=== PATIENT | female | born 1960 | race Caucasian/White ===

== ENCOUNTER 2017-01-21 18:27 | Emergency (ER) | payer OTHER ==
[2017-01-21 18:33] VITALS: BP 154/84; BMI 28.3
--- NOTE | 2017-01-21 19:44 | DR.GENAD ---
HPI - PCP Primary Care Physician: PAWEL - Complaint/Symptoms Chief Complaint Doctors Comments: Patient has had fibromyalgia and her other diagnosis for years but has not been able to get prescription medication because of no insurance. She went to her physician on last week but was told she needed to have lab work done before any medication for pain can be given. She now has insurance and wants pain medication. Chief Complaint:: PT C/O GENERALIZED PAIN ALL OVER FROM FIBROMIALGIA. PT STATES SHE HAS BEEN HAVING PAIN 3 DAYS AGO. 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, Ortho Surgery - Family History History of Family Medical Conditions: Yes Family Medical History: Diabetes Mellitus, Cancer, [place], Hypertension - Social History Does any household member use tobacco: No Alcohol Use: None Do you use any recreational Drugs:: No Lives With: Family Lives Where: Home - infectious screening In the last 2 months have you had wt loss of >10#?: NO Have you had fever, night sweats or hemotysis?: No Have you traveled outside the country in the last 6 months?: No Isolation: Standard ROS - Review of Systems Eyes: No Symptoms Reported ENTM: No Symptoms Reported Respiratoy: No Symptoms Reported Cardiovascular: No Symptoms Reported Gastrointestinal/Abdominal: No Symptoms Reported Genitourinary: No Symptoms Reported Neurological: No Symptoms Reported (generalized pain) Musculoskeletal: Back Pain, Joint Swelling, Hand Integumentary: No Symptoms Reported Hematologic/Lymphatic: No Symptoms Reported Endocrine: No Symptoms Reported Psychiatric: No Symptoms Reported All Other Systems: Reviewed and Negative PE - Vital Signs Vitals: Temperature 98.6 F Pulse Rate 100 Respiratory Rate 20 Blood Pressure [Right Arm] 122/73 Blood Pressure [Left Arm] 109/73 Blood Pressure 154/84 O2 Sat by Pulse Oximetry 97 - General Limitations: No Limitations General Appearance: Alert, In No Apparent Distress - Head Head Exam: Normal Inspection, Atraumatic - Eyes Eye exam: Normal Appearance, PERRL, EOMI - ENT ENT Exam: Normal Exam External Ear Exam: Normal External Inspection TM/Canal Exam: Bilateral Normal Nose Exam: Normal Nose Exam. negative: Sinus Tenderness, Abrasion Mouth Exam: Normal Inspection Throat Exam: Normal Inspection - Neck Neck Exam: Normal Inspection, Full ROM. negative: Tenderness - Chest Chest Inspection: Normal Inspection, Symmetric Chest Wall Rise - Respiratory Respiratory Exam: Normal Lung Sounds Bilat Respiratory Exam: Bilateral Clear to Auscultation - Cardiovascular Cardiovascular Exam: Regular Rate, Normal Rhythm - Abdominal Exam Abdominal Exam: Normal Inspection Abdominal Tenderness: negative: RUQ, RLQ, LUQ, LLQ, Epigastrium, Suprapubic, Diffuse, Mild, Moderate, Severe, Other - Extremities Extremities Exam: Normal Inspection, Full ROM - Back Back Exam: Normal Inspection - Neurologic Neurological Exam: Alert, Oriented X3, CN II-XII Intact - Psychiatric Psychiatric Exam: Normal Affect - Skin Skin Exam: Warm, Dry, Intact - Diagnosis Discharge Problem: Fibromyalgia affecting multiple sites - Discharge Plan Condition: Stable - Follow ups/Referrals Follow ups/Referrals: LEONARDO ARMAS [Primary Care Provider] - 3 days - Instructions
[2017-01-21] MEDS ORDERED: DEMEROL INJ IM ONE (19:50)
[2017-01-21] MEDS ORDERED: DEMEROL INJ ONE (19:52)
== END 2017-01-21 20:12 | disposition home or self-care (01) ==
LOC: ER 18:44
DX: M79.7 Fibromyalgia (principal)
CPT/HCPCS: 96372; 99282; J2175

== ENCOUNTER 2017-01-27 15:37 | Emergency (ER) | payer OTHER ==
[2017-01-27 15:43] VITALS: BP 132/70; BMI 30.2
== END 2017-01-27 17:07 | disposition home or self-care (01) ==
LOC: ER 15:46
DX: M54.5 Low back pain (principal)
CPT/HCPCS: 99281

== ENCOUNTER 2017-03-12 03:14 | Emergency (ER) | payer OTHER ==
[2017-03-12 03:31] VITALS: BP 142/80; BMI 30.2
== END 2017-03-12 03:35 | disposition left against medical advice (07) ==
LOC: ER 03:14
DX: R07.89 Other chest pain (principal)
CPT/HCPCS: 99281

== ENCOUNTER 2017-03-13 16:35 | Observation (INO) | payer OTHER ==
--- NOTE | 2017-03-13 18:06 | DR.H&P ---
H&P - History & Physical for Day of: H&P Date: 03/13/17 - Chief Complaint Chief Complaint: right middle finger infected, elevated blood sugar, fever - Allergies Allergies/Adverse Reactions: Allergies Allergy/AdvReac Type Severity Reaction Status Date / Time Dicyclomine [From Bentyl] Allergy Unknown Verified 01/27/17 15:43 Ketorolac Tromethamine Allergy Unknown Verified 01/27/17 15:43 [From Toradol] Metoclopramide [From Reglan] Allergy Unknown Verified 01/27/17 15:43 Nalbuphine [From Nubain] Allergy Unknown Verified 01/27/17 15:43 Prochlorperazine Allergy Unknown Verified 01/27/17 15:43 [From Compazine] - History of Present Illness History of Present Illness: patient is a 56-year-old white female, patient of Dr. White's, chronically E we'll. Patient was a direct admit from Dr. White's office after presenting with complaints of elevated blood sugar, fatigue, pain all over and infected right middle finger. She states her blood sugar at home was greater than 500 last p.m. today in the office it was 400. Patient is a diabetic as well as has a history of high blood pressure and CHF. Patient has what looks to be a paronychia to the right index finger without any discharge just localized redness and edema and severe tenderness. Plan to admit for further evaluation of hyperglycemia, administer IV antibiotics and wound culture and wound care, chest x-ray and admission labs. 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, Ortho Surgery - Family History Family Medical History: Diabetes Mellitus, Cancer, [place], Hypertension - Social History Does patient currently use any type of tobacco product: No Have you used tobacco products in the last 12 months: No Type of Tobacco Use: None Does any household member use tobacco: No Alcohol Use: None Drug Use: None - Review of Systems Constitutional: Fever, Malaise Eyes: No Symptoms Reported ENT: No Symptoms Reported Respiratory: No Symptoms Reported Cardiovascular: Edema Gastrointestinal: Nausea Genitourinary: No Symptoms Reported Musculoskeletal: Shoulder Pain, Back Pain, Hand Pain, Leg Pain, Neck Pain Skin: Wound Neurological: No Symptoms Reported - Physical Exam Vital Signs: Blood Pressure [Right Arm] 122/73 Blood Pressure [Left Arm] 109/73 Blood Pressure 142/80 Oriented: Normal Eyes: Normal Ear: Normal Nose: Normal Throat: Normal Respiratory: Clear Throughout Cardiovascular: Murmur, Edema (trace edema to bilateral lower extremities) : Normal Auscultation: Bowel Sounds: Normal Palpation: Normal Tenderness: Normal Skin: Red, Tender, Hot (right middle finger, localized redness, edema and tenderness to distal phalange) Musculoskeletal: Hand, Back:Thoracic, Back:Lumbar Mood Description: Calm Speech Pattern: Clear, Appropriate - Assessment/Plan (1) Cellulitis of finger of right hand Status: Acute Plan: ADMIT, WOUND CONSULT AND WOUND CULTURE, BLOOD CULTURES, cbc cmp ON ADMISSION. 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
[2017-03-13] MEDS ORDERED: NS 1000 ML 1,000 ML IV SCH (19:15)
[2017-03-13] MEDS ORDERED: SNACK - Diabetic Appropriate PO SCH (20:00)
[2017-03-13 20:11] LABS: BASOPHILS # (AUTO) 0.1 X10^3/uL (0.0-0.1); BASOPHILS % (AUTO) 0.9 % (0.2-1.0); EOSINOPHILS # (AUTO) 0.3 x10^3/uL (0.0-0.2); EOSINOPHILS % (AUTO) 4.1 % (0.9-2.9); HEMATOCRIT 33.1 % (36.0-47.0); HEMOGLOBIN 11.2 g/dL (12.0-16.0); LYMPHOCYTES # (AUTO) 1.6 X10^3/uL (1.3-2.9); LYMPHOCYTES % (AUTO) 20.6 % (21.0-51.0); MEAN CORPUSCULAR HEMOGLOBIN 27.9 pg (27.0-34.0); MEAN CORPUSCULAR HGB CONC 33.8 g/dL (33.0-35.0); MEAN CORPUSCULAR VOLUME 82.7 fL (80.0-100.0); MONOCYTES # (AUTO) 0.4 x10^3/uL (0.3-0.8); MONOCYTES % (AUTO) 4.9 % (0.0-13.0); NEUTROPHILS # (AUTO) 5.4 x10^3/uL (2.2-4.8); NEUTROPHILS % (AUTO) 69.5 % (42.0-75.0); PLATELET COUNT 226 X10^3/uL (150.0-450.0); RED BLOOD COUNT 4.01 X10^6/uL (3.5-5.4); RED CELL DISTRIBUTION WIDTH 15.4 % (11.6-16.5); WHITE BLOOD COUNT 7.8 X10^3/uL (3.6-10.0)
[2017-03-13 20:21] LABS: ALANINE AMINOTRANSFERASE 36 Units/L (12-78); ALBUMIN 3.2 g/dL (3.4-5.0); ALKALINE PHOSPHATASE 103 Units/L (46-116); ASPARTATE AMINO TRANSFERASE 31 Units/L (15-37); BLOOD UREA NITROGEN 26 mg/dL (7-18); CALCIUM 9.4 mg/dL (8.5-10.1); CARBON DIOXIDE 26.9 mmol/L (21-32); CHLORIDE 100 mmol/L (98-107); COR NA(FOR HYPERGLY) 142 mmol/L (136-145); CREATININE 1.16 mg/dL (0.55-1.02); GLUCOSE 360 mg/dL (65-99); SODIUM 136 mmol/L (136-145); TOTAL PROTEIN 7.8 g/dL (6.4-8.2); eGFR BLACK RACES > 60 (>60); eGFR NON BLACK RACES 51 (>60)
[2017-03-13] MEDS ORDERED: COLACE CAP 100 MG PO SCH (21:00)
[2017-03-13] MEDS: NORCO 7.5/325 MG TAB PO PRN (21:04)
[2017-03-13] MEDS: ZOFRAN INJ 4 MG VIAL IVP PRN (21:05)
[2017-03-13] MEDS: CLEOCIN 600 MG IV PREMIX 600 MG/50 ML BAG IV SCH (21:05)
[2017-03-13] MEDS: LEVAQUIN PREMIX IV 500 MG 500 MG/100 ML BAG IV SCH (21:12)
[2017-03-13] MEDS: HumuLIN R SUBCUT PRN (22:35)
[2017-03-13 22:53] LABS: BILIRUBIN,URINE NEGATIVE (NEGATIVE); BLOOD/HEMOGLOBIN,URINE 1+ (NEGATIVE); GLUCOSE, URINE 4+ (NEGATIVE); KETONES,URINE NEGATIVE (NEGATIVE); LEUKOCYTE ESTERASE ,URINE 2+ (NEGATIVE); NITRITES,URINE POSITIVE (NEGATIVE); PH,URINE 6.5 (5.0 - 8.0); PROTEIN,URINE NEGATIVE (NEGATIVE); UROBILINOGEN,URINE NORMAL (NORMAL)
--- NOTE | 2017-03-13 22:53 | RAD ---
Chest, one view Indication: Cellulitis Comparison: 11/06/2016 Findings: The cardiac silhouette is unremarkable. The lungs are clear, without focal infiltrates or significant pleural effusion. The bony thorax is unremarkable. Impression: No acute chest process. Reported By:
--- NOTE | 2017-03-13 22:53 | RAD ---
Right hand, three views Indication: Right middle finger cellulitis Comparison: None Findings: No cortical disruption or bony erosions identified. The joint spaces are grossly maintaine d. No soft tissue gas is seen. Impression: No radiographic evidence for osteomyelitis. Reported By:
[2017-03-13 23:08] VITALS: BMI 32.1
[2017-03-13 23:09] LABS: APPEARANCE,URINE HAZY (CLEAR); COLOR,URINE YELLOW (YELLOW)
[2017-03-13 23:10] LABS: BACTERIA,URINE 3+ /HPF (NEGATIVE); SQUAMOUS EPITHELIAL CELL,UR FEW /HPF (NEGATIVE)
[2017-03-14] MEDS: ATIVAN TAB 0.5 MG PO PRN ×2 (00:15→12:00)
[2017-03-14] MEDS: NORCO 7.5/325 MG TAB PO PRN ×2 (02:51→10:15)
[2017-03-14] MEDS: ZOFRAN INJ 4 MG VIAL IVP PRN ×2 (02:52→10:15)
[2017-03-14 04:59] LABS: ALANINE AMINOTRANSFERASE 32 Units/L (12-78); ALBUMIN 2.8 g/dL (3.4-5.0); ALKALINE PHOSPHATASE 83 Units/L (46-116); ASPARTATE AMINO TRANSFERASE 29 Units/L (15-37); BLOOD UREA NITROGEN 20 mg/dL (7-18); CALCIUM 9.2 mg/dL (8.5-10.1); CARBON DIOXIDE 29.1 mmol/L (21-32); CHLORIDE 103 mmol/L (98-107); COR CA(FOR HYPOALB) 10.2 mg/dL (8.5-10.1); COR NA(FOR HYPERGLY) 142 mmol/L (136-145); CREATININE 0.99 mg/dL (0.55-1.02); GLUCOSE 205 mg/dL (65-99); SODIUM 139 mmol/L (136-145); TOTAL PROTEIN 7.1 g/dL (6.4-8.2); eGFR BLACK RACES > 60 (>60); eGFR NON BLACK RACES > 60 (>60)
[2017-03-14 05:13] LABS: BASOPHILS # (AUTO) 0.1 X10^3/uL (0.0-0.1); BASOPHILS % (AUTO) 0.8 % (0.2-1.0); EOSINOPHILS # (AUTO) 0.3 x10^3/uL (0.0-0.2); EOSINOPHILS % (AUTO) 4.7 % (0.9-2.9); HEMATOCRIT 30.2 % (36.0-47.0); HEMOGLOBIN 10.3 g/dL (12.0-16.0); LYMPHOCYTES % (AUTO) 30.2 % (21.0-51.0); MEAN CORPUSCULAR HEMOGLOBIN 27.7 pg (27.0-34.0); MEAN CORPUSCULAR VOLUME 81.4 fL (80.0-100.0); MEAN PLATELET VOLUME 9.2 fL (7.4-11.0); MONOCYTES # (AUTO) 0.5 x10^3/uL (0.3-0.8); MONOCYTES % (AUTO) 6.7 % (0.0-13.0); NEUTROPHILS # (AUTO) 3.9 x10^3/uL (2.2-4.8); NEUTROPHILS % (AUTO) 57.6 % (42.0-75.0); PLATELET COUNT 205 X10^3/uL (150.0-450.0); RED BLOOD COUNT 3.71 X10^6/uL (3.5-5.4); RED CELL DISTRIBUTION WIDTH 15.1 % (11.6-16.5); WHITE BLOOD COUNT 6.7 X10^3/uL (3.6-10.0)
[2017-03-14] MEDS: CLEOCIN 600 MG IV PREMIX 600 MG/50 ML BAG IV SCH (05:48)
[2017-03-14] MEDS: HumuLIN R SUBCUT PRN ×2 (05:48→12:12)
[2017-03-14] MEDS: LEVAQUIN PREMIX IV 500 MG 500 MG/100 ML BAG IV SCH (08:49)
[2017-03-14 13:04] VITALS: BP 169/78
--- NOTE | 2017-03-14 13:55 | PCM.DCPLAN ---
Discharge Summary - Admission Date Date of Admission: 03/13/17 - Discharge Date Discharge Date: 03/14/17 - Admission Diagnoses (1) Cellulitis of finger of right hand Status: Acute (2) Uncontrolled diabetes mellitus Status: Inactive (3) CHF (congestive heart failure) Status: Acute (4) Diabetes mellitus type 2 Status: Inactive (5) Essential hypertension Status: Inactive - Discharge Diagnoses Discharge Diagnosis: same as admission - Discharge Medications Discharge Medications: Aspirin [ASPIRIN 325 MG *] 325 mg PO DAILY 03/13/17 [History] Lorazepam [Ativan Tab 0.5 mg] 0.5 mg PO Q8H PRN #30 tab 03/14/17 [Rx] Sulfamethoxazole-Trimethoprim [BACTRIM DS TAB 800/160 MG *] 1 tab PO BID #20 tab 03/14/17 [Rx] - Hospital Course Vital Signs: Temperature 98.7 F Pulse Rate [Right Brachial] 84 Respiratory Rate 20 Blood Pressure [Right Arm] 169/78 Blood Pressure [Left Arm] 109/73 Blood Pressure 142/80 O2 Sat by Pulse Oximetry 97 Latest Lab Results: Laboratory Last Values WBC 6.7 X10^3/uL (3.6-10.0) 03/14/17 03:45 RBC 3.71 X10^6/uL (3.5-5.4) 03/14/17 03:45 Hgb 10.3 g/dL (12.0-16.0) L 03/14/17 03:45 Hct 30.2 % (36.0-47.0) L 03/14/17 03:45 MCV 81.4 fL (80.0-100.0) 03/14/17 03:45 MCH 27.7 pg (27.0-34.0) 03/14/17 03:45 MCHC 34.0 g/dL (33.0-35.0) 03/14/17 03:45 RDW 15.1 % (11.6-16.5) 03/14/17 03:45 Plt Count 205 X10^3/uL (150.0-450.0) 03/14/17 03:45 MPV 9.2 fL (7.4-11.0) 03/14/17 03:45 Neut % 57.6 % (42.0-75.0) 03/14/17 03:45 Lymph % 30.2 % (21.0-51.0) 03/14/17 03:45 Stevens % 6.7 % (0.0-13.0) 03/14/17 03:45 Eos % 4.7 % (0.9-2.9) H 03/14/17 03:45 Baso % 0.8 % (0.2-1.0) 03/14/17 03:45 Neut # 3.9 x10^3/uL (2.2-4.8) 03/14/17 03:45 Lymph # 2.0 X10^3/uL (1.3-2.9) 03/14/17 03:45 Stevens # 0.5 x10^3/uL (0.3-0.8) 03/14/17 03:45 Eos # 0.3 x10^3/uL (0.0-0.2) H 03/14/17 03:45 Baso # 0.1 X10^3/uL (0.0-0.1) 03/14/17 03:45 Absolute Nucleated RBC 0.1 /100WBC 03/14/17 03:45 Sodium 139 mmol/L (136-145) 03/14/17 03:45 Corrected Sodium 142 mmol/L (136-145) 03/14/17 03:45 Potassium 4.2 mmol/L (3.5-5.1) 03/14/17 03:45 Chloride 103 mmol/L (98-107) 03/14/17 03:45 Carbon Dioxide 29.1 mmol/L (21-32) 03/14/17 03:45 BUN 20 mg/dL (7-18) H 03/14/17 03:45 Creatinine 0.99 mg/dL (0.55-1.02) 03/14/17 03:45 Est GFR (MDRD) Af Amer > 60 (>60) 03/14/17 03:45 Est GFR (MDRD) Non-Af > 60 (>60) 03/14/17 03:45 Glucose 205 mg/dL (65-99) H 03/14/17 03:45 Calcium 9.2 mg/dL (8.5-10.1) 03/14/17 03:45 Corrected Calcium 10.2 mg/dL (8.5-10.1) H 03/14/17 03:45 Total Bilirubin 0.30 mg/dL (0.2-1.0) 03/14/17 03:45 AST 29 Units/L (15-37) 03/14/17 03:45 ALT 32 Units/L (12-78) 03/14/17 03:45 Alkaline Phosphatase 83 Units/L (46-116) 03/14/17 03:45 Total Protein 7.1 g/dL (6.4-8.2) 03/14/17 03:45 Albumin 2.8 g/dL (3.4-5.0) L 03/14/17 03:45 Globulin 4.3 g/dL (2.5-4.5) 03/14/17 03:45 Albumin/Globulin Ratio 0.7 Ratio (1.1-2.1) L 03/14/17 03:45 Specimen Type Clean catch urine 03/13/17 22:44 Urine Color Yellow (YELLOW) 03/13/17 22:44 Urine Appearance Hazy (CLEAR) 03/13/17 22:44 Urine pH 6.5 (5.0 - 8.0) 03/13/17 22:44 Ur Specific [place] 1.010 (1.000-1.030) 03/13/17 22:44 Urine Protein Negative (NEGATIVE) 03/13/17 22:44 Urine Glucose (UA) 4+ (NEGATIVE) 03/13/17 22:44 Urine Ketones Negative (NEGATIVE) 03/13/17 22:44 Urine Occult Blood 1+ (NEGATIVE) 03/13/17 22:44 Urine Nitrite Positive (NEGATIVE) 03/13/17 22:44 Urine Bilirubin Negative (NEGATIVE) 03/13/17 22:44 Urine Urobilinogen Normal (NORMAL) 03/13/17 22:44 Ur Leukocyte Esterase 2+ (NEGATIVE) 03/13/17 22:44 Urine RBC 3-4 /HPF (NEGATIVE) 03/13/17 22:44 Urine WBC 10-12 /HPF (NEGATIVE) 03/13/17 22:44 Ur Squamous Epith Cells Few /HPF (NEGATIVE) 03/13/17 22:44 Urine Bacteria 3+ /HPF (NEGATIVE) 03/13/17 22:44 Ur Culture Indicated? Yes/culture set up 03/13/17 22:44 Hospital Course: patient is a 56-year-old white female who was admitted from Dr. White's office one day ago with complaints of elevated elevated blood sugar patient has a history of diabetes currently on sliding-scale insulin. Patient also had a paronychia to her right middle finger with mild localized redness. Patient was admitted for further evaluation of low-grade fever and elevated blood sugar. Patient also has a history of CHF and kidney disease patient was concerned she may be dehydrated. On admission patient's chemistry and CBC were stable with hyperglycemia noted. Patient was covered with sliding scale insulin. Patient received IV clindamycin and Levaquin she also had urine culture and wound culture which are pending. Patient on exam this morning had marked improvement redness to affected right middle finger. Patient states she feels much improved patient sugar was 200 on chemistry this a.m. patient's chest x-ray was without findings of CHF Patient with observation status. With improved blood sugars and stable labs planned to discharge patient home on Bactrim by mouth twice a day. Patient instructed to take sliding-scale insulin as instructed follow a low-carb diet and be compliant with medication. Patient instructed to follow-up on Sunday with Dr. White. Patient to continue home medications as well as the Bactrim. Patient will need a follow-up on Sunday to review culture results and follow-up on skin infection. Patient verbalized understanding. Patient also complained of some anxiety due to anniversary of her 's . Patient has a history of depression and anxiety patient was given a prescription for Ativan 0.5 mg by mouth daily when necessary for anxiety. Patient's condition was improved on discharge she left private vehicle with family member improved and stable. - Discharge Plan Disposition: HOME, SELF-CARE Condition: Stable Prescriptions: Lorazepam [Ativan Tab 0.5 mg] 0.5 mg PO Q8H PRN #30 tab PRN Reason: Anxiety Sulfamethoxazole-Trimethoprim [BACTRIM DS TAB 800/160 MG *] 1 tab PO BID #20 tab - Follow ups/Referrals Follow ups/Referrals: PIERRE WHITE [Primary Care Provider] - 03/19/17 1:45 pm - Instructions Instructions: Shortness of Breath, [id number], Nonspecific Chest Pain, Cellulitis, [id number], Hypertension, [id number]-[id number], Lorazepam tablets, Heart Failure, [id number], Type 2 Diabetes Mellitus, Adult, [id number], Sulfamethoxazole; Trimethoprim, SMX-TMP tablets
== END 2017-03-14 13:00 | disposition home or self-care (01) ==
LOC: MED/SURG 16:35
PROVIDERS: ADMIT Internal Medicine; ATTEND Internal Medicine
DX: L03.011 Cellulitis of right finger (principal); B95.62 Methicillin resistant Staphylococcus aureus infection as the cause of diseases classified elsewhere; N39.0 Urinary tract infection, site not specified; B96.29 Other Escherichia coli [E. coli] as the cause of diseases classified elsewhere; R50.9 Fever, unspecified; E11.65 Type 2 diabetes mellitus with hyperglycemia; I10 Essential (primary) hypertension; I50.9 Heart failure, unspecified; Z79.4 Long term (current) use of insulin; D64.89 Other specified anemias
CPT/HCPCS: 36415; 71010; 73130; 80053; 81001; 85025; 87070; 87075; 87077; 87086; 87088; 87186; 87205; A4222; G0378; J0077; J1815; J1956; J2405

== ENCOUNTER 2017-08-27 18:36 | Emergency (ER) | payer SELFPAY ==
[~2017-08-27 18:36] MED LIST: NITROSTAT SL ONE
[2017-08-27] MEDS ORDERED: ASPIRIN ONE (18:46)
[2017-08-27] MEDS ORDERED: NITROSTAT SL ONE (18:47)
[2017-08-27 18:52] VITALS: BMI 28.9
[2017-08-27] MEDS ORDERED: ASPIRIN PO STA (18:52)
[2017-08-27 19:03] LABS: BASOPHILS # (AUTO) 0.1 X10^3/uL (0.0-0.1); EOSINOPHILS # (AUTO) 0.4 x10^3/uL (0.0-0.2); EOSINOPHILS % (AUTO) 4.7 % (0.9-2.9); HEMATOCRIT 34.5 % (36.0-47.0); HEMOGLOBIN 11.7 g/dL (12.0-16.0); LYMPHOCYTES % (AUTO) 33.1 % (21.0-51.0); MEAN CORPUSCULAR HEMOGLOBIN 28.1 pg (27.0-34.0); MEAN CORPUSCULAR HGB CONC 33.9 g/dL (33.0-35.0); MEAN CORPUSCULAR VOLUME 82.9 fL (80.0-100.0); MEAN PLATELET VOLUME 9.2 fL (7.4-11.0); MONOCYTES # (AUTO) 0.6 x10^3/uL (0.3-0.8); MONOCYTES % (AUTO) 6.9 % (0.0-13.0); NEUTROPHILS % (AUTO) 54.3 % (42.0-75.0); PLATELET COUNT 252 X10^3/uL (150.0-450.0); RED BLOOD COUNT 4.16 X10^6/uL (3.5-5.4); RED CELL DISTRIBUTION WIDTH 15.6 % (11.6-16.5); WHITE BLOOD COUNT 9.1 X10^3/uL (3.6-10.0)
--- NOTE | 2017-08-27 19:13 | RAD ---
Single-view chest series: Indication: Chest pain, dizziness. Comparison: Chest series dated March 13, 2017. Technique: Single AP view of the chest obtained portably. Findings/impression: Lung volumes are normal without acute cardiopulmonary abnormality. There is no c ardiomegaly. No acute skeletal abnormality is appreciated. Reported By:
[2017-08-27 19:23] LABS: ALANINE AMINOTRANSFERASE 37 Units/L (12-78); ALBUMIN 3.4 g/dL (3.4-5.0); ALKALINE PHOSPHATASE 112 Units/L (46-116); BLOOD UREA NITROGEN 24 mg/dL (7-18); CALCIUM 9.2 mg/dL (8.5-10.1); CHLORIDE 87 mmol/L (98-107); CKMB % 1.5 % (<4); CREATINE KINASE 65 Units/L (26-192); CREATINE KINASE MB < 1.0 ng/mL (0-4.0); CREATININE 1.53 mg/dL (0.55-1.02); TOTAL PROTEIN 8.3 g/dL (6.4-8.2); TROPONIN I < 0.02 ng/mL (0-1.5); eGFR NON BLACK RACES 37 (>60)
[2017-08-27 19:31] LABS: ASPARTATE AMINO TRANSFERASE 20 Units/L (15-37)
[2017-08-27 19:32] LABS: eGFR BLACK RACES 45 (>60)
[2017-08-27 19:44] LABS: COR NA(FOR HYPERGLY) 137 mmol/L (136-145); SODIUM 126 mmol/L (136-145)
--- NOTE | 2017-08-27 21:38 | DR.CP ---
HPI - Time Seen Time seen: 18:30 - PCP Primary Care Physician: ellie - HPI Comment HPI Comment: MID STERNAL CHEST PAIN RADIATING TO LEFT ARM STARTED 15MINS BEFORE COMING TO ED. PAIN ASSOCIATED WITH WEAKNESS, SOB AND NAUSEA. - Complaint Chief Complaint Doctor Comments: CHEST PAIN Chief Complaint:: PT C/O MIDSTERNAL CHEST PAIN RADIATING TO HER LT ARM. ONSET ABOUT 15 MINUTES AGO. HX OF SAME. PT STATES NITRO USUALLY HELPS HER BTUT SHE WAS OUT TODAY Self Treatment fo Chief Complaint: PT HAS NITRO PATCH FROM YESTERDAY ON CHEST. REMOVED ON ARRIVAL - Reviewed Nurses Notes Review: Yes - Source History Provided: Patient - Mode of Arrival Mode of Arrival: Ambulatory - Timing Onset of Chief Complaint: 08/27/17 Came on: Suddenly Pain: Present Now - Duration Duration: Constant Duration: Minutes - Location Location of Chest Pain: Left, Chest Chest Pain Radiation Location: Left Arm - Context Onset: With heavy exertion Cardiac Risk Factors: Family History, Hyperlipidemia, HTN, Diabetes PE Risk Factors: None History of: Similar pain in the past, Angina, Angioplasty Prehospital Care: None - Quality Quality: Sharp, Pressure like - Severity Severity: Moderate - Modifying Factors Worsens: Nothing Impoves: Nothing - Associated Signs and Symptoms Associated Signs and Symptoms: Shortness of Breath PMH - PMH Past Medical History: Yes Past Medical History: Anemia, Anxiety, Arthritis, Asthma, CHF, Coronary Artery Disease, Diabetes, Dyslipidemia, Migraines, GERD, Hypertension, Kidney Stones, [place] Past Surgical History: Yes Surgical History: Appendectomy, CABG/Valve Surgery, 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 negative: Chills, Fever Eyes: No Symptoms Reported ENTM: No Symptoms Reported Respiratoy: Non-Productive Cough, Short of Breath, Wheezing. negative: Productive Cough, Hemoptysis Cardiovascular: Chest Pain. negative: Edema, Palpitations Gastrointestinal/Abdominal: Nausea Genitourinary: No Symptoms Reported Neurological: Emotional Problems, Weakness, Dizziness Musculoskeletal: Back Pain, Muscle Pain Integumentary: No Symptoms Reported Hematologic/Lymphatic: No Symptoms Reported Endocrine: negative: Flushing, Increased Thirst, Increased Urine All Other Systems: Reviewed and Negative PE - Vitals Vitals: Temperature 98.7 F Pulse Rate [Left Radial] 82 Pulse Rate 74 Respiratory Rate 18 Blood Pressure [Right Arm] 169/78 Blood Pressure [Left Arm] 110/72 Blood Pressure 179/82 O2 Sat by Pulse Oximetry 98 - General Limitations: No Limitations General Appearance: Alert - Head Head Exam: Normal Inspection - Eyes Eye exam: Normal Appearance - ENT ENT Exam: Normal External Ear Exam - Chest Chest Inspection: Symmetric Chest Wall Rise - Respiratory Respiratory Exam: Normal Lung Sounds Bilat Respiratory Exam: Bilateral Clear to Auscultation - Cardiovascular Cardiovascular Exam: Regular Rate, Normal Rhythm, Normal Heart Sounds Pulse: Normal, Radial, Femoral Edema: Normal - Abdominal Exam Abdominal Exam: Normal Bowel Sounds, Soft - Extremities Extremities Exam: Normal Inspection, Full ROM, Tenderness - Back Back Exam: Paraspinal Tenderness - Neurologic Neurological Exam: Alert, Oriented X3, CN II-XII Intact, Normal Gait, Reflexes Normal. negative: Motor Sensory Deficit - Psychiatric Psychiatric Exam: Normal Affect, Normal Mood - Skin Skin Exam: Normal Color MDM - Additional Information Additional Information Obtained From: Family - Differential Diagnosis Differential Diagnosis: Angina, Chest Wall Pain, Esophageal Reflux/Spasm, Gastritis, Myocardial Infarction, Pericarditis, Pleuritis, Pancreatitis, Pneumonia, Pneumothorax Course - Treatment Treatment: SEE ORDERS. NTG AND ASPIRIN IN ED. - Education/Counseling Education/Counseling: Patient, Education Educated On: Treatment, Diagnosis, Needs for Follow Up ROR - Labs Reviewed Laboratory Results Reviewed?: Yes Result Diagrams: 08/27/17 18:40 08/27/17 18:40 Laboratory: WBC 9.1 X10^3/uL (3.6-10.0) 08/27/17 18:40 RBC 4.16 X10^6/uL (3.5-5.4) 08/27/17 18:40 Hgb 11.7 g/dL (12.0-16.0) L 08/27/17 18:40 Hct 34.5 % (36.0-47.0) L 08/27/17 18:40 MCV 82.9 fL (80.0-100.0) 08/27/17 18:40 MCH 28.1 pg (27.0-34.0) 08/27/17 18:40 MCHC 33.9 g/dL (33.0-35.0) 08/27/17 18:40 RDW 15.6 % (11.6-16.5) 08/27/17 18:40 Plt Count 252 X10^3/uL (150.0-450.0) 08/27/17 18:40 MPV 9.2 fL (7.4-11.0) 08/27/17 18:40 Neut % 54.3 % (42.0-75.0) 08/27/17 18:40 Lymph % 33.1 % (21.0-51.0) 08/27/17 18:40 [place] % 6.9 % (0.0-13.0) 08/27/17 18:40 Eos % 4.7 % (0.9-2.9) H 08/27/17 18:40 Baso % 1.0 % (0.2-1.0) 08/27/17 18:40 Neut # 5.0 x10^3/uL (2.2-4.8) H 08/27/17 18:40 Lymph # 3.0 X10^3/uL (1.3-2.9) H 08/27/17 18:40 [place] # 0.6 x10^3/uL (0.3-0.8) 08/27/17 18:40 Eos # 0.4 x10^3/uL (0.0-0.2) H 08/27/17 18:40 Baso # 0.1 X10^3/uL (0.0-0.1) 08/27/17 18:40 Absolute Nucleated RBC 0.0 /100WBC 08/27/17 18:40 INR Target Range - 08/27/17 18:40 INR 0.94 (0.8-1.3) 08/27/17 18:40 PTT 26.2 SECONDS (22.9-36.5) 08/27/17 18:40 PTT Comment - 08/27/17 18:40 Sodium 126 mmol/L (136-145) L 08/27/17 18:40 Corrected Sodium 137 mmol/L (136-145) 08/27/17 18:40 Potassium 3.9 mmol/L (3.5-5.1) 08/27/17 18:40 Chloride 87 mmol/L (98-107) L 08/27/17 18:40 Carbon Dioxide 24.0 mmol/L (21-32) 08/27/17 18:40 BUN 24 mg/dL (7-18) H 08/27/17 18:40 Creatinine 1.53 mg/dL (0.55-1.02) H 08/27/17 18:40 Est GFR (MDRD) Af Amer 45 (>60) L 08/27/17 18:40 Est GFR (MDRD) Non-Af 37 (>60) L 08/27/17 18:40 Glucose 541 mg/dL (65-99) H* 08/27/17 18:40 Calcium 9.2 mg/dL (8.5-10.1) 08/27/17 18:40 Corrected Calcium TNP 08/27/17 18:40 Total Bilirubin 0.50 mg/dL (0.2-1.0) 08/27/17 18:40 AST 20 Units/L (15-37) 08/27/17 18:40 ALT 37 Units/L (12-78) 08/27/17 18:40 Alkaline Phosphatase 112 Units/L (46-116) 08/27/17 18:40 Creatine Kinase 65 Units/L (26-192) 08/27/17 18:40 CK-MB (CK-2) < 1.0 ng/mL (0-4.0) 08/27/17 18:40 CK/CKMB % Calc 1.5 % (<4) 08/27/17 18:40 Troponin I < 0.02 ng/mL (0-1.5) 08/27/17 18:40 Total Protein 8.3 g/dL (6.4-8.2) H 08/27/17 18:40 Albumin 3.4 g/dL (3.4-5.0) 08/27/17 18:40 Globulin 4.9 g/dL (2.5-4.5) H 08/27/17 18:40 Albumin/Globulin Ratio 0.7 Ratio (1.1-2.1) L 08/27/17 18:40 Acetone, Semi-Quant Negative (NEGATIVE) 08/27/17 18:40 - XRAY XRAY Interpreted by: Radiologist XRAY Findings: REPORT DISCUSS WITH PATIENT. - Diagnosis Discharge Problem: Hyperglycemia Chest pain Qualifiers: Chest pain type: precordial pain Qualified Code(s): R07.2 - Precordial pain - Discharge Plan Disposition: 01 HOME, SELF-CARE Condition: Stable Prescriptions: Hydroxyzine Pamoate [Vistaril] 25 mg PO TID PRN #15 cap PRN Reason: - Follow ups/Referrals Follow ups/Referrals: PIERRE NEVAREZ [Primary Care Provider] - 3 days - Instructions Instructions: Hyperglycemia, [id number], Chest Pain Observation Additional Instructions: RETURN TO ED IF WORSE.
[2017-08-27] MEDS ORDERED: VISTARIL PO ONE ×2 (21:45→21:55)
[2017-08-27 22:01] VITALS: BP 110/72
== END 2017-08-27 22:00 | disposition home or self-care (01) ==
LOC: ER 18:36
DX: R07.2 Precordial pain (principal); R73.9 Hyperglycemia, unspecified
CPT/HCPCS: 36415; 71010; 80053; 82009; 82550; 82553; 84484; 85025; 85610; 85730; 93005; 93010; 96365; 99283; 99285; A4222; Q0177

== ENCOUNTER 2017-10-21 15:24 | Emergency (ER) | payer SELFPAY ==
[2017-10-21 15:33] VITALS: BP 138/67; BMI 31.1
--- NOTE | 2017-10-21 17:04 | RAD ---
Examination: Right ribs, five views History: Pain Finding : No definite fracture, contour deformity or bone destruction. No evidence for pleural effusi on or pneumothorax. Impression: No acute or significant findings. Reported By:
--- NOTE | 2017-10-21 17:11 | DR.EXTPAIN ---
HPI - Time seen Time seen: 17:00 - PCP Primary Care Physician: ellie - Complaint/Symptoms Chief Complaint Doctor Comments: Patient admits to being seen by her primary care physician for the arthritis and back pain. The dose of medication is not helping She presents with complaint jose r right sided rib pain secondary to an injury years ago. Chief Complaint:: PT C/O RT RIB PAIN. 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 PT STATES SHE HAS BEEN HAVING TO SLEEP UPRIGHT DUE TO THE PAIN - Source History Provided: Patient - Mode of arrival Mode of Arrival: Ambulatory - Timing Onset of Chief Complaint: 10/19/17 PMH - PMH Past Medical History: Yes Past Medical History: Anemia, Anxiety, Arthritis, Asthma, CHF, Coronary Artery Disease, Diabetes, Dyslipidemia, Migraines, GERD, Hypertension, Kidney Stones, [place] Past Surgical History: Yes Surgical History: Appendectomy, CABG/Valve Surgery, Cholecystectomy, [employer] Surgery , Hysterectomy, Ortho Surgery - Family History History of Family Medical Conditions: Yes Family Medical History: Diabetes Mellitus, Cancer, [place], Hypertension - Social History Does any household member use tobacco: No Alcohol Use: None Do you use any recreational Drugs:: No Lives With: Family Lives Where: Home - infectious screening In the last 2 months have you had wt loss of >10#?: NO Have you had fever, night sweats or hemotysis?: No Have you traveled outside the country in the last 6 months?: No Isolation: Standard ROS - Review of Systems Constitutional: No Symptoms Reported Eyes: No Symptoms Reported ENTM: No Symptoms Reported Respiratoy: No Symptoms Reported Cardiovascular: No Symptoms Reported Gastrointestinal/Abdominal: No Symptoms Reported Genitourinary: No Symptoms Reported Neurological: No Symptoms Reported Musculoskeletal: Muscle Pain, Right (mid rib paiin) Hematologic/Lymphatic: No Symptoms Reported Endocrine: No Symptoms Reported Psychiatric: No Symptoms Reported All Other Systems: Reviewed and Negative PE - Vital Signs Vitals: Temperature 98.3 F Pulse Rate 80 Respiratory Rate 18 Blood Pressure [Right Arm] 169/78 Blood Pressure [Left Arm] 110/72 Blood Pressure 138/67 O2 Sat by Pulse Oximetry 97 - General Limitations: Physical Limitation (Decreased ROM due to right rib pain according to patient) General Appearance: Alert, In No Apparent Distress - Head Head Exam: Normal Inspection, Atraumatic - Eyes Eye exam: Normal Appearance, PERRL, EOMI - ENT ENT Exam: Normal Exam, Normal Oropharynx - Neck Neck Exam: Normal Inspection, Full ROM - Chest Chest Inspection: Normal Inspection - Respiratory Respiratory Exam: Normal Lung Sounds Bilat Respiratory Exam: Bilateral Clear to Auscultation - Cardiovascular Cardiovascular Exam: Regular Rate, Normal Rhythm - Abdominal Exam Abdominal Exam: Normal Inspection, Normal Bowel Sounds Abdominal Tenderness: negative: RUQ, RLQ, LUQ, LLQ, Epigastrium, Suprapubic, Diffuse, Mild, Moderate, Severe, Other - Extremities Extremities Exam: Normal Inspection, Full ROM - Upper Extremities Shoulder Exam: Normal Inspection, Full ROM Arm Exam: Normal Inspection Elbow Exam: Normal Inspection Forearm Exam: Normal Inspection Hand Exam: Normal Inspection Neuromotor Exam: Normal Exam Neurosensory Exam: Normal Exam Hand Tendon Exam: Flexor Digitorium Profundus (Location) Upper Ext. Vascular Exam: Capillary Refill - Lower Extremities Hip/Pelvis Exam: Normal Inspection Upper Leg Exam: Normal Inspection Knee Exam: Normal Inspection Lower Leg Exam: Normal Inspection Ankle Exam: Normal Inspection Foot/Toe Exam: Normal Inspection Neurovascular/Tendon Exam: Normal Capillary Refill Gait Exam: Observed and Normal - Back Back Exam: Normal Inspection, Tenderness (tenderness to right mid lateral rib cage.) ROR - XRAY XRAY Interpreted by: Radiologist (Chest: No acute abnormality noted) - Diagnosis Discharge Problem: Rib pain on right side - Discharge Plan Condition: Stable - Follow ups/Referrals Follow ups/Referrals: IPERRE NEVAREZ [Primary Care Provider] - 3 days - Instructions
[2017-10-21] MEDS ORDERED: VALIUM INJ IM ONE (17:18)
[2017-10-21] MEDS ORDERED: VALIUM INJ ONE (17:25)
== END 2017-10-21 17:49 | disposition home or self-care (01) ==
LOC: ER 15:24
DX: R07.81 Pleurodynia (principal)
CPT/HCPCS: 71111; 96372; 99282; J3360

== ENCOUNTER → 2017-12-20 | Outpatient (CLI) | payer SELFPAY ==
--- NOTE | 2017-12-21 16:02 | CT ---
History: Low back pain Study: CT lumbar spine without IV contrast Findings: Thin-section axial images were obtained through the lumbar spine. Multiplanar reformations were performed. Images from T10 through the mid sacrum were performed. At T10- T11, T11-T12, and T12-L1, no central or foraminal stenosis is seen. At L1-L2, mild facet hypertrophy is seen without central or foraminal stenosis. Mild anterior spurrin g is noted. At L2-L3, mild facet hypertrophy is seen with mild broad-based disc bulge. No central or foraminal st enosis is evident. At L3-L4, mild facet hypertrophy is seen with moderate broad-based disc bulge. Mild central canal ole nosis is seen without obvious foraminal narrowing At L4-L5, moderate facet hypertrophy is seen with broad-based disc bulge and mild central canal steno sis. There is at least mild left foraminal stenosis seen due to asymmetric disc bulge At L5-S1, moderate broad-based disc bulge is seen. No central or foraminal stenosis is evident. Moder ate facet arthrosis is evident. Incidental note is made of a 2 mm nonobstructive calculus in the left inferior renal pole. Scattered aortic plaque is seen. Impression: 1. Varying degrees evident facet hypertrophy and disc bulge with mild central canal stenosis noted at L3-L4 and L4-L5. 2. There is at least mild left foraminal stenosis L4-L5 due to asymmetric disc protrusion. Reported By:
== END | disposition home or self-care (01) ==
LOC: RAD 15:08
PROVIDERS: ATTEND Internal Medicine
DX: M51.26 Other intervertebral disc displacement, lumbar region (principal); M48.061 Spinal stenosis, lumbar region without neurogenic claudication
CPT/HCPCS: 72131

== ENCOUNTER 2017-12-25 06:26 | Emergency (ER) | payer SELFPAY ==
[2017-12-25 06:31] VITALS: BP 116/66; BMI 27.4
[2017-12-25] MEDS ORDERED: DEMEROL INJ IM ONE (06:56)
[2017-12-25] MEDS ORDERED: PHENERGAN INJ 25 MG IM ONE (06:56)
--- NOTE | 2017-12-25 06:58 | DR.GENAD ---
HPI - PCP Primary Care Physician: GERI - HPI Comment HPI Comment: LEFT HAND AND WRIST SWOLLEN FROM ARTHRITIS. HOME MEDICATION DID NOT HELP. - Complaint/Symptoms Chief Complaint Doctors Comments: PAIN LEFT WRIST AND HAND TIMES SEVERAL HOURS. Chief Complaint:: LEFT WRIST PAIN RADIATES DOWN TO FINGER TIPS. STABBING PAINS. Self Treatment fo Chief Complaint: LORCET, GOODY POWDERS, IBUPROFEN, - Nurses notes reviewed Nurses Notes Review: Yes - Source History Provided: Patient - Mode of Arrival Mode of Arrival: Ambulatory - Timing Onset of Chief Complaint: 12/25/17 Came on: Suddenly - Duration Duration: Constant Duration: Days - Severity Severity: Moderate PMH - PMH Past Medical History: Yes Past Medical History: Anemia, Anxiety, Arthritis, Asthma, CHF, Coronary Artery Disease, Diabetes, Dyslipidemia, Migraines, GERD, Hypertension, Kidney Stones, [place] Past Surgical History: Yes Surgical History: Appendectomy, CABG/Valve Surgery, Cholecystectomy, [employer] Surgery , Hysterectomy, Ortho Surgery - Family History History of Family Medical Conditions: Yes Family Medical History: Diabetes Mellitus, Cancer, [place], Hypertension - Social History Does patient currently use any type of tobacco product: No Have you used tobacco products in the last 12 months: No Type of Tobacco Use: None Alcohol Use: None Do you use any recreational Drugs:: No Lives Where: Home - infectious screening Have you traveled outside the country in the last 6 months?: No Isolation: Standard ROS - Review of Systems Constitutional: No Symptoms Reported Eyes: No Symptoms Reported ENTM: No Symptoms Reported Respiratoy: No Symptoms Reported Cardiovascular: No Symptoms Reported Gastrointestinal/Abdominal: No Symptoms Reported Genitourinary: No Symptoms Reported Neurological: Numbness Musculoskeletal: Joint Pain, Muscle Pain, Left, Wrist, Hand Integumentary: Change in Color Hematologic/Lymphatic: Easy Bleeding, Easy Bruising Endocrine: No Symptoms Reported All Other Systems: Reviewed and Negative PE - Vital Signs Vitals: Temperature 98.0 F Pulse Rate 77 Respiratory Rate 16 Blood Pressure [Right Arm] 169/78 Blood Pressure [Left Arm] 110/72 Blood Pressure 116/66 O2 Sat by Pulse Oximetry 98 - General Limitations: No Limitations General Appearance: Alert - Head Head Exam: Normal Inspection - Eyes Eye exam: Normal Appearance - ENT ENT Exam: Normal External Ear Exam External Ear Exam: Normal External Inspection TM/Canal Exam: Bilateral Normal Nose Exam: Normal Nose Exam Mouth Exam: Normal Inspection Throat Exam: Normal Inspection - Neck Neck Exam: Trachea Midline - Chest Chest Inspection: Symmetric Chest Wall Rise - Respiratory Respiratory Exam: Normal Lung Sounds Bilat Respiratory Exam: Bilateral Clear to Auscultation - Cardiovascular Cardiovascular Exam: Regular Rate, Normal Rhythm, Normal Heart Sounds - Abdominal Exam Abdominal Exam: Normal Inspection - Extremities Extremities Exam: Tenderness (LEFT HAND AND WRIST SWOLLEN AND TENDER. PABLO.) - Back Back Exam: Paraspinal Tenderness - Neurologic Neurological Exam: Alert, Oriented X3 - Psychiatric Psychiatric Exam: Normal Affect, Normal Mood - Skin Skin Exam: Normal Color MDM - Additional Information Additional Information Obtained From: Family - Differential Diagnosis Differential Diagnosis: ARTHRITIS, MUSCULOSKELETAL PAIN. Course - Treatment Treatment: SEE ORDERS. - Education/Counseling Education/Counseling: Patient, Family, Education Educated On: Diagnosis, Needs for Follow Up - Diagnosis Discharge Problem: Arthritis, Musculoskeletal pain - Discharge Plan Condition: Stable - Follow ups/Referrals Follow ups/Referrals: PIERRE NEVAREZ [Primary Care Provider] - 3 days - Instructions Instructions: Arthritis, Musculoskeletal Pain Additional Instructions: RETURN TO ED IF WORSE.
[2017-12-25] MEDS ORDERED: PHENERGAN INJ 25 MG ONE (07:07)
[2017-12-25] MEDS ORDERED: DEMEROL INJ ONE (07:08)
== END 2017-12-25 07:50 | disposition home or self-care (01) ==
LOC: ER 06:26
DX: M19.90 Unspecified osteoarthritis, unspecified site (principal); M79.1 Myalgia
CPT/HCPCS: 96372; 99282; J2175; J2550

== ENCOUNTER 2018-07-11 15:48 | Observation (INO) ==
--- NOTE | 2018-07-11 17:44 | DR.H&P ---
H&P - History & Physical for Day of: H&P Date: 07/11/18 - Chief Complaint Chief Complaint: fever, low bp, weakness, nausea and diarrhea, recent uti, elevated blood sugar - History of Present Illness History of Present Illness: 57 [address] SLOANO OFFICE AFTER PRESENTING FOR ER FOLLOW UP. PT WAS IN [place] ER 2 WEEKS AGO WITH "SEVERE KIDNEY INFECTION" WITH ACUTE RENAL FAILURE, PT STATES SHE HAS TAKEN ATBX AND NOW HAD CONTINUED WEAKNESS, NAUSEA AND DIARRHEA, DYSURIA, ELEVATED BLOOD SUGAR WITH KNOWN IDD. PT CO FEVER AND LOW BLOOD PRESSURE. PT REPORT BP 80/50 AT HOME. PT HAD TEMP OFFICE 100.4. PT HAS PMH OF DM, HTN, CAD, OA, TREY. 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, Hysterectomy, Ortho Surgery - Family History Family Medical History: Diabetes Mellitus, Cancer, [place], Hypertension - Social History Does patient currently use any type of tobacco product: No Have you used tobacco products in the last 12 months: No Type of Tobacco Use: None Does any household member use tobacco: No Alcohol Use: None Drug Use: None - Medications Home Medications: dicyclomine [From Bentyl] Allergy (Verified 03/29/18 20:23) ketorolac [From Toradol] Allergy (Verified 03/29/18 20:23) metoclopramide [From Reglan] Allergy (Verified 03/29/18 20:23) nalbuphine [From Nubain] Allergy (Verified 03/29/18 20:23) prochlorperazine [From Compazine] Allergy (Verified 03/29/18 20:23) - Review of Systems Constitutional: Fever, Chills, Weakness, Malaise ENT: No Symptoms Reported Respiratory: No Symptoms Reported Cardiovascular: No Symptoms Reported Gastrointestinal: Nausea, Diarrhea Genitourinary: Dysuria Musculoskeletal: Back Pain, Leg Pain Skin: No Symptoms Reported Neurological: Weakness - Physical Exam Vital Signs: Blood Pressure [Right Arm] 169/78 Blood Pressure [Left Arm] 127/75 Blood Pressure 127/75 Oriented: Normal Eyes: Normal Ear: Normal Nose: Normal Throat: Dry Respiratory: Clear Throughout Cardiovascular: Normal, Edema (BILATERAL LE TRACE EDEMA) : Normal Auscultation: Bowel Sounds: Normal Palpation: Normal Tenderness: Normal Skin: Decreased Turgur Musculoskeletal: Back:Lumbar Psychiatric: Anxiety Mood Description: Anxious Affect: Anxious Speech Pattern: Clear, Appropriate, Excessive - Assessment/Plan (1) Hyperglycemia Status: Acute Plan: ADMIT, CBC CMP ACETONE ON ADMISSION. BC AND UA/UC, CXR ON ADMISSION. CT ABD PELVIS R/O PYELONEPHTITIS. IV CIPRO, STOOL STUDIES. SSI, CLEAR LIQUIDS, N AUSEA CONTROL. REPEAT AM LABS, GENTLE HYDRATION (2) Diarrhea Status: Acute (3) UTI (urinary tract infection) Status: Acute (4) Fever Status: Acute (5) CHF (congestive heart failure) Status: Acute (6) GERD (gastroesophageal reflux disease) Status: Chronic (7) Diabetes mellitus type 1, uncontrolled Status: Chronic - Allergies Allergies/Adverse Reactions: Allergies Allergy/AdvReac Type Severity Reaction Status Date / Time dicyclomine [From Bentyl] Allergy Verified 03/29/18 20:23 ketorolac [From Toradol] Allergy Verified 03/29/18 20:23 metoclopramide [From Reglan] Allergy Verified 03/29/18 20:23 nalbuphine [From Nubain] Allergy Verified 03/29/18 20:23 prochlorperazine Allergy Verified 03/29/18 20:23 [From Compazine]
[2018-07-11] MEDS: CIPRO IV 400 MG PREMIX* 400 MG/200 ML IV.SOLN. IV SCH ×2 (18:02→21:02)
[2018-07-11] MEDS: NS 1000 ML 1,000 ML IV SCH (18:02)
[2018-07-11 18:16] LABS: BASOPHILS # (AUTO) 0.1 X10^3/uL (0.0-0.1); BASOPHILS % (AUTO) 0.7 % (0.2-1.0); EOSINOPHILS # (AUTO) 0.3 x10^3/uL (0.0-0.2); EOSINOPHILS % (AUTO) 3.4 % (0.9-2.9); HEMATOCRIT 32.6 % (36.0-47.0); HEMOGLOBIN 11.1 g/dL (12.0-16.0); LYMPHOCYTES # (AUTO) 2.4 X10^3/uL (1.3-2.9); LYMPHOCYTES % (AUTO) 29.1 % (21.0-51.0); MEAN CORPUSCULAR HEMOGLOBIN 28.8 pg (27.0-34.0); MEAN CORPUSCULAR VOLUME 84.7 fL (80.0-100.0); MEAN PLATELET VOLUME 8.5 fL (7.4-11.0); MONOCYTES # (AUTO) 0.6 x10^3/uL (0.3-0.8); MONOCYTES % (AUTO) 6.7 % (0.0-13.0); NEUTROPHILS % (AUTO) 60.1 % (42.0-75.0); PLATELET COUNT 265 X10^3/uL (150.0-450.0); RED BLOOD COUNT 3.85 X10^6/uL (3.5-5.4); RED CELL DISTRIBUTION WIDTH 16.4 % (11.6-16.5); WHITE BLOOD COUNT 8.3 X10^3/uL (3.6-10.0)
[2018-07-11 18:24] LABS: ALANINE AMINOTRANSFERASE 39 Units/L (12-78); ALBUMIN 3.3 g/dL (3.4-5.0); ALKALINE PHOSPHATASE 115 Units/L (46-116); ASPARTATE AMINO TRANSFERASE 28 Units/L (15-37); BLOOD UREA NITROGEN 25 mg/dL (7-18); CALCIUM 8.9 mg/dL (8.5-10.1); CHLORIDE 99 mmol/L (98-107); COR CA(FOR HYPOALB) 9.5 mg/dL (8.5-10.1); COR NA(FOR HYPERGLY) 141 mmol/L (136-145); CREATININE 1.14 mg/dL (0.55-1.02); SODIUM 136 mmol/L (136-145); TOTAL PROTEIN 7.8 g/dL (6.4-8.2); eGFR NON BLACK RACES 52 (>60)
--- NOTE | 2018-07-11 18:28 | RAD ---
HISTORY: Fever Study: AP portable chest Comparison: 03/08/2018 Findings: The lungs are clear. The heart size is normal. No acute bony abnormalities are identified. IMPRESSION: 1. No radiographic evidence of acute cardiopulmonary disease or significant change is noted when co mpared to the prior examination. Reported By:
[2018-07-11] MEDS: ZOFRAN INJ 4 MG VIAL IVP PRN (18:36)
[2018-07-11 18:50] VITALS: BMI 30.3
--- NOTE | 2018-07-11 19:02 | CT ---
CT abdomen and pelvis without contrast Indication: Abdominal pain. Comparison: No prior abdominal imaging currently available. The images of the lumbar spine from 12/20 reviewed Technique: Helical images through the abdomen and pelvis without contrast. Coronal and sagittal refor mats provided. Findings: Limited images through the lower chest shows few coronary artery calcifications without oth er acute abnormality. Review of bone windows shows spine degenerative change without destructive osse ous lesion Abdomen: The spleen, adrenal glands, pancreas, stomach and small bowel are normal. The colon is trent l. The appendix is absent. Vascular plaque is noted. Right kidney is normal. There is left kidney punctate 1-2 mm left lower pole renal stone on axial kaitlin ge 43. Pelvis: The urinary bladder contains gas. The rectum is normal. Uterus is absent. No adnexal region l esions seen. Impression: 1. Nonobstructing left lower pole renal stone 2. No acute abnormality otherwise. Scattered vascular calcifications, minimal spine degenerative lainez ge and other findings as above Reported By:
[2018-07-11] MEDS: NORCO 7.5/325 MG TAB PO PRN (19:54)
[2018-07-11] MEDS: SNACK - Diabetic Appropriate PO SCH (20:08)
[2018-07-11] MEDS: HumuLIN R SUBCUT PRN (20:48)
[2018-07-11 22:38] LABS: BILIRUBIN,URINE NEGATIVE (NEGATIVE); BLOOD/HEMOGLOBIN,URINE NEGATIVE (NEGATIVE); GLUCOSE, URINE 4+ (NEGATIVE); KETONES,URINE NEGATIVE (NEGATIVE); LEUKOCYTE ESTERASE ,URINE 1+ (NEGATIVE); NITRITES,URINE POSITIVE (NEGATIVE); PROTEIN,URINE NEGATIVE (NEGATIVE); UROBILINOGEN,URINE NORMAL (NORMAL)
[2018-07-11 22:45] LABS: APPEARANCE,URINE SLIGHTLY HAZY (CLEAR); BACTERIA,URINE 3+ /HPF (NEGATIVE); COLOR,URINE YELLOW (YELLOW); RBC,URINE NONE SEEN /HPF (NONE SEEN); SQUAMOUS EPITHELIAL CELL,UR RARE /HPF (NEGATIVE)
[2018-07-12] MEDS: ZOFRAN INJ 4 MG VIAL IVP PRN ×3 (00:38→18:05)
[2018-07-12] MEDS: NORCO 7.5/325 MG TAB PO PRN ×4 (00:38→23:25)
[2018-07-12] MEDS: DUONEB 0.5 MG/3 MG NEB PRN ×2 (01:08→12:15)
[2018-07-12] MEDS: HumuLIN R SUBCUT PRN ×4 (05:51→20:35)
[2018-07-12 06:03] LABS: BASOPHILS % (AUTO) 0.8 % (0.2-1.0); EOSINOPHILS # (AUTO) 0.3 x10^3/uL (0.0-0.2); EOSINOPHILS % (AUTO) 4.3 % (0.9-2.9); HEMATOCRIT 29.3 % (36.0-47.0); LYMPHOCYTES # (AUTO) 2.5 X10^3/uL (1.3-2.9); LYMPHOCYTES % (AUTO) 41.1 % (21.0-51.0); MEAN CORPUSCULAR HGB CONC 34.1 g/dL (33.0-35.0); MEAN CORPUSCULAR VOLUME 85.2 fL (80.0-100.0); MEAN PLATELET VOLUME 8.5 fL (7.4-11.0); MONOCYTES # (AUTO) 0.5 x10^3/uL (0.3-0.8); MONOCYTES % (AUTO) 7.6 % (0.0-13.0); NEUTROPHILS # (AUTO) 2.8 x10^3/uL (2.2-4.8); NEUTROPHILS % (AUTO) 46.2 % (42.0-75.0); PLATELET COUNT 205 X10^3/uL (150.0-450.0); RED BLOOD COUNT 3.44 X10^6/uL (3.5-5.4); RED CELL DISTRIBUTION WIDTH 16.3 % (11.6-16.5); WHITE BLOOD COUNT 6.1 X10^3/uL (3.6-10.0)
[2018-07-12 06:07] LABS: ALANINE AMINOTRANSFERASE 32 Units/L (12-78); ALBUMIN 2.8 g/dL (3.4-5.0); ALKALINE PHOSPHATASE 98 Units/L (46-116); ASPARTATE AMINO TRANSFERASE 27 Units/L (15-37); BLOOD UREA NITROGEN 20 mg/dL (7-18); CALCIUM 8.3 mg/dL (8.5-10.1); CARBON DIOXIDE 29.7 mmol/L (21-32); CHLORIDE 101 mmol/L (98-107); COR CA(FOR HYPOALB) 9.3 mg/dL (8.5-10.1); COR NA(FOR HYPERGLY) 142 mmol/L (136-145); CREATININE 1.03 mg/dL (0.55-1.02); SODIUM 138 mmol/L (136-145); TOTAL PROTEIN 6.8 g/dL (6.4-8.2); eGFR NON BLACK RACES 59 (>60)
[2018-07-12] MEDS: NS 1000 ML 1,000 ML IV SCH (06:39)
[2018-07-12] MEDS ORDERED: PATIENT'S HOME MEDICATION (Diltiazem Hcl [Diltiazem Hcl] 180 MG) PO SCH (09:00)
[2018-07-12] MEDS: CIPRO IV 400 MG PREMIX* 400 MG/200 ML IV.SOLN. IV SCH ×2 (09:27→20:25)
[2018-07-12] MEDS: LIPITOR TAB 40 MG PO SCH (10:05)
[2018-07-12] MEDS: ASPIRIN PO SCH (10:46)
[2018-07-12] MEDS: NEURONTIN TAB 600 MG PO SCH ×2 (10:46→20:26)
[2018-07-12] MEDS: LASIX PO SCH (10:46)
[2018-07-12] MEDS: K-DUR TAB 20 MEQ PO SCH ×2 (10:50→20:26)
[2018-07-12] MEDS: ZANTAC PO SCH ×2 (10:52→20:26)
[2018-07-12] MEDS: FLONASE NASAL SPRAY ENOSTRIL SCH (10:53)
[2018-07-12] MEDS: LANOXIN PO SCH (10:54)
[2018-07-12] MEDS: PLAVIX PO SCH (10:54)
[2018-07-12] MEDS: CARDIZEM CD 180 MG PO SCH (11:03)
[2018-07-12] MEDS: LOVENOX INJ 40 MG SYR SC SCH (11:23)
--- NOTE | 2018-07-12 12:37 | PCM.PROG ---
Progress Note - Progress Note for Day of Date of Exam: 07/12/18 - Subjective Subjective: 57 wf admitted on 07/11 with weakness, UTI, hyperglycemia and diarrhea.Pt was started on iv cipro. pt ua +nitrites, uc pending. pt cbc cmp stable, reviewed results with pt. pt reports continued elevated glucose, resovled nausea. pt asking to advance diet. plan to continue iv hydration, repeat am labs, blood sugar control - Past Medical Family Social History Past Med/Fam/Surg Hx: No changes since H&P Allergies: Allergies dicyclomine [From Bentyl] Allergy (Verified 03/29/18 20:23) ketorolac [From Toradol] Allergy (Verified 03/29/18 20:23) metoclopramide [From Reglan] Allergy (Verified 03/29/18 20:23) nalbuphine [From Nubain] Allergy (Verified 03/29/18 20:23) prochlorperazine [From Compazine] Allergy (Verified 03/29/18 20:23) - Review of Systems ROS: No change since H&P - Vital Signs and I&O's Vital Signs: Temperature 98.3 F Pulse Rate [Left Radial] 71 Pulse Rate 74 Respiratory Rate 17 Blood Pressure [Right Arm] 125/59 Blood Pressure [Left Arm] 127/75 Blood Pressure 135/58 O2 Sat by Pulse Oximetry 98 Intake and Output: Intake & Output 07/10/18 07/11/18 07/12/18 07/13/18 11:59 11:59 11:59 11:59 Intake Total 2089 / 2089 Output Total 800 / 800 Balance 1289 / 1289 - Physical Exam Oriented: Normal Eyes: Normal Ear: Normal Nose: Normal Throat: Dry Respiratory: Diminished Cardiovascular: Normal, Edema (BILATERAL LE TRACE EDEMA) : Normal Auscultation: Bowel Sounds: Normal Tenderness: Normal Skin: Decreased Turgur Musculoskeletal: Back:Lumbar Psychiatric: Anxiety Mood Description: Anxious Affect: Anxious Speech Pattern: Clear, Appropriate - Laboratory and Diagnostics Result Diagrams: 07/12/18 05:37 07/12/18 05:37 Labs: Laboratory WBC 6.1 X10^3/uL (3.6-10.0) 07/12/18 05:37 RBC 3.44 X10^6/uL (3.5-5.4) L 07/12/18 05:37 Hgb 10.0 g/dL (12.0-16.0) L 07/12/18 05:37 Hct 29.3 % (36.0-47.0) L 07/12/18 05:37 MCV 85.2 fL (80.0-100.0) 07/12/18 05:37 MCH 29.0 pg (27.0-34.0) 07/12/18 05:37 MCHC 34.1 g/dL (33.0-35.0) 07/12/18 05:37 RDW 16.3 % (11.6-16.5) 07/12/18 05:37 Plt Count 205 X10^3/uL (150.0-450.0) 07/12/18 05:37 MPV 8.5 fL (7.4-11.0) 07/12/18 05:37 Neut % (Auto) 46.2 % (42.0-75.0) 07/12/18 05:37 Lymph % (Auto) 41.1 % (21.0-51.0) 07/12/18 05:37 [place] % (Auto) 7.6 % (0.0-13.0) 07/12/18 05:37 Eos % (Auto) 4.3 % (0.9-2.9) H 07/12/18 05:37 Baso % (Auto) 0.8 % (0.2-1.0) 07/12/18 05:37 Neut # (Auto) 2.8 x10^3/uL (2.2-4.8) 07/12/18 05:37 Lymph # (Auto) 2.5 X10^3/uL (1.3-2.9) 07/12/18 05:37 [place] # (Auto) 0.5 x10^3/uL (0.3-0.8) 07/12/18 05:37 Eos # (Auto) 0.3 x10^3/uL (0.0-0.2) H 07/12/18 05:37 Baso # (Auto) 0.0 X10^3/uL (0.0-0.1) 07/12/18 05:37 Absolute Nucleated RBC 0.0 /100WBC 07/12/18 05:37 Sodium 138 mmol/L (136-145) 07/12/18 05:37 Corrected Sodium 142 mmol/L (136-145) 07/12/18 05:37 Potassium 4.4 mmol/L (3.5-5.1) 07/12/18 05:37 Chloride 101 mmol/L (98-107) 07/12/18 05:37 Carbon Dioxide 29.7 mmol/L (21-32) 07/12/18 05:37 BUN 20 mg/dL (7-18) H 07/12/18 05:37 Creatinine 1.03 mg/dL (0.55-1.02) H 07/12/18 05:37 Est GFR (MDRD) Af Amer > 60 (>60) 07/12/18 05:37 Est GFR (MDRD) Non-Af 59 (>60) 07/12/18 05:37 Glucose 275 mg/dL (65-99) H 07/12/18 05:37 POC Glucose (mg/dL) 338 mg/dL (65-99) H 07/11/18 20:43 Calcium 8.3 mg/dL (8.5-10.1) L 07/12/18 05:37 Corrected Calcium 9.3 mg/dL (8.5-10.1) 07/12/18 05:37 Total Bilirubin 0.30 mg/dL (0.2-1.0) 07/12/18 05:37 AST 27 Units/L (15-37) 07/12/18 05:37 ALT 32 Units/L (12-78) 07/12/18 05:37 Alkaline Phosphatase 98 Units/L (46-116) 07/12/18 05:37 Total Protein 6.8 g/dL (6.4-8.2) 07/12/18 05:37 Albumin 2.8 g/dL (3.4-5.0) L 07/12/18 05:37 Globulin 4.0 g/dL (2.5-4.5) 07/12/18 05:37 Albumin/Globulin Ratio 0.7 Ratio (1.1-2.1) L 07/12/18 05:37 Specimen Type Clean catch urine 07/11/18 22:23 Urine Color Yellow (YELLOW) 07/11/18 22:23 Urine Appearance Slightly hazy (CLEAR) 07/11/18: Urine pH 6.0 (5.0 - 8.0) 07/11/18: Ur Specific [place] 1.015 (1.000-1.030) 07/11/18: Urine Protein Negative (NEGATIVE) 07/11/18: Urine Glucose (UA) 4+ (NEGATIVE) 07/11/18: Urine Ketones Negative (NEGATIVE) 07/11/18: Urine Occult Blood Negative (NEGATIVE) 07/11/18: Urine Nitrite Positive (NEGATIVE) 07/11/18: Urine Bilirubin Negative (NEGATIVE) 07/11/18: Urine Acetone Negative (NEGATIVE) 07/11/18: Urine Urobilinogen Normal (NORMAL) 07/11/18 Ur Leukocyte Esterase 1+ (NEGATIVE) 07/11/18: Urine RBC None seen /HPF (NONE SEEN) 07/11/18: Urine WBC 5-10 /HPF (NONE SEEN) 07/11/18 Ur Squamous Epith Cells Rare /HPF (NEGATIVE) 07/11/18: Urine Bacteria 3+ /HPF (NEGATIVE) 07/11/18: Ur Culture Indicated? Yes/culture set up 07/11/18: - Plan (1) Hyperglycemia Status: Acute Plan: AM, CBC CMP. BC AND UA/UC, CXR ON ADMISSION. CT ABD PELVIS WITHOUT ACUTE FINDINGS, RESULTS REVIEWED WITH PT. CONNOR LUND, STOOL STUDIES. SSI,NAUSEA CONTROL, ADVANCE DIET. GENTLE HYDRATION (2) Diarrhea Status: Acute (3) UTI (urinary tract infection) Status: Acute (4) Fever Status: Acute (5) CHF (congestive heart failure) Status: Acute (6) GERD (gastroesophageal reflux disease) Status: Chronic (7) Diabetes mellitus type 1, uncontrolled Status: Chronic
[2018-07-12] MEDS: XOPENEX 1.25 MG/3 ML NEBULE NEB PRN ×2 (16:40→22:45)
[2018-07-12] MEDS: SNACK - Diabetic Appropriate PO SCH (20:25)
[2018-07-13] MEDS: NS 1000 ML 1,000 ML IV SCH ×3 (03:12→07:37)
[2018-07-13] MEDS: ZOFRAN INJ 4 MG VIAL IVP PRN (03:12)
[2018-07-13] MEDS: NORCO 7.5/325 MG TAB PO PRN (03:12)
[2018-07-13 05:40] LABS: BASOPHILS % (AUTO) 0.7 % (0.2-1.0); EOSINOPHILS # (AUTO) 0.2 x10^3/uL (0.0-0.2); EOSINOPHILS % (AUTO) 2.7 % (0.9-2.9); HEMATOCRIT 29.6 % (36.0-47.0); HEMOGLOBIN 10.1 g/dL (12.0-16.0); LYMPHOCYTES # (AUTO) 1.8 X10^3/uL (1.3-2.9); LYMPHOCYTES % (AUTO) 30.5 % (21.0-51.0); MEAN CORPUSCULAR HEMOGLOBIN 28.9 pg (27.0-34.0); MEAN CORPUSCULAR HGB CONC 34.1 g/dL (33.0-35.0); MEAN CORPUSCULAR VOLUME 84.7 fL (80.0-100.0); MEAN PLATELET VOLUME 8.5 fL (7.4-11.0); MONOCYTES # (AUTO) 0.5 x10^3/uL (0.3-0.8); MONOCYTES % (AUTO) 8.8 % (0.0-13.0); NEUTROPHILS # (AUTO) 3.5 x10^3/uL (2.2-4.8); NEUTROPHILS % (AUTO) 57.3 % (42.0-75.0); PLATELET COUNT 209 X10^3/uL (150.0-450.0); RED CELL DISTRIBUTION WIDTH 16.6 % (11.6-16.5)
[2018-07-13] MEDS: HumuLIN R SUBCUT PRN (05:41)
[2018-07-13 05:55] LABS: ALANINE AMINOTRANSFERASE 29 Units/L (12-78); ALBUMIN 2.9 g/dL (3.4-5.0); ALKALINE PHOSPHATASE 99 Units/L (46-116); ASPARTATE AMINO TRANSFERASE 16 Units/L (15-37); BLOOD UREA NITROGEN 20 mg/dL (7-18); CALCIUM 8.5 mg/dL (8.5-10.1); CARBON DIOXIDE 31.7 mmol/L (21-32); CHLORIDE 100 mmol/L (98-107); COR CA(FOR HYPOALB) 9.4 mg/dL (8.5-10.1); COR NA(FOR HYPERGLY) 143 mmol/L (136-145); CREATININE 1.17 mg/dL (0.55-1.02); SODIUM 137 mmol/L (136-145); TOTAL PROTEIN 7.1 g/dL (6.4-8.2); eGFR NON BLACK RACES 51 (>60)
[2018-07-13] MEDS: XOPENEX 1.25 MG/3 ML NEBULE NEB PRN (06:04)
[2018-07-13 08:12] VITALS: BP 162/84
[2018-07-13] MEDS: ASPIRIN PO SCH (09:06)
[2018-07-13] MEDS: LASIX PO SCH (09:07)
[2018-07-13] MEDS: CIPRO IV 400 MG PREMIX* 400 MG/200 ML IV.SOLN. IV SCH (09:07)
[2018-07-13] MEDS: LOVENOX INJ 40 MG SYR SC SCH (09:07)
[2018-07-13] MEDS: NEURONTIN TAB 600 MG PO SCH (09:07)
[2018-07-13] MEDS: FLONASE NASAL SPRAY ENOSTRIL SCH (09:07)
[2018-07-13] MEDS: PLAVIX PO SCH (09:07)
[2018-07-13] MEDS: CARDIZEM CD 180 MG PO SCH (09:07)
[2018-07-13] MEDS: LIPITOR TAB 40 MG PO SCH (09:07)
[2018-07-13] MEDS: ZANTAC PO SCH (09:07)
[2018-07-13] MEDS: LANOXIN PO SCH (09:08)
[2018-07-13] MEDS: K-DUR TAB 20 MEQ PO SCH (09:08)
== END 2018-07-13 09:00 | disposition home or self-care (01) ==
LOC: ICU
PROVIDERS: ADMIT Internal Medicine; ATTEND Internal Medicine
DX: R10.9 Unspecified abdominal pain; K21.9 Gastro-esophageal reflux disease without esophagitis; I10 Essential (primary) hypertension; R50.9 Fever, unspecified; E86.0 Dehydration; Z91.81 History of falling; R19.7 Diarrhea, unspecified; I95.9 Hypotension, unspecified; I50.9 Heart failure, unspecified; R26.81 Unsteadiness on feet; N39.0 Urinary tract infection, site not specified; E11.65 Type 2 diabetes mellitus with hyperglycemia
CPT/HCPCS: 36415; 71010; 71045; 74176; 80053; 80162; 81001; 82009; 85025; 87040; 87086; 94640; 96372; 96374; A4222; G0378; J0744; J1650; J1815; J2405; J7030; J7620

== ENCOUNTER 2018-12-10 10:10 | Inpatient (IN) ==
[2018-12-10] MEDS ORDERED: CONSULT PHARMACY - GENTAMICIN XX SCH (12:00)
--- NOTE | 2018-12-10 12:07 | DR.H&P ---
H&P - History & Physical for Day of: H&P Date: 12/10/18 - Chief Complaint Chief Complaint: uti, lower "bladder pressure" - History of Present Illness History of Present Illness: 58 WF DIRECT ADMIT AFTER BEING SEEN IN ER ON 12/08/ WITH C/O 3 DAY HISTORY OF "SORENESS IN BLADDER". DESCRIBES PAIN IN LOWER ABDOMEN CONSTANT NAGGING ACHE RATED 7.PT C/O BURNING WHEN URINATING. PT HAS ALSO HAD LOW GRADE FEVER. PT HAD UA IN ER, STARTED ON PO ANTIBIOTICS, CULTURE +ECOLI WITH HX OF PTS DRUG ALLERGIES AND MULTI-DRUG RESISTANCE INFECTION, PT ADMITTED FOR TREATMENT OF UTI, R/O URO SEPSIS. - Past Medical History Past Medical History: [place], Coronary Artery Disease, Hypertension, Dementia, Anxiety, Asthma, Arthritis Additional Medical History: Fibromyalgia, Congestive heart failure - Past Surgical History Surgical History: Angioplasty/Stents, Cholecystectomy, Hysterectomy, Ortho Surgery - Family History Family Medical History: Diabetes Mellitus, Cancer, [place], Coronary Artery Disease, Hypertension - Social History Does patient currently use any type of tobacco product: No Have you used tobacco products in the last 12 months: No Type of Tobacco Use: None Does any household member use tobacco: No Alcohol Use: None Drug Use: None - Medications Home Medications: ceftriaxone [From Rocephin] Allergy (Verified 12/08/18 17:12) dicyclomine [From Bentyl] Allergy (Verified 03/29/18 20:23) ketorolac [From Toradol] Allergy (Verified 03/29/18 20:23) metoclopramide [From Reglan] Allergy (Verified 03/29/18 20:23) nalbuphine [From Nubain] Allergy (Verified 03/29/18 20:23) prochlorperazine [From Compazine] Allergy (Verified 03/29/18 20:23) - Review of Systems Constitutional: Fever, Chills, Malaise Eyes: No Symptoms Reported ENT: No Symptoms Reported Respiratory: Shortness of Breath Cardiovascular: No Symptoms Reported Gastrointestinal: Abdominal Pain Genitourinary: Frequency Musculoskeletal: Back Pain Skin: No Symptoms Reported Neurological: No Symptoms Reported - Physical Exam Vital Signs: Blood Pressure [Right Arm] 146/68 Blood Pressure [Left Arm] 127/75 Blood Pressure 146/68 Oriented: Normal Eyes: Normal Ear: Normal Nose: Normal Throat: Normal Respiratory: RLL Diminished, LLL Diminished Cardiovascular: Normal : Normal Auscultation: Bowel Sounds: Normal Palpation: Normal Tenderness: Normal, Suprapubic, Mild Skin: Normal Musculoskeletal: Back:Lumbar Mood Description: Calm Affect: Anxious Speech Pattern: Clear, Appropriate - Assessment/Plan (1) UTI (urinary tract infection) Status: Acute Plan: +ECOLI CULTURE, ADMIT BLOOD AND URINE CULTURE ON ADMISSION. WITH PHARMACY CONSULT FOR GENTAMICIN DOSING. CBC CMP ON ADMISSION, UA. SLIDING SCALE INSULIN, BS CONTROL. VERIFY HOME MEDICATION, STRICT I & OS (2) Fever Status: Acute (3) Diabetes Status: Acute (4) GERD (gastroesophageal reflux disease) Status: Chronic (5) History of coronary artery disease Status: Chronic (6) Diabetic neuropathy Status: Chronic (7) Anxiety disorder Qualifiers: Anxiety disorder type: unspecified anxiety disorder Qualified Code(s): F41.9 - Anxiety disorder, unspecified Status: Chronic - Allergies Allergies/Adverse Reactions: Allergies Allergy/AdvReac Type Severity Reaction Status Date / Time ceftriaxone [From Rocephin] Allergy Verified 12/08/18 17:12 dicyclomine [From Bentyl] Allergy Verified 03/29/18 20:23 ketorolac [From Toradol] Allergy Verified 03/29/18 20:23 metoclopramide [From Reglan] Allergy Verified 03/29/18 20:23 nalbuphine [From Nubain] Allergy Verified 03/29/18 20:23 prochlorperazine Allergy Verified 03/29/18 20:23 [From Compazine]
[2018-12-10 13:44] LABS: BASOPHILS # (AUTO) 0.1 X10^3/uL (0.0-0.1); EOSINOPHILS # (AUTO) 0.5 x10^3/uL (0.0-0.2); EOSINOPHILS % (AUTO) 6.6 % (0.9-2.9); HEMATOCRIT 34.6 % (36.0-47.0); HEMOGLOBIN 11.6 g/dL (12.0-16.0); LYMPHOCYTES # (AUTO) 1.5 X10^3/uL (1.3-2.9); LYMPHOCYTES % (AUTO) 21.3 % (21.0-51.0); MEAN CORPUSCULAR HEMOGLOBIN 25.9 pg (27.0-34.0); MEAN CORPUSCULAR HGB CONC 33.4 g/dL (33.0-35.0); MEAN CORPUSCULAR VOLUME 77.5 fL (80.0-100.0); MEAN PLATELET VOLUME 8.4 fL (7.4-11.0); MONOCYTES # (AUTO) 0.5 x10^3/uL (0.3-0.8); MONOCYTES % (AUTO) 6.9 % (0.0-13.0); NEUTROPHILS # (AUTO) 4.5 x10^3/uL (2.2-4.8); NEUTROPHILS % (AUTO) 64.2 % (42.0-75.0); PLATELET COUNT 264 X10^3/uL (150.0-450.0); RED BLOOD COUNT 4.47 X10^6/uL (3.5-5.4); RED CELL DISTRIBUTION WIDTH 17.5 % (11.6-16.5)
[2018-12-10 14:03] LABS: ALANINE AMINOTRANSFERASE 34 Units/L (12-78); ALBUMIN 3.6 g/dL (3.4-5.0); ALKALINE PHOSPHATASE 121 Units/L (46-116); ASPARTATE AMINO TRANSFERASE 23 Units/L (15-37); BLOOD UREA NITROGEN 16 mg/dL (7-18); CALCIUM 9.2 mg/dL (8.5-10.1); CHLORIDE 103 mmol/L (98-107); COR NA(FOR HYPERGLY) 143 mmol/L (136-145); CREATININE 1.08 mg/dL (0.55-1.02); SODIUM 139 mmol/L (136-145); TOTAL PROTEIN 8.2 g/dL (6.4-8.2); eGFR NON BLACK RACES 55 (>60)
[2018-12-10] MEDS: ZOFRAN TAB 4 MG SL PRN ×2 (14:06→20:58)
[2018-12-10] MEDS: NS 1000 ML 1,000 ML IV SCH (14:06)
[2018-12-10] MEDS ORDERED: NS 1000 ML 1,000 ML ONE (14:13)
[2018-12-10] MEDS ORDERED: ZOFRAN INJ 4 MG VIAL ONE (14:14)
[2018-12-10 14:15] LABS: PLATELET MORPHOLOGY COMMENT NORMAL (NORMAL)
[2018-12-10 14:16] LABS: ANISOCYTOSIS SLIGHT; HYPOCHROMASIA SLIGHT; MICROCYTOSIS SLIGHT
[2018-12-10 14:35] VITALS: BMI 27.2
[2018-12-10] MEDS ORDERED: PROVENTIL NEB TX 0.083% 2.5MG/ 3ML NEB PRN (14:44)
[2018-12-10] MEDS: GENTAMICIN INJ 100 MG in NS 100 ML IV 100 ML IV SCH ×2 (15:30→21:00)
[2018-12-10] MEDS: HumuLIN R SUBCUT PRN ×2 (17:07→20:57)
[2018-12-10] MEDS: NORCO 5/325 MG TAB PO PRN ×2 (17:08→22:39)
[2018-12-10 18:26] LABS: APPEARANCE,URINE CLOUDY (CLEAR); COLOR,URINE ORANGE (YELLOW); PROTEIN,URINE 2+ (NEGATIVE)
[2018-12-10 18:27] LABS: BILIRUBIN,URINE NEGATIVE (NEGATIVE); BLOOD/HEMOGLOBIN,URINE 1+ (NEGATIVE); GLUCOSE, URINE 4+ (NEGATIVE); KETONES,URINE NEGATIVE (NEGATIVE); LEUKOCYTE ESTERASE ,URINE 2+ (NEGATIVE); NITRITES,URINE POSITIVE (NEGATIVE); UROBILINOGEN,URINE 1+ (NORMAL)
[2018-12-10 18:34] LABS: BACTERIA,URINE 4+ /HPF (NEGATIVE); SQUAMOUS EPITHELIAL CELL,UR FEW /HPF (NEGATIVE)
[2018-12-10] MEDS ORDERED: SNACK - Diabetic Appropriate PO SCH (20:00)
[2018-12-11] MEDS: NS 1000 ML 1,000 ML IV SCH ×2 (02:32→15:51)
[2018-12-11] MEDS: NORCO 5/325 MG TAB PO PRN ×4 (03:56→22:28)
[2018-12-11] MEDS: ZOFRAN TAB 4 MG SL PRN ×3 (03:56→22:29)
[2018-12-11] MEDS: GENTAMICIN INJ 100 MG in NS 100 ML IV 100 ML IV SCH ×4 (05:20→21:45)
[2018-12-11 05:34] LABS: BASOPHILS # (AUTO) 0.1 X10^3/uL (0.0-0.1); BASOPHILS % (AUTO) 0.7 % (0.2-1.0); EOSINOPHILS # (AUTO) 0.5 x10^3/uL (0.0-0.2); HEMATOCRIT 32.6 % (36.0-47.0); HEMOGLOBIN 10.7 g/dL (12.0-16.0); LYMPHOCYTES % (AUTO) 41.1 % (21.0-51.0); MEAN CORPUSCULAR HEMOGLOBIN 25.8 pg (27.0-34.0); MEAN CORPUSCULAR HGB CONC 32.9 g/dL (33.0-35.0); MEAN CORPUSCULAR VOLUME 78.4 fL (80.0-100.0); MEAN PLATELET VOLUME 8.8 fL (7.4-11.0); MONOCYTES # (AUTO) 0.5 x10^3/uL (0.3-0.8); MONOCYTES % (AUTO) 6.2 % (0.0-13.0); NEUTROPHILS # (AUTO) 3.3 x10^3/uL (2.2-4.8); PLATELET COUNT 246 X10^3/uL (150.0-450.0); RED BLOOD COUNT 4.15 X10^6/uL (3.5-5.4); RED CELL DISTRIBUTION WIDTH 17.2 % (11.6-16.5); WHITE BLOOD COUNT 7.3 X10^3/uL (3.6-10.0)
[2018-12-11 05:48] LABS: ALANINE AMINOTRANSFERASE 30 Units/L (12-78); ALBUMIN 3.1 g/dL (3.4-5.0); ALKALINE PHOSPHATASE 110 Units/L (46-116); ASPARTATE AMINO TRANSFERASE 22 Units/L (15-37); BLOOD UREA NITROGEN 15 mg/dL (7-18); CALCIUM 8.9 mg/dL (8.5-10.1); CARBON DIOXIDE 27.4 mmol/L (21-32); CHLORIDE 105 mmol/L (98-107); COR CA(FOR HYPOALB) 9.6 mg/dL (8.5-10.1); COR NA(FOR HYPERGLY) 142 mmol/L (136-145); CREATININE 1.05 mg/dL (0.55-1.02); SODIUM 140 mmol/L (136-145); TOTAL PROTEIN 7.5 g/dL (6.4-8.2); eGFR NON BLACK RACES 57 (>60)
[2018-12-11 05:59] LABS: ANISOCYTOSIS SLIGHT; HYPOCHROMASIA SLIGHT; PLATELET MORPHOLOGY COMMENT NORMAL (NORMAL)
[2018-12-11] MEDS: NEURONTIN CAP 300 MG PO SCH ×2 (09:54→20:43)
--- NOTE | 2018-12-11 11:49 | RAD ---
History: Abdominal pain Study: Acute abdominal series Comparison: CT abdomen and pelvis dated July 11, 2018 Findings: The lungs are clear and the heart size is normal. The descending aorta is tortuous. There is mild levoscoliosis of the lower thoracic spine. The gallbladder surgically absent. There is large amount of fecal material in the colon. There is no abnormal gaseous distention of bowel. There is minimal dextroscoliosis of the lumbar spine. No abnormal calcification is demonstrated. Impression: Graph 1. Probable constipation 2. Mild thoracolumbar scoliosis Reported By:
[2018-12-11] MEDS: HumuLIN R SUBCUT PRN ×3 (12:02→21:43)
[2018-12-11] MEDS ORDERED: PHARMACY COMMENT IV NR (13:30)
[2018-12-11] MEDS ORDERED: LASIX PO PRN (14:01)
[2018-12-11 14:06] LABS: CREATININE 1.16 mg/dL (0.55-1.02); GENTAMICIN,TROUGH 1.4 ug/mL (0-1.9)
[2018-12-11] MEDS ORDERED: ACTOS PO SCH (14:15)
[2018-12-11] MEDS ORDERED: ACTOS PO ONE (15:38)
[2018-12-11] MEDS ORDERED: NITRODUR PATCH 0.4 MG/HR TD ONE (15:39)
[2018-12-11] MEDS ORDERED: K-DUR TAB 20 MEQ PO PRN (15:43)
[2018-12-11] MEDS: LIPITOR TAB 40 MG PO SCH (15:52)
[2018-12-11] MEDS: ASPIRIN PO SCH (15:53)
[2018-12-11] MEDS: CARDIZEM CD 180 MG PO SCH (15:53)
[2018-12-11] MEDS: TOPAMAX PO SCH (15:53)
[2018-12-11] MEDS: COZAAR PO SCH (15:53)
[2018-12-11] MEDS: NITRODUR PATCH 0.4 MG/HR TD SCH (15:54)
[2018-12-11] MEDS: PLAVIX PO SCH (15:56)
[2018-12-11] MEDS: LANOXIN PO SCH ×2 (15:57→15:58)
[2018-12-11] MEDS: FLONASE NASAL SPRAY ENOSTRIL SCH (17:13)
[2018-12-11] MEDS: SNACK - Diabetic Appropriate PO SCH (20:39)
[2018-12-11] MEDS: GLUCOTROL PO SCH (20:42)
[2018-12-11] MEDS: ZOLOFT PO SCH (20:43)
[2018-12-11] MEDS: ZANTAC PO SCH (20:43)
[2018-12-11] MEDS: TOUJEO SOLOSTAR PEN SC SCH (21:02)
[2018-12-12] MEDS: ZOFRAN TAB 4 MG SL PRN ×3 (04:56→20:18)
[2018-12-12 05:29] LABS: BASOPHILS # (AUTO) 0.1 X10^3/uL (0.0-0.1); EOSINOPHILS # (AUTO) 0.5 x10^3/uL (0.0-0.2); EOSINOPHILS % (AUTO) 6.2 % (0.9-2.9); HEMATOCRIT 31.9 % (36.0-47.0); HEMOGLOBIN 10.4 g/dL (12.0-16.0); LYMPHOCYTES # (AUTO) 2.9 X10^3/uL (1.3-2.9); LYMPHOCYTES % (AUTO) 37.2 % (21.0-51.0); MEAN CORPUSCULAR HEMOGLOBIN 25.9 pg (27.0-34.0); MEAN CORPUSCULAR HGB CONC 32.7 g/dL (33.0-35.0); MEAN CORPUSCULAR VOLUME 79.4 fL (80.0-100.0); MEAN PLATELET VOLUME 8.8 fL (7.4-11.0); MONOCYTES # (AUTO) 0.6 x10^3/uL (0.3-0.8); MONOCYTES % (AUTO) 8.1 % (0.0-13.0); NEUTROPHILS # (AUTO) 3.7 x10^3/uL (2.2-4.8); NEUTROPHILS % (AUTO) 47.5 % (42.0-75.0); PLATELET COUNT 258 X10^3/uL (150.0-450.0); RED BLOOD COUNT 4.02 X10^6/uL (3.5-5.4); RED CELL DISTRIBUTION WIDTH 17.5 % (11.6-16.5); WHITE BLOOD COUNT 7.8 X10^3/uL (3.6-10.0)
[2018-12-12] MEDS: GENTAMICIN INJ 100 MG in NS 100 ML IV 100 ML IV SCH (05:35)
[2018-12-12 05:42] LABS: ALBUMIN 2.9 g/dL (3.4-5.0); CALCIUM 8.5 mg/dL (8.5-10.1); COR CA(FOR HYPOALB) 9.4 mg/dL (8.5-10.1); CREATININE 1.21 mg/dL (0.55-1.02); TOTAL PROTEIN 7.1 g/dL (6.4-8.2)
[2018-12-12] MEDS: NORCO 5/325 MG TAB PO PRN ×3 (05:44→20:20)
[2018-12-12] MEDS: NS 1000 ML 1,000 ML IV SCH ×3 (05:46→22:51)
[2018-12-12 06:13] LABS: ANISOCYTOSIS SLIGHT; HYPOCHROMASIA SLIGHT; PLATELET MORPHOLOGY COMMENT NORMAL (NORMAL)
[2018-12-12] MEDS: ZANTAC PO SCH ×2 (09:04→20:19)
[2018-12-12] MEDS: ASPIRIN PO SCH (09:04)
[2018-12-12] MEDS: CARDIZEM CD 180 MG PO SCH (09:12)
[2018-12-12] MEDS: LANOXIN PO SCH (09:13)
[2018-12-12] MEDS: FLONASE NASAL SPRAY ENOSTRIL SCH (09:13)
[2018-12-12] MEDS: COZAAR PO SCH (09:13)
[2018-12-12] MEDS: GLUCOTROL PO SCH ×2 (09:13→20:19)
[2018-12-12] MEDS: NITRODUR PATCH 0.4 MG/HR TD SCH (09:16)
[2018-12-12] MEDS: NEURONTIN CAP 300 MG PO SCH ×2 (09:16→20:20)
[2018-12-12] MEDS: LIPITOR TAB 40 MG PO SCH (09:16)
[2018-12-12] MEDS: PLAVIX PO SCH (09:17)
[2018-12-12] MEDS: TOPAMAX PO SCH (09:17)
[2018-12-12] MEDS: HumuLIN R SUBCUT PRN ×3 (11:51→21:02)
[2018-12-12 13:56] LABS: CREATINE KINASE 33 Units/L (26-192); CREATINE KINASE MB < 1.0 ng/mL (0-4.0); TROPONIN I < 0.02 ng/mL (0-1.5)
--- NOTE | 2018-12-12 13:56 | PCM.PROG ---
Progress Note - Progress Note for Day of Date of Exam: 12/11/18 - Subjective Subjective: 58 WF ADMITTED ON 12/10 WITH UTI URINE CULTURE + FOR ECOLI. PT CURRENTLY ON IV GENTAMICIN. PT WBC - Past Medical Family Social History Past Med/Fam/Surg Hx: No changes since H&P Allergies: Allergies ceftriaxone [From Rocephin] Allergy (Verified 12/08/18 17:12) dicyclomine [From Bentyl] Allergy (Verified 03/29/18 20:23) ketorolac [From Toradol] Allergy (Verified 03/29/18 20:23) metoclopramide [From Reglan] Allergy (Verified 03/29/18 20:23) nalbuphine [From Nubain] Allergy (Verified 03/29/18 20:23) prochlorperazine [From Compazine] Allergy (Verified 03/29/18 20:23) - Review of Systems ROS: No change since H&P - Vital Signs and I&O's Vital Signs: Temperature 98.3 F Pulse Rate [Right Brachial] 68 Pulse Rate 74 Respiratory Rate 20 Blood Pressure [Right Arm] 160/75 Blood Pressure [Left Arm] 127/75 Blood Pressure 146/68 O2 Sat by Pulse Oximetry 97 Intake and Output: Intake & Output 12/10/18 12/11/18 12/12/18 12/13/18 11:59 11:59 11:59 11:59 Intake Total 2088 / 2088 2337 / 2337 Output Total 1200 / 1200 4000 / 4000 Balance 888 / 888 -1663 / -1663 - Physical Exam Oriented: Normal Eyes: Normal Ear: Normal Nose: Normal Throat: Normal Respiratory: Diminished Cardiovascular: Normal : Normal Auscultation: Bowel Sounds: Normal Tenderness: Normal, Suprapubic, Mild Skin: Normal Musculoskeletal: Back:Lumbar Mood Description: Calm Affect: Anxious Speech Pattern: Clear, Appropriate - Laboratory and Diagnostics Result Diagrams: 12/12/18 04:30 12/12/18 04:30 Labs: 12/10/18 13:28 Blood Blood Culture - Preliminary 12/10/18 13:34 Blood Blood Culture - Preliminary 12/10/18 18:02 Urine,Clean Catch Urine Culture - Final Escherichia Coli Laboratory WBC 7.8 X10^3/uL (3.6-10.0) 12/12/18 04:30 RBC 4.02 X10^6/uL (3.5-5.4) 12/12/18 04:30 Hgb 10.4 g/dL (12.0-16.0) L 12/12/18 04:30 Hct 31.9 % (36.0-47.0) L 12/12/18 04:30 MCV 79.4 fL (80.0-100.0) L 12/12/18 04:30 MCH 25.9 pg (27.0-34.0) L 12/12/18 04:30 MCHC 32.7 g/dL (33.0-35.0) L 12/12/18 04:30 RDW 17.5 % (11.6-16.5) H 12/12/18 04:30 Plt Count 258 X10^3/uL (150.0-450.0) 12/12/18 04:30 Plt Count Comment Adequate (ADEQUATE) 12/12/18 04:30 MPV 8.8 fL (7.4-11.0) 12/12/18 04:30 Neut % (Auto) 47.5 % (42.0-75.0) 12/12/18 04:30 Lymph % (Auto) 37.2 % (21.0-51.0) 12/12/18 04:30 [place] % (Auto) 8.1 % (0.0-13.0) 12/12/18 04:30 Eos % (Auto) 6.2 % (0.9-2.9) H 12/12/18 04:30 Baso % (Auto) 1.0 % (0.2-1.0) 12/12/18 04:30 Neut # (Auto) 3.7 x10^3/uL (2.2-4.8) 12/12/18 04:30 Lymph # (Auto) 2.9 X10^3/uL (1.3-2.9) 12/12/18 04:30 [place] # (Auto) 0.6 x10^3/uL (0.3-0.8) 12/12/18 04:30 Eos # (Auto) 0.5 x10^3/uL (0.0-0.2) H 12/12/18 04:30 Baso # (Auto) 0.1 X10^3/uL (0.0-0.1) 12/12/18 04:30 Absolute Nucleated RBC 0.1 /100WBC 12/12/18 04:30 Total Counted 100 12/12/18 04:30 Neutrophils % (Manual) 50 % (39-76) 12/12/18 04:30 Lymphocytes % (Manual) 33 % (13-43) 12/12/18 04:30 Monocytes % (Manual) 5 % (4-9) 12/12/18 04:30 Eosinophils % (Manual) 12 % (0-6) H 12/12/18 04:30 Plt Morphology Comment Normal (NORMAL) 12/12/18 04:30 RBC Morphology Abnormal (NORMAL) A 12/12/18 04:30 Hypochromasia Slight A 12/12/18 04:30 Anisocytosis Slight A 12/12/18 04:30 Microcytosis Slight A 12/10/18 13:28 Sodium 140 mmol/L (136-145) 12/12/18 04:30 Corrected Sodium 144 mmol/L (136-145) 12/12/18 04:30 Potassium 4.0 mmol/L (3.5-5.1) 12/12/18 04:30 Chloride 106 mmol/L (98-107) 12/12/18 04:30 Carbon Dioxide 27.0 mmol/L (21-32) 12/12/18 04:30 BUN 14 mg/dL (7-18) 12/12/18 04:30 Creatinine 1.21 mg/dL (0.55-1.02) H 12/12/18 04:30 Est GFR (MDRD) Af Amer 59 (>60) 12/12/18 04:30 Est GFR (MDRD) Non-Af 49 (>60) L 12/12/18 04:30 Glucose 287 mg/dL (65-99) H 12/12/18 04:30 Calcium 8.5 mg/dL (8.5-10.1) 12/12/18 04:30 Corrected Calcium 9.4 mg/dL (8.5-10.1) 12/12/18 04:30 Total Bilirubin 0.20 mg/dL (0.2-1.0) 12/12/18 04:30 AST 16 Units/L (15-37) 12/12/18 04:30 ALT 26 Units/L (12-78) 12/12/18 04:30 Alkaline Phosphatase 100 Units/L (46-116) 12/12/18 04:30 Total Protein 7.1 g/dL (6.4-8.2) 12/12/18 04:30 Albumin 2.9 g/dL (3.4-5.0) L 12/12/18 04:30 Globulin 4.2 g/dL (2.5-4.5) 12/12/18 04:30 Albumin/Globulin Ratio 0.7 Ratio (1.1-2.1) L 12/12/18 04:30 Specimen Type Clean catch urine 12/10/18 18:02 Urine Color [place] (YELLOW) 12/10/18 18:02 Urine Appearance Cloudy (CLEAR) 12/10/18 18:02 Urine pH 5.0 (5.0 - 8.0) 12/10/18 18:02 Ur Specific [place] 1.015 (1.000-1.030) 12/10/18 18:02 Urine Protein 2+ (NEGATIVE) 12/10/18 18:02 Urine Glucose (UA) 4+ (NEGATIVE) 12/10/18 18:02 Urine Ketones Negative (NEGATIVE) 12/10/18 18:02 Urine Occult Blood 1+ (NEGATIVE) 12/10/18 18:02 Urine Nitrite Positive (NEGATIVE) 12/10/18 18:02 Urine Bilirubin Negative (NEGATIVE) 12/10/18 18:02 Urine Urobilinogen 1+ (NORMAL) 12/10/18 18:02 Ur Leukocyte Esterase 2+ (NEGATIVE) 12/10/18 18:02 Urine RBC 3-5 /HPF (NONE SEEN) 12/10/18 18:02 Urine WBC 10-20 /HPF (NONE SEEN) 12/10/18 18:02 Ur Squamous Epith Cells Few /HPF (NEGATIVE) 12/10/18 18:02 Urine Bacteria 4+ /HPF (NEGATIVE) 12/10/18 18:02 Ur Culture Indicated? Yes/culture set up 12/10/18 18:02 Gentamicin Trough 1.4 ug/mL (0-1.9) 12/11/18 13:45 Digoxin 0.92 ng/mL (0.9-2) 12/12/18 04:30 - Plan (1) UTI (urinary tract infection) Status: Acute Plan: +ECOLI CULTURE, CURRENLTY ON GENTAMICIN. BLOOD AND URINE CULTURE ON ADMISSION WITH LAB REPORTING GROWTH IN ONE BC COLLECTED ON ADMISSION,REPEAT BC ORDERED. SLIDING SCALE INSULIN, BS CONTROL. VERIFY HOME MEDICATION, STRICT I & OS (2) Fever Status: Acute (3) Diabetes Status: Acute (4) GERD (gastroesophageal reflux disease) Status: Chronic (5) History of coronary artery disease Status: Chronic (6) Diabetic neuropathy Status: Chronic (7) Anxiety disorder Status: Chronic Qualifiers: Anxiety disorder type: unspecified anxiety disorder Qualified Code(s): F41.9 - Anxiety disorder, unspecified
--- NOTE | 2018-12-12 14:03 | PCM.PROG ---
Progress Note - Progress Note for Day of Date of Exam: 12/12/18 - Subjective Subjective: 58 WF ADMITTED ON 12/10 WITH UTI URINE CULTURE + FOR ECOLI. PT CURRENTLY ON IV GENTAMICIN. PT WBC 7.8, BUN 14 CREAT 1.21 THIS AM, PT IS AFEBRILE. REPEAT BLOOD CULTURES PENDING. PT CO LOWER ABDOMINAL PAIN AGAIN THIS AM, ABD SERIES ON 12/11 WITH CONSTIPATION. PT REPORTS ONE BM. PT ORDERED MIRALAX A ND ENCOURAGED ORAL HYDRATION AND AMBULATE. - Past Medical Family Social History Past Med/Fam/Surg Hx: No changes since H&P Allergies: Allergies ceftriaxone [From Rocephin] Allergy (Verified 12/08/18 17:12) dicyclomine [From Bentyl] Allergy (Verified 03/29/18 20:23) ketorolac [From Toradol] Allergy (Verified 03/29/18 20:23) metoclopramide [From Reglan] Allergy (Verified 03/29/18 20:23) nalbuphine [From Nubain] Allergy (Verified 03/29/18 20:23) prochlorperazine [From Compazine] Allergy (Verified 03/29/18 20:23) - Review of Systems ROS: No change since H&P - Vital Signs and I&O's Vital Signs: Temperature 98.3 F Pulse Rate [Right Brachial] 68 Pulse Rate 74 Respiratory Rate 20 Blood Pressure [Right Arm] 160/75 Blood Pressure [Left Arm] 127/75 Blood Pressure 146/68 O2 Sat by Pulse Oximetry 97 Intake and Output: Intake & Output 12/10/18 12/11/18 12/12/18 12/13/18 11:59 11:59 11:59 11:59 Intake Total 2088 / 2088 2337 / 2337 Output Total 1200 / 1200 4000 / 4000 Balance 888 / 888 -1663 / -1663 - Physical Exam Oriented: Normal Eyes: Normal Ear: Normal Nose: Normal Throat: Normal Respiratory: Diminished Cardiovascular: Normal : Normal Auscultation: Bowel Sounds: Normal Tenderness: Normal, Suprapubic, Mild Skin: Normal Musculoskeletal: Back:Lumbar Mood Description: Calm Affect: Anxious Speech Pattern: Clear, Appropriate - Laboratory and Diagnostics Result Diagrams: 12/12/18 04:30 12/12/18 04:30 Labs: 12/10/18 13:28 Blood Blood Culture - Preliminary 12/10/18 13:34 Blood Blood Culture - Preliminary 12/10/18 18:02 Urine,Clean Catch Urine Culture - Final Escherichia Coli Laboratory WBC 7.8 X10^3/uL (3.6-10.0) 12/12/18 04:30 RBC 4.02 X10^6/uL (3.5-5.4) 12/12/18 04:30 Hgb 10.4 g/dL (12.0-16.0) L 12/12/18 04:30 Hct 31.9 % (36.0-47.0) L 12/12/18 04:30 MCV 79.4 fL (80.0-100.0) L 12/12/18 04:30 MCH 25.9 pg (27.0-34.0) L 12/12/18 04:30 MCHC 32.7 g/dL (33.0-35.0) L 12/12/18 04:30 RDW 17.5 % (11.6-16.5) H 12/12/18 04:30 Plt Count 258 X10^3/uL (150.0-450.0) 12/12/18 04:30 Plt Count Comment Adequate (ADEQUATE) 12/12/18 04:30 MPV 8.8 fL (7.4-11.0) 12/12/18 04:30 Neut % (Auto) 47.5 % (42.0-75.0) 12/12/18 04:30 Lymph % (Auto) 37.2 % (21.0-51.0) 12/12/18 04:30 [place] % (Auto) 8.1 % (0.0-13.0) 12/12/18 04:30 Eos % (Auto) 6.2 % (0.9-2.9) H 12/12/18 04:30 Baso % (Auto) 1.0 % (0.2-1.0) 12/12/18 04:30 Neut # (Auto) 3.7 x10^3/uL (2.2-4.8) 12/12/18 04:30 Lymph # (Auto) 2.9 X10^3/uL (1.3-2.9) 12/12/18 04:30 [place] # (Auto) 0.6 x10^3/uL (0.3-0.8) 12/12/18 04:30 Eos # (Auto) 0.5 x10^3/uL (0.0-0.2) H 12/12/18 04:30 Baso # (Auto) 0.1 X10^3/uL (0.0-0.1) 12/12/18 04:30 Absolute Nucleated RBC 0.1 /100WBC 12/12/18 04:30 Total Counted 100 12/12/18 04:30 Neutrophils % (Manual) 50 % (39-76) 12/12/18 04:30 Lymphocytes % (Manual) 33 % (13-43) 12/12/18 04:30 Monocytes % (Manual) 5 % (4-9) 12/12/18 04:30 Eosinophils % (Manual) 12 % (0-6) H 12/12/18 04:30 Plt Morphology Comment Normal (NORMAL) 12/12/18 04:30 RBC Morphology Abnormal (NORMAL) A 12/12/18 04:30 Hypochromasia Slight A 12/12/18 04:30 Anisocytosis Slight A 12/12/18 04:30 Microcytosis Slight A 12/10/18 13:28 Sodium 140 mmol/L (136-145) 12/12/18 04:30 Corrected Sodium 144 mmol/L (136-145) 12/12/18 04:30 Potassium 4.0 mmol/L (3.5-5.1) 12/12/18 04:30 Chloride 106 mmol/L (98-107) 12/12/18 04:30 Carbon Dioxide 27.0 mmol/L (21-32) 12/12/18 04:30 BUN 14 mg/dL (7-18) 12/12/18 04:30 Creatinine 1.21 mg/dL (0.55-1.02) H 12/12/18 04:30 Est GFR (MDRD) Af Amer 59 (>60) 12/12/18 04:30 Est GFR (MDRD) Non-Af 49 (>60) L 12/12/18 04:30 Glucose 287 mg/dL (65-99) H 12/12/18 04:30 Calcium 8.5 mg/dL (8.5-10.1) 12/12/18 04:30 Corrected Calcium 9.4 mg/dL (8.5-10.1) 12/12/18 04:30 Total Bilirubin 0.20 mg/dL (0.2-1.0) 12/12/18 04:30 AST 16 Units/L (15-37) 12/12/18 04:30 ALT 26 Units/L (12-78) 12/12/18 04:30 Alkaline Phosphatase 100 Units/L (46-116) 12/12/18 04:30 Total Protein 7.1 g/dL (6.4-8.2) 12/12/18 04:30 Albumin 2.9 g/dL (3.4-5.0) L 12/12/18 04:30 Globulin 4.2 g/dL (2.5-4.5) 12/12/18 04:30 Albumin/Globulin Ratio 0.7 Ratio (1.1-2.1) L 12/12/18 04:30 Specimen Type Clean catch urine 12/10/18 18:02 Urine Color [place] (YELLOW) 12/10/18 18:02 Urine Appearance Cloudy (CLEAR) 12/10/18 18:02 Urine pH 5.0 (5.0 - 8.0) 12/10/18 18:02 Ur Specific [place] 1.015 (1.000-1.030) 12/10/18 18:02 Urine Protein 2+ (NEGATIVE) 12/10/18 18:02 Urine Glucose (UA) 4+ (NEGATIVE) 12/10/18 18:02 Urine Ketones Negative (NEGATIVE) 12/10/18 18:02 Urine Occult Blood 1+ (NEGATIVE) 12/10/18 18:02 Urine Nitrite Positive (NEGATIVE) 12/10/18 18:02 Urine Bilirubin Negative (NEGATIVE) 12/10/18 18:02 Urine Urobilinogen 1+ (NORMAL) 12/10/18 18:02 Ur Leukocyte Esterase 2+ (NEGATIVE) 12/10/18 18:02 Urine RBC 3-5 /HPF (NONE SEEN) 12/10/18 18:02 Urine WBC 10-20 /HPF (NONE SEEN) 12/10/18 18:02 Ur Squamous Epith Cells Few /HPF (NEGATIVE) 12/10/18 18:02 Urine Bacteria 4+ /HPF (NEGATIVE) 12/10/18 18:02 Ur Culture Indicated? Yes/culture set up 12/10/18 18:02 Gentamicin Trough 1.4 ug/mL (0-1.9) 12/11/18 13:45 Digoxin 0.92 ng/mL (0.9-2) 12/12/18 04:30 - Plan (1) UTI (urinary tract infection) Status: Acute Plan: +ECOLI CULTURE, CURRENLTY ON GENTAMICIN. BLOOD AND URINE CULTURE ON ADMISSION WITH LAB REPORTING GROWTH IN ONE BC COLLECTED ON ADMISSION,REPEAT BC ORDERED. SLIDING SCALE INSULIN, BS CONTROL. STRICT I & OS, ENCOURAGE ORAL HYDRATION (2) Fever Status: Acute (3) Diabetes Status: Acute (4) GERD (gastroesophageal reflux disease) Status: Chronic (5) History of coronary artery disease Status: Chronic (6) Diabetic neuropathy Status: Chronic (7) Anxiety disorder Status: Chronic Qualifiers: Anxiety disorder type: unspecified anxiety disorder Qualified Code(s): F41.9 - Anxiety disorder, unspecified
[2018-12-12 14:16] LABS: CREATININE 1.2 mg/dL (0.55-1.02); GENTAMICIN,TROUGH 1.8 ug/mL (0-1.9)
[2018-12-12] MEDS: GENTAMICIN INJ 80 MG in NS 100 ML IV 100 ML IV SCH ×2 (14:42→22:50)
[2018-12-12] MEDS: ZOLOFT PO SCH (20:19)
[2018-12-12] MEDS: TOUJEO SOLOSTAR PEN SC SCH (20:24)
[2018-12-12] MEDS: MIRALAX POWDER (1 DOSE 17 G) PO SCH (20:25)
[2018-12-12] MEDS: SNACK - Diabetic Appropriate PO SCH (20:25)
[2018-12-12] MEDS: FLEXERIL TAB 10 MG PO PRN (20:34)
[2018-12-13 05:05] LABS: BASOPHILS # (AUTO) 0.1 X10^3/uL (0.0-0.1); BASOPHILS % (AUTO) 0.7 % (0.2-1.0); EOSINOPHILS # (AUTO) 0.5 x10^3/uL (0.0-0.2); EOSINOPHILS % (AUTO) 6.3 % (0.9-2.9); HEMATOCRIT 31.9 % (36.0-47.0); HEMOGLOBIN 10.7 g/dL (12.0-16.0); LYMPHOCYTES # (AUTO) 3.1 X10^3/uL (1.3-2.9); LYMPHOCYTES % (AUTO) 36.7 % (21.0-51.0); MEAN CORPUSCULAR HEMOGLOBIN 26.2 pg (27.0-34.0); MEAN CORPUSCULAR HGB CONC 33.4 g/dL (33.0-35.0); MEAN CORPUSCULAR VOLUME 78.5 fL (80.0-100.0); MEAN PLATELET VOLUME 8.4 fL (7.4-11.0); MONOCYTES # (AUTO) 0.7 x10^3/uL (0.3-0.8); MONOCYTES % (AUTO) 7.8 % (0.0-13.0); NEUTROPHILS # (AUTO) 4.2 x10^3/uL (2.2-4.8); NEUTROPHILS % (AUTO) 48.5 % (42.0-75.0); PLATELET COUNT 252 X10^3/uL (150.0-450.0); RED BLOOD COUNT 4.07 X10^6/uL (3.5-5.4); RED CELL DISTRIBUTION WIDTH 17.6 % (11.6-16.5); WHITE BLOOD COUNT 8.6 X10^3/uL (3.6-10.0)
[2018-12-13] MEDS: GENTAMICIN INJ 80 MG in NS 100 ML IV 100 ML IV SCH (05:20)
[2018-12-13 05:30] LABS: ALANINE AMINOTRANSFERASE 24 Units/L (12-78); ALBUMIN 3.1 g/dL (3.4-5.0); ALKALINE PHOSPHATASE 95 Units/L (46-116); ASPARTATE AMINO TRANSFERASE 13 Units/L (15-37); BLOOD UREA NITROGEN 15 mg/dL (7-18); CARBON DIOXIDE 29.7 mmol/L (21-32); CHLORIDE 108 mmol/L (98-107); CKMB % 3.9 % (<4); COR CA(FOR HYPOALB) 9.7 mg/dL (8.5-10.1); COR NA(FOR HYPERGLY) 142 mmol/L (136-145); CREATINE KINASE 26 Units/L (26-192); CREATINE KINASE MB < 1.0 ng/mL (0-4.0); CREATININE 1.04 mg/dL (0.55-1.02); SODIUM 142 mmol/L (136-145); TOTAL PROTEIN 7.3 g/dL (6.4-8.2); TROPONIN I < 0.02 ng/mL (0-1.5); eGFR NON BLACK RACES 58 (>60)
[2018-12-13] MEDS: NORCO 5/325 MG TAB PO PRN ×3 (06:01→21:49)
[2018-12-13] MEDS: NS 1000 ML 1,000 ML IV SCH ×2 (08:39→17:06)
[2018-12-13] MEDS: ASPIRIN PO SCH (09:31)
[2018-12-13] MEDS: TOPAMAX PO SCH (09:32)
[2018-12-13] MEDS: LIPITOR TAB 40 MG PO SCH (09:32)
[2018-12-13] MEDS: CARDIZEM CD 180 MG PO SCH (09:32)
[2018-12-13] MEDS: COZAAR PO SCH (09:32)
[2018-12-13] MEDS: PLAVIX PO SCH (09:32)
[2018-12-13] MEDS: LANOXIN PO SCH (09:32)
[2018-12-13] MEDS: GLUCOTROL PO SCH ×2 (09:33→20:26)
[2018-12-13] MEDS: NEURONTIN CAP 300 MG PO SCH ×2 (09:33→20:26)
[2018-12-13] MEDS: ZANTAC PO SCH ×2 (09:33→20:27)
[2018-12-13] MEDS: ZOFRAN TAB 4 MG SL PRN ×2 (09:33→19:26)
[2018-12-13] MEDS: NITRODUR PATCH 0.4 MG/HR TD SCH (09:34)
[2018-12-13] MEDS: FLONASE NASAL SPRAY ENOSTRIL SCH (09:34)
[2018-12-13] MEDS ORDERED: PHARMACY CONSULT - DOSE _____ XX SCH (10:00)
--- NOTE | 2018-12-13 10:28 | RAD ---
HISTORY: Congestive heart failure. Shortness of breath. Chest pain. Study: PA and lateral chest Comparison: 07/11/2018 Findings: The lungs are clear. The heart size is normal. Mild tortuosity of the aorta is noted. Mild thoracic spondylosis is noted. Minimal anterior wedging of a couple of thoracic vertebra noted, appearing chronic. IMPRESSION: 1. No radiographic evidence of acute cardiopulmonary disease or significant change is noted when compared to the prior examination. Reported By:
[2018-12-13] MEDS ORDERED: XYLOCAINE 1 % (PLAIN) ONE (11:49)
[2018-12-13] MEDS: HumuLIN R SUBCUT PRN ×2 (12:07→17:24)
--- NOTE | 2018-12-13 13:08 | RAD ---
Exam: Portable chest History: 58-year-old female with shortness of breath and chest pain this chest radiograph from 01/13/2018. Findings: Heart size and pulmonary vasculature are normal. Lungs are clear with no infiltrate or significant effusion on either side. Bony thorax is unremarkable as well. Incidental note is made of a left-sided PICC line extending to the superior vena cava. Impression: 1. No acute cardiopulmonary abnormality is seen. 2. Left-sided PICC line is identified with the tip extending to the superior vena cava Reported By:
[2018-12-13] MEDS: FLEXERIL TAB 10 MG PO PRN (19:27)
[2018-12-13] MEDS: MIRALAX POWDER (1 DOSE 17 G) PO SCH (20:51)
[2018-12-13] MEDS: SNACK - Diabetic Appropriate PO SCH (20:51)
[2018-12-13] MEDS: TOUJEO SOLOSTAR PEN SC SCH (20:52)
[2018-12-13] MEDS: ZOLOFT PO SCH (20:53)
[2018-12-14] MEDS: NS 1000 ML 1,000 ML IV SCH (04:27)
[2018-12-14 05:15] LABS: BASOPHILS # (AUTO) 0.1 X10^3/uL (0.0-0.1); BASOPHILS % (AUTO) 0.8 % (0.2-1.0); EOSINOPHILS # (AUTO) 0.6 x10^3/uL (0.0-0.2); EOSINOPHILS % (AUTO) 6.4 % (0.9-2.9); HEMATOCRIT 31.5 % (36.0-47.0); HEMOGLOBIN 10.5 g/dL (12.0-16.0); LYMPHOCYTES # (AUTO) 3.4 X10^3/uL (1.3-2.9); LYMPHOCYTES % (AUTO) 36.1 % (21.0-51.0); MEAN CORPUSCULAR HEMOGLOBIN 26.2 pg (27.0-34.0); MEAN CORPUSCULAR HGB CONC 33.3 g/dL (33.0-35.0); MEAN CORPUSCULAR VOLUME 78.6 fL (80.0-100.0); MEAN PLATELET VOLUME 8.4 fL (7.4-11.0); MONOCYTES # (AUTO) 0.7 x10^3/uL (0.3-0.8); MONOCYTES % (AUTO) 7.7 % (0.0-13.0); NEUTROPHILS # (AUTO) 4.6 x10^3/uL (2.2-4.8); PLATELET COUNT 267 X10^3/uL (150.0-450.0); RED BLOOD COUNT 4.01 X10^6/uL (3.5-5.4); RED CELL DISTRIBUTION WIDTH 17.2 % (11.6-16.5); WHITE BLOOD COUNT 9.4 X10^3/uL (3.6-10.0)
[2018-12-14 05:25] LABS: ALANINE AMINOTRANSFERASE 42 Units/L (12-78); ALKALINE PHOSPHATASE 103 Units/L (46-116); ASPARTATE AMINO TRANSFERASE 50 Units/L (15-37); BLOOD UREA NITROGEN 19 mg/dL (7-18); CALCIUM 8.9 mg/dL (8.5-10.1); CARBON DIOXIDE 29.4 mmol/L (21-32); CHLORIDE 104 mmol/L (98-107); COR CA(FOR HYPOALB) 9.7 mg/dL (8.5-10.1); COR NA(FOR HYPERGLY) 143 mmol/L (136-145); CREATININE 0.99 mg/dL (0.55-1.02); SODIUM 142 mmol/L (136-145); TOTAL PROTEIN 7.1 g/dL (6.4-8.2); eGFR NON BLACK RACES > 60 (>60)
[2018-12-14] MEDS: NORCO 5/325 MG TAB PO PRN (06:29)
[2018-12-14] MEDS: ASPIRIN PO SCH (08:19)
[2018-12-14] MEDS: CARDIZEM CD 180 MG PO SCH (08:19)
[2018-12-14] MEDS: COZAAR PO SCH (08:20)
[2018-12-14] MEDS: GLUCOTROL PO SCH (08:20)
[2018-12-14] MEDS: LIPITOR TAB 40 MG PO SCH (08:20)
[2018-12-14] MEDS: LANOXIN PO SCH (08:20)
[2018-12-14] MEDS: FLONASE NASAL SPRAY ENOSTRIL SCH (08:20)
[2018-12-14] MEDS: TOPAMAX PO SCH (08:21)
[2018-12-14] MEDS: NITRODUR PATCH 0.4 MG/HR TD SCH (08:21)
[2018-12-14] MEDS: NEURONTIN CAP 300 MG PO SCH (08:21)
[2018-12-14] MEDS: PLAVIX PO SCH (08:21)
[2018-12-14] MEDS: ZANTAC PO SCH (08:22)
[2018-12-14] MEDS: ZOFRAN TAB 4 MG SL PRN (08:27)
[2018-12-14] MEDS ORDERED: INVANZ INJ 1 GM VIAL 1 GM in NS 100 ML IV + SPIKE MINIBAG* 100 ML IV SCH (09:00)
[2018-12-14] MEDS: HumuLIN R SUBCUT PRN (11:47)
[2018-12-14 11:50] VITALS: BP 126/86
== END 2018-12-14 13:27 | disposition home or self-care (01) | DRG 690 ==
LOC: MED/SURG
PROVIDERS: ADMIT Internal Medicine; ATTEND Internal Medicine
DX: I87.2 Venous insufficiency (chronic) (peripheral); I10 Essential (primary) hypertension; K59.09 Other constipation; K21.9 Gastro-esophageal reflux disease without esophagitis; M19.90 Unspecified osteoarthritis, unspecified site; R06.02 Shortness of breath; F41.8 Other specified anxiety disorders; M79.7 Fibromyalgia; B96.29 Other Escherichia coli [E. coli] as the cause of diseases classified elsewhere; N39.0 Urinary tract infection, site not specified; I25.10 Atherosclerotic heart disease of native coronary artery without angina pectoris; R50.9 Fever, unspecified; E11.65 Type 2 diabetes mellitus with hyperglycemia
CPT/HCPCS: 36415; 36569; 71010; 71020; 71045; 71046; 74022; 80053; 80162; 80170; 81001; 82550; 82553; 82565; 82947; 84484; 85025; 87040; 87086; 87088; 87186; 93005; 94760; A4222; G0378; J1335; J1580; J1815; J7030; J7050; S0119; S0181

== ENCOUNTER 2019-07-22 15:55 | Observation (INO) ==
[2019-07-22 17:31] LABS: BILIRUBIN,URINE NEGATIVE (NEGATIVE); BLOOD/HEMOGLOBIN,URINE NEGATIVE (NEGATIVE); GLUCOSE, URINE 4+ (NEGATIVE); KETONES,URINE NEGATIVE (NEGATIVE); LEUKOCYTE ESTERASE ,URINE NEGATIVE (NEGATIVE); NITRITES,URINE POSITIVE (NEGATIVE); PROTEIN,URINE NEGATIVE (NEGATIVE); UROBILINOGEN,URINE NORMAL (NORMAL)
[2019-07-22 17:43] LABS: APPEARANCE,URINE HAZY (CLEAR); BACTERIA,URINE 1+ /HPF (NEGATIVE); COLOR,URINE YELLOW (YELLOW); RBC,URINE 0-2 /HPF (0-3); SQUAMOUS EPITHELIAL CELL,UR RARE /HPF (NEGATIVE)
[2019-07-22] MEDS ORDERED: NS 1000 ML 1,000 ML IV SCH (18:00)
[2019-07-22 18:06] VITALS: BMI 27.2
--- NOTE | 2019-07-22 18:14 | DR.H&P ---
H&P - History & Physical for Day of: H&P Date: 07/22/19 - Chief Complaint Chief Complaint: elevated blood sugar, weakness, dizziness, UTI - History of Present Illness History of Present Illness: 58 WF DIRECT ADMIT FROM DR NEVAREZ OFFICE WITH CO ELEVATED BLOOD SUGAR, PT BS IN OFFICE >600. PT WAS SEEN ~3 WEEKS AGO WITH SIMILAR COMPLAINTS. SHE WAS TREATED FOR UTI ON BACTRIM AND MACAROBID PO. PT WAS STARTED ON TOUJEO. PT STATES SHE TOOK BOTH ANTIBIOTICS. PT HAS HX OF NON COMPLIANCE. PT REPORTS SHE HAD A PAKC OF POWDER DOUGHNUTS THIS AM AND DID NOT TAKE HER INSULIN. PT HAS PMH OF CAD, CHF, TREY, COPD, HTN, DM. PT ADMITTED FOR TREATMENT OF ACUTE ILLNESS. - Past Medical History Past Medical History: CT, Coronary Artery Disease, Hypertension, Dementia, Anxiety, Asthma, Arthritis Additional Medical History: Fibromyalgia, Congestive heart failure - Past Surgical History Surgical History: Angioplasty/Stents - Family History Family Medical History: Hypertension - Social History Does patient currently use any type of tobacco product: No Have you used tobacco products in the last 12 months: No Type of Tobacco Use: None Does any household member use tobacco: No Alcohol Use: None Drug Use: None Risks, benefits, and alternatives of opioids discussed: No - Medications Home Medications: ceftriaxone [From Rocephin] Allergy (Verified 12/08/18 17:12) dicyclomine [From Bentyl] Allergy (Verified 03/29/18 20:23) ketorolac [From Toradol] Allergy (Verified 03/29/18 20:23) metoclopramide [From Reglan] Allergy (Verified 03/29/18 20:23) nalbuphine [From Nubain] Allergy (Verified 03/29/18 20:23) prochlorperazine [From Compazine] Allergy (Verified 03/29/18 20:23) - Review of Systems Constitutional: Weakness Eyes: No Symptoms Reported ENT: No Symptoms Reported Respiratory: Shortness of Breath Cardiovascular: No Symptoms Reported, Edema Gastrointestinal: No Symptoms Reported Genitourinary: Frequency Musculoskeletal: No Symptoms Reported Skin: No Symptoms Reported Neurological: Weakness - Physical Exam Vital Signs: Blood Pressure [Right Arm] 126/86 Blood Pressure [Left Arm] 127/75 Blood Pressure 126/86 Oriented: Normal Eyes: Normal Ear: Normal Nose: Normal Throat: Normal Respiratory: RLL Diminished, LLL Diminished Cardiovascular: Normal : Normal Auscultation: Bowel Sounds: Normal Palpation: Normal Tenderness: Normal Skin: Decreased Turgur Musculoskeletal: Right, Left, Back:Thoracic, Back:Lumbar, Tender Psychiatric: Anxiety Affect: Anxious, Depressed Speech Pattern: Clear, Appropriate - Assessment/Plan (1) Hyperglycemia Status: Acute Plan: ADMIT, IV HYDRATION. BLOOD AND URINE CULTURES ON ADMISSION. SSI, RESUME TOUJEO. IV ATBX FOR UTI, PAIN CONTROL. BP MONITORING, EKG ON ADMISSION (2) UTI (urinary tract infection) Qualifiers: Urinary tract infection type: acute cystitis Hematuria presence: with hematuria Qualified Code(s): N30.01 - Acute cystitis with hematuria Status: Acute (3) CHF (congestive heart failure) Status: Acute (4) History of COPD Status: Chronic (5) History of coronary artery disease Status: Chronic (6) Radiculopathy of lumbar region Status: Chronic - Allergies Allergies/Adverse Reactions: Allergies Allergy/AdvReac Type Severity Reaction Status Date / Time ceftriaxone [From Rocephin] Allergy Verified 12/08/18 17:12 dicyclomine [From Bentyl] Allergy Verified 03/29/18 20:23 ketorolac [From Toradol] Allergy Verified 03/29/18 20:23 metoclopramide [From Reglan] Allergy Verified 03/29/18 20:23 nalbuphine [From Nubain] Allergy Verified 03/29/18 20:23 prochlorperazine Allergy Verified 03/29/18 20:23 [From Compazine]
[2019-07-22] MEDS ORDERED: NS 1000 ML 1,000 ML ONE (18:18)
[2019-07-22 18:59] LABS: BASOPHILS # (AUTO) 0.1 X10^3/uL (0.0-0.1); BASOPHILS % (AUTO) 0.9 % (0.2-1.0); EOSINOPHILS # (AUTO) 0.3 x10^3/uL (0.0-0.2); EOSINOPHILS % (AUTO) 4.7 % (0.9-2.9); HEMATOCRIT 35.9 % (36.0-47.0); HEMOGLOBIN 12.4 g/dL (12.0-16.0); LYMPHOCYTES # (AUTO) 2.2 X10^3/uL (1.3-2.9); LYMPHOCYTES % (AUTO) 29.6 % (21.0-51.0); MEAN CORPUSCULAR HEMOGLOBIN 28.3 pg (27.0-34.0); MEAN CORPUSCULAR HGB CONC 34.5 g/dL (33.0-35.0); MEAN CORPUSCULAR VOLUME 81.8 fL (80.0-100.0); MEAN PLATELET VOLUME 8.6 fL (7.4-11.0); MONOCYTES # (AUTO) 0.5 x10^3/uL (0.3-0.8); MONOCYTES % (AUTO) 6.9 % (0.0-13.0); NEUTROPHILS # (AUTO) 4.3 x10^3/uL (2.2-4.8); NEUTROPHILS % (AUTO) 57.9 % (42.0-75.0); PLATELET COUNT 228 X10^3/uL (150.0-450.0); RED BLOOD COUNT 4.39 X10^6/uL (3.5-5.4); RED CELL DISTRIBUTION WIDTH 15.6 % (11.6-16.5); WHITE BLOOD COUNT 7.4 X10^3/uL (3.6-10.0)
[2019-07-22] MEDS: NORCO 7.5/325 MG TAB PO PRN (18:59)
[2019-07-22 19:22] LABS: ALBUMIN 3.5 g/dL (3.4-5.0); ALKALINE PHOSPHATASE 122 Units/L (46-116); BLOOD UREA NITROGEN 23 mg/dL (7-18); CARBON DIOXIDE 28.3 mmol/L (21-32); CHLORIDE 95 mmol/L (98-107); CREATININE 1.13 mg/dL (0.55-1.02); DIGOXIN 0.52 ng/mL (0.9-2); MAGNESIUM 2.4 mg/dL (1.7-2.9); SODIUM 131 mmol/L (136-145); TOTAL PROTEIN 8.2 g/dL (6.4-8.2); eGFR NON BLACK RACES 53 (>60)
[2019-07-22 19:29] LABS: COR NA(FOR HYPERGLY) 142 mmol/L (136-145)
[2019-07-22] MEDS ORDERED: ZOFRAN INJ 4 MG VIAL IVP PRN (19:43)
[2019-07-22 19:49] LABS: ASPARTATE AMINO TRANSFERASE 20 Units/L (15-37)
[2019-07-22 19:50] LABS: ALANINE AMINOTRANSFERASE 22 Units/L (12-78)
[2019-07-22] MEDS: HumuLIN R SUBCUT PRN ×2 (19:56→23:28)
[2019-07-22] MEDS ORDERED: SNACK - Diabetic Appropriate PO SCH (20:00)
[2019-07-22] MEDS: SNACK - Diabetic Appropriate PO SCH (20:00)
[2019-07-22] MEDS: ZOFRAN INJ 4 MG VIAL IVP PRN (20:56)
[2019-07-22] MEDS: LEVAQUIN PREMIX IV 500 MG 500 MG/100 ML BAG IV SCH (21:00)
[2019-07-22] MEDS: COLACE CAP 100 MG PO SCH (21:01)
[2019-07-22] MEDS: LIPITOR TAB 40 MG PO SCH (21:01)
[2019-07-22] MEDS: CARDIZEM CD 180 MG 24-HR PO SCH (21:02)
[2019-07-22] MEDS: TOUJEO SOLOSTAR PEN SC SCH ×2 (21:03→23:28)
[2019-07-22] MEDS: LANOXIN PO SCH (21:07)
[2019-07-22] MEDS: PLAVIX PO SCH (21:08)
[2019-07-23] MEDS: NORCO 7.5/325 MG TAB PO PRN ×3 (01:46→16:01)
[2019-07-23 05:15] LABS: BASOPHILS # (AUTO) 0.1 X10^3/uL (0.0-0.1); BASOPHILS % (AUTO) 0.8 % (0.2-1.0); EOSINOPHILS # (AUTO) 0.4 x10^3/uL (0.0-0.2); EOSINOPHILS % (AUTO) 6.1 % (0.9-2.9); HEMATOCRIT 34.9 % (36.0-47.0); HEMOGLOBIN 11.5 g/dL (12.0-16.0); LYMPHOCYTES # (AUTO) 2.6 X10^3/uL (1.3-2.9); LYMPHOCYTES % (AUTO) 36.7 % (21.0-51.0); MEAN CORPUSCULAR HEMOGLOBIN 27.1 pg (27.0-34.0); MEAN CORPUSCULAR HGB CONC 32.9 g/dL (33.0-35.0); MEAN CORPUSCULAR VOLUME 82.4 fL (80.0-100.0); MONOCYTES # (AUTO) 0.5 x10^3/uL (0.3-0.8); MONOCYTES % (AUTO) 7.6 % (0.0-13.0); NEUTROPHILS # (AUTO) 3.5 x10^3/uL (2.2-4.8); NEUTROPHILS % (AUTO) 48.8 % (42.0-75.0); PLATELET COUNT 191 X10^3/uL (150.0-450.0); RED BLOOD COUNT 4.23 X10^6/uL (3.5-5.4); RED CELL DISTRIBUTION WIDTH 15.4 % (11.6-16.5); WHITE BLOOD COUNT 7.1 X10^3/uL (3.6-10.0)
[2019-07-23 05:34] LABS: ALANINE AMINOTRANSFERASE 23 Units/L (12-78); ALKALINE PHOSPHATASE 102 Units/L (46-116); ASPARTATE AMINO TRANSFERASE 19 Units/L (15-37); BLOOD UREA NITROGEN 18 mg/dL (7-18); CALCIUM 8.5 mg/dL (8.5-10.1); CARBON DIOXIDE 27.6 mmol/L (21-32); CHLORIDE 100 mmol/L (98-107); COR CA(FOR HYPOALB) 9.3 mg/dL (8.5-10.1); COR NA(FOR HYPERGLY) 142 mmol/L (136-145); CREATININE 0.99 mg/dL (0.55-1.02); SODIUM 137 mmol/L (136-145); TOTAL PROTEIN 7.3 g/dL (6.4-8.2); eGFR NON BLACK RACES > 60 (>60)
[2019-07-23] MEDS: HumuLIN R SUBCUT PRN ×4 (05:59→20:19)
--- NOTE | 2019-07-23 09:02 | RAD ---
History: Coronary artery disease and history of CHF Study: AP chest Comparison: December 13, 2018 Findings: The lungs are clear and the heart size is normal. The descending aorta is tortuous. There is no edema or effusion. No bony abnormality is demonstrated. Impression: No evidence for active cardiopulmonary disease Reported By:
[2019-07-23] MEDS: NS 1000 ML 1,000 ML IV SCH ×2 (09:10→22:48)
[2019-07-23] MEDS: ZOFRAN INJ 4 MG VIAL IVP PRN ×2 (09:11→19:16)
[2019-07-23] MEDS: LEVAQUIN PREMIX IV 500 MG 500 MG/100 ML BAG IV SCH (09:11)
[2019-07-23] MEDS: LIPITOR TAB 40 MG PO SCH (09:12)
[2019-07-23] MEDS: CARDIZEM CD 180 MG 24-HR PO SCH (09:12)
[2019-07-23] MEDS: PLAVIX PO SCH (09:13)
[2019-07-23] MEDS: LANOXIN PO SCH (09:13)
[2019-07-23] MEDS ORDERED: VISTARIL PO PRN (11:51)
[2019-07-23] MEDS ORDERED: VISTARIL PO ONE (12:33)
--- NOTE | 2019-07-23 12:36 | PCM.PROG ---
Progress Note - Progress Note for Day of Date of Exam: 07/23/19 - Subjective Subjective: 58 WF ADMITTED ON 07/22 WITH UNCONTROLLED BLOOD SUGAR, > 600 IN OUR OFFICE AND UTI. PT WAS STARTED ON IV HYDRATION, SSI AND BASAL INSULIN THERAPY, ACETONE NEGATIVE. PT GIVEN LEVAQUIN IV FOR UTI. THIS AM CULTURE + GRAM NEG ONEL. PT IV ATBX CHANGES TO INVANZ SHE PREVIOUSLY TOLERATED WELL. PT ENCOUARGED ORAL HYDRATION. CXR ORDERD FOR THIS AM. BLOOD SUGAR ~300, PT TOUJEO INCREASED. - Past Medical Family Social History Past Med/Fam/Surg Hx: No changes since H&P Allergies: Allergies ceftriaxone [From Rocephin] Allergy (Verified 12/08/18 17:12) dicyclomine [From Bentyl] Allergy (Verified 03/29/18 20:23) ketorolac [From Toradol] Allergy (Verified 03/29/18 20:23) metoclopramide [From Reglan] Allergy (Verified 03/29/18 20:23) nalbuphine [From Nubain] Allergy (Verified 03/29/18 20:23) prochlorperazine [From Compazine] Allergy (Verified 03/29/18 20:23) - Review of Systems ROS: No change since H&P - Vital Signs and I&O's Vital Signs: Temperature 97.7 F Pulse Rate [Right Brachial] 66 Pulse Rate 64 Respiratory Rate 20 Blood Pressure [Right Arm] 131/77 Blood Pressure [Left Arm] 127/75 Blood Pressure 126/86 O2 Sat by Pulse Oximetry 96 Intake and Output: Intake & Output 07/21/19 07/22/19 07/23/19 07/24/19 11:59 11:59 11:59 11:59 Intake Total 445 / 445 Output Total 1700 / 1700 Balance -1255 / -1255 - Physical Exam Oriented: Normal Eyes: Normal Ear: Normal Nose: Normal Throat: Normal Respiratory: Normal Cardiovascular: Normal : Normal Auscultation: Bowel Sounds: Normal Tenderness: Normal Skin: Decreased [place]urgur Musculoskeletal: Right, Left, Back:Thoracic, Back:Lumbar, Tender Psychiatric: Anxiety Affect: Anxious, Depressed Speech Pattern: Clear, Appropriate - Laboratory and Diagnostics Result Diagrams: 07/23/19 04:06 07/23/19 04:06 Labs: 07/22/19 16:35 Urine,Clean Catch Urine Culture - Preliminary Laboratory WBC 7.1 X10^3/uL (3.6-10.0) 07/23/19 04:06 RBC 4.23 X10^6/uL (3.5-5.4) 07/23/19 04:06 Hgb 11.5 g/dL (12.0-16.0) L 07/23/19 04:06 Hct 34.9 % (36.0-47.0) L 07/23/19 04:06 MCV 82.4 fL (80.0-100.0) 07/23/19 04:06 MCH 27.1 pg (27.0-34.0) 07/23/19 04:06 MCHC 32.9 g/dL (33.0-35.0) L 07/23/19 04:06 RDW 15.4 % (11.6-16.5) 07/23/19 04:06 Plt Count 191 X10^3/uL (150.0-450.0) 07/23/19 04:06 MPV 9.0 fL (7.4-11.0) 07/23/19 04:06 Neut % (Auto) 48.8 % (42.0-75.0) 07/23/19 04:06 Lymph % (Auto) 36.7 % (21.0-51.0) 07/23/19 04:06 [place] % (Auto) 7.6 % (0.0-13.0) 07/23/19 04:06 Eos % (Auto) 6.1 % (0.9-2.9) H 07/23/19 04:06 Baso % (Auto) 0.8 % (0.2-1.0) 07/23/19 04:06 Neut # (Auto) 3.5 x10^3/uL (2.2-4.8) 07/23/19 04:06 Lymph # (Auto) 2.6 X10^3/uL (1.3-2.9) 07/23/19 04:06 [place] # (Auto) 0.5 x10^3/uL (0.3-0.8) 07/23/19 04:06 Eos # (Auto) 0.4 x10^3/uL (0.0-0.2) H 07/23/19 04:06 Baso # (Auto) 0.1 X10^3/uL (0.0-0.1) 07/23/19 04:06 Absolute Nucleated RBC 0.1 /100WBC 07/23/19 04:06 Sodium 137 mmol/L (136-145) 07/23/19 04:06 Corrected Sodium 142 mmol/L (136-145) 07/23/19 04:06 Potassium 4.1 mmol/L (3.5-5.1) 07/23/19 04:06 Chloride 100 mmol/L (98-107) 07/23/19 04:06 Carbon Dioxide 27.6 mmol/L (21-32) 07/23/19 04:06 BUN 18 mg/dL (7-18) 07/23/19 04:06 Creatinine 0.99 mg/dL (0.55-1.02) 07/23/19 04:06 Est GFR (MDRD) Af Amer > 60 (>60) 07/23/19 04:06 Est GFR (MDRD) Non-Af > 60 (>60) 07/23/19 04:06 Glucose 313 mg/dL (65-99) H 07/23/19 04:06 POC Glucose (mg/dL) 337 mg/dL (65-99) H 07/23/19 11:08 Calcium 8.5 mg/dL (8.5-10.1) 07/23/19 04:06 Corrected Calcium 9.3 mg/dL (8.5-10.1) 07/23/19 04:06 Magnesium 2.4 mg/dL (1.7-2.9) 07/22/19 18:23 Total Bilirubin 0.40 mg/dL (0.2-1.0) 07/23/19 04:06 AST 19 Units/L (15-37) 07/23/19 04:06 ALT 23 Units/L (12-78) 07/23/19 04:06 Alkaline Phosphatase 102 Units/L (46-116) 07/23/19 04:06 Total Protein 7.3 g/dL (6.4-8.2) 07/23/19 04:06 Albumin 3.0 g/dL (3.4-5.0) L 07/23/19 04:06 Globulin 4.3 g/dL (2.5-4.5) 07/23/19 04:06 Albumin/Globulin Ratio 0.7 Ratio (1.1-2.1) L 07/23/19 04:06 Specimen Type Clean catch urine 07/22/19 16:35 Urine Color Yellow (YELLOW) 07/22/19 16:35 Urine Appearance Hazy (CLEAR) 07/22/19 16:35 Urine pH 6.0 (5.0 - 8.0) 07/22/19 16:35 Ur Specific [place] 1.010 (1.000-1.030) 07/22/19 16:35 Urine Protein Negative (NEGATIVE) 07/22/19 16:35 Urine Glucose (UA) 4+ (NEGATIVE) 07/22/19 16:35 Urine Ketones Negative (NEGATIVE) 07/22/19 16:35 Urine Occult Blood Negative (NEGATIVE) 07/22/19 16:35 Urine Nitrite Positive (NEGATIVE) 07/22/19 16:35 Urine Bilirubin Negative (NEGATIVE) 07/22/19 16:35 Urine Urobilinogen Normal (NORMAL) 07/22/19 16:35 Ur Leukocyte Esterase Negative (NEGATIVE) 07/22/19 16:35 Urine RBC 0-2 /HPF (0-3) 07/22/19 16:35 Urine WBC 0-2 /HPF (0-5) 07/22/19 16:35 Ur Squamous Epith Cells Rare /HPF (NEGATIVE) 07/22/19 16:35 Urine Bacteria 1+ /HPF (NEGATIVE) 07/22/19 16:35 Ur Culture Indicated? Yes/culture set up 07/22/19 16:35 Digoxin 0.52 ng/mL (0.9-2) L 07/22/19 18:23 Acetone, Semi-Quant Negative (NEGATIVE) 07/22/19 18:23 - Plan (1) Hyperglycemia Status: Acute Plan: IV HYDRATION. BLOOD AND URINE CULTURES ON ADMISSION. SSI, RESUME TOUJEO. IV ATBX FOR UTI, PAIN CONTROL. BP MONITORING, EKG ON ADMISSION (2) UTI (urinary tract infection) Status: Inactive Qualifiers: Urinary tract infection type: acute cystitis Hematuria presence: with hematuria Qualified Code(s): N30.01 - Acute cystitis with hematuria (3) CHF (congestive heart failure) Status: Chronic (4) History of COPD Status: Chronic (5) History of coronary artery disease Status: Chronic (6) Radiculopathy of lumbar region Status: Chronic
[2019-07-23] MEDS: INVANZ INJ 1 GM VIAL 1 GM in NS 100 ML IV + SPIKE MINIBAG* 100 ML IV SCH (12:48)
[2019-07-23] MEDS: SNACK - Diabetic Appropriate PO SCH (20:01)
[2019-07-23] MEDS: COLACE CAP 100 MG PO SCH (20:15)
[2019-07-23] MEDS ORDERED: TOUJEO SOLOSTAR PEN SC SCH (21:00)
[2019-07-24] MEDS: NORCO 7.5/325 MG TAB PO PRN ×2 (03:10→09:25)
[2019-07-24 04:26] LABS: BASOPHILS % (AUTO) 0.6 % (0.2-1.0); EOSINOPHILS # (AUTO) 0.4 x10^3/uL (0.0-0.2); EOSINOPHILS % (AUTO) 5.4 % (0.9-2.9); HEMATOCRIT 35.4 % (36.0-47.0); HEMOGLOBIN 11.8 g/dL (12.0-16.0); LYMPHOCYTES # (AUTO) 2.6 X10^3/uL (1.3-2.9); LYMPHOCYTES % (AUTO) 35.6 % (21.0-51.0); MEAN CORPUSCULAR HEMOGLOBIN 27.4 pg (27.0-34.0); MEAN CORPUSCULAR HGB CONC 33.3 g/dL (33.0-35.0); MEAN CORPUSCULAR VOLUME 82.3 fL (80.0-100.0); MEAN PLATELET VOLUME 8.6 fL (7.4-11.0); MONOCYTES # (AUTO) 0.5 x10^3/uL (0.3-0.8); MONOCYTES % (AUTO) 7.4 % (0.0-13.0); NEUTROPHILS # (AUTO) 3.7 x10^3/uL (2.2-4.8); PLATELET COUNT 180 X10^3/uL (150.0-450.0); RED CELL DISTRIBUTION WIDTH 15.2 % (11.6-16.5); WHITE BLOOD COUNT 7.3 X10^3/uL (3.6-10.0)
[2019-07-24 04:35] LABS: ALANINE AMINOTRANSFERASE 41 Units/L (12-78); ALBUMIN 2.9 g/dL (3.4-5.0); ALKALINE PHOSPHATASE 110 Units/L (46-116); ASPARTATE AMINO TRANSFERASE 42 Units/L (15-37); BLOOD UREA NITROGEN 15 mg/dL (7-18); CALCIUM 8.4 mg/dL (8.5-10.1); CARBON DIOXIDE 27.5 mmol/L (21-32); CHLORIDE 103 mmol/L (98-107); COR CA(FOR HYPOALB) 9.3 mg/dL (8.5-10.1); COR NA(FOR HYPERGLY) 143 mmol/L (136-145); CREATININE 0.97 mg/dL (0.55-1.02); SODIUM 139 mmol/L (136-145); eGFR NON BLACK RACES > 60 (>60)
[2019-07-24] MEDS: HumuLIN R SUBCUT PRN ×3 (06:16→17:07)
[2019-07-24] MEDS: ZOFRAN INJ 4 MG VIAL IVP PRN (07:22)
[2019-07-24] MEDS ORDERED: BENADRYL INJ 50 MG VIAL IVP ONE (09:07)
[2019-07-24] MEDS: INVANZ INJ 1 GM VIAL 1 GM in NS 100 ML IV + SPIKE MINIBAG* 100 ML IV SCH (09:21)
[2019-07-24] MEDS: CARDIZEM CD 180 MG 24-HR PO SCH (09:21)
[2019-07-24] MEDS: LANOXIN PO SCH (09:22)
[2019-07-24] MEDS: PLAVIX PO SCH (09:22)
[2019-07-24] MEDS: LIPITOR TAB 40 MG PO SCH (09:22)
[2019-07-24] MEDS: NS 1000 ML 1,000 ML IV SCH (09:38)
--- NOTE | 2019-07-24 09:53 | RAD ---
History: Hyperglycemia and urinary tract infection graft study: KUB Comparison: December 11, 2018 Findings: The colon is full of fecal material with formed stool in the rectosigmoid and left colon. There are cholecystectomy clips. There is no gaseous distention of small bowel . There is no significant bony abnormality. Impression: Findings most suggestive of constipation Reported By:
[2019-07-24] MEDS: NEURONTIN CAP 300 MG PO SCH ×2 (10:00→15:18)
[2019-07-24] MEDS ORDERED: DULCOLAX SUPPOSITORY 10 MG RECTAL ONE (13:23)
[2019-07-24] MEDS ORDERED: LEVAQUIN PREMIX IV 750 MG 750 MG/150 ML BAG IV SCH (14:00)
[2019-07-24 16:17] VITALS: BP 138/68
== END 2019-07-24 18:05 | disposition home or self-care (01) ==
LOC: MED/SURG
PROVIDERS: ADMIT Internal Medicine; ATTEND Internal Medicine
DX: R53.1 Weakness; I25.10 Atherosclerotic heart disease of native coronary artery without angina pectoris; N30.01 Acute cystitis with hematuria; E11.65 Type 2 diabetes mellitus with hyperglycemia; F41.8 Other specified anxiety disorders; M54.16 Radiculopathy, lumbar region; B96.1 Klebsiella pneumoniae [K. pneumoniae] as the cause of diseases classified elsewhere; J44.9 Chronic obstructive pulmonary disease, unspecified; I11.0 Hypertensive heart disease with heart failure; R94.31 Abnormal electrocardiogram [ECG] [EKG]; R42 Dizziness and giddiness; I50.9 Heart failure, unspecified
CPT/HCPCS: 36415; 71010; 71045; 74000; 74018; 80053; 80162; 81001; 82009; 82947; 83735; 85025; 87040; 87086; 87088; 87186; 93005; A4222; Q0177; G0378; J1200; J1335; J1815; J1956; J2405; J7030; J7050

== ENCOUNTER 2022-07-05 09:42 | Inpatient (IN) ==
[2022-07-05] MEDS ORDERED: ZOFRAN INJ 4 MG VIAL IVP PRN (10:26)
[2022-07-05] MEDS ORDERED: INVanz INJ 1 GRAM VIAL 1 G in NS 100 ML IV 100 ML IV SCH (11:00)
[2022-07-05] MEDS ORDERED: WOUND CARE XX SCH (11:00)
[2022-07-05] MEDS: NS 1,000 ML IV 1,000 ML IV SCH ×2 (11:15→23:28)
[2022-07-05] MEDS: PROTONIX INJ 40 MG VIAL IVP SCH (11:18)
[2022-07-05] MEDS: NORCO 5/325 MG TAB PO PRN ×2 (11:23→17:18)
[2022-07-05 11:24] LABS: BASOPHILS # (AUTO) 0.1 X10^3/uL (0.0-0.1); BASOPHILS % (AUTO) 0.7 % (0.2-1.0); EOSINOPHILS # (AUTO) 0.2 x10^3/uL (0.0-0.2); EOSINOPHILS % (AUTO) 2.6 % (0.9-2.9); HEMATOCRIT 24.7 % (36.0-47.0); HEMOGLOBIN 8.6 g/dL (12.0-16.0); LYMPHOCYTES # (AUTO) 1.9 X10^3/uL (1.3-2.9); MEAN CORPUSCULAR HEMOGLOBIN 27.6 pg (27.0-34.0); MEAN CORPUSCULAR HGB CONC 34.9 g/dL (33.0-35.0); MONOCYTES # (AUTO) 0.6 x10^3/uL (0.3-0.8); MONOCYTES % (AUTO) 6.5 % (0.0-13.0); NEUTROPHILS # (AUTO) 6.1 x10^3/uL (2.2-4.8); NEUTROPHILS % (AUTO) 69.2 % (42.0-75.0); RED BLOOD COUNT 3.13 X10^6/uL (3.5-5.4); RED CELL DISTRIBUTION WIDTH 15.2 % (11.6-16.5); WHITE BLOOD COUNT 8.9 X10^3/uL (3.6-10.0)
[2022-07-05] MEDS: APRESOLINE INJ 20 MG VIAL IVP PRN ×2 (11:24→23:57)
[2022-07-05 11:38] LABS: ALANINE AMINOTRANSFERASE 41 Units/L (12-78); ALBUMIN 2.4 g/dL (3.4-5.0); ALKALINE PHOSPHATASE 122 Units/L (46-116); ASPARTATE AMINO TRANSFERASE 27 Units/L (15-37); BLOOD UREA NITROGEN 43 mg/dL (7-18); CARBON DIOXIDE 23.7 mmol/L (21-32); CHLORIDE 104 mmol/L (98-107); COR CA(FOR HYPOALB) 9.3 mg/dL (8.5-10.1); COR NA(FOR HYPERGLY) 137 mmol/L (136-145); CREATINE KINASE 167 Units/L (26-192); CREATININE 3.57 mg/dL (0.55-1.02); MAGNESIUM 1.8 mg/dL (1.7-2.9); SODIUM 136 mmol/L (136-145); TOTAL PROTEIN 7.2 g/dL (6.4-8.2); eGFR NON BLACK RACES 14 (>60)
[2022-07-05 11:44] VITALS: BMI 24.7
[2022-07-05 11:49] LABS: LACTIC ACID < 0.3 mmol/L (0.4-2.0)
[2022-07-05] MEDS ORDERED: PROVENTIL NEB TX 0.083% 2.5MG/ 3ML NEB PRN (12:37)
[2022-07-05 13:28] LABS: ABG BASE EXCESS -3.9 mmol/L (-2.0-2.0); ABG HCO3 18.8 mmol/L (22-26)
[2022-07-05 13:29] LABS: ABG ALLEN TEST POS
[2022-07-05] MEDS: CARDIZEM CD 180 MG 24-HR PO SCH (13:55)
--- NOTE | 2022-07-05 13:57 | RAD ---
HISTORYCAD, CHFSTUDYCHEST, PA/LAT [id number] trachea is midline. The cardiac silhouette is unremarkable . The lungs are clear without focal infiltrate or effusion. The bony thorax is unremarkable.IMPRESSIONNo acute cardiopulmonary disease.Electronically signed by: LYDIA BELTRAN (Jul 05, 2022 13:55:03)
[2022-07-05 14:14] LABS: BILIRUBIN,URINE NEGATIVE (NEGATIVE); BLOOD/HEMOGLOBIN,URINE 2+ (NEGATIVE); GLUCOSE, URINE 3+ (NEGATIVE); KETONES,URINE NEGATIVE (NEGATIVE); LEUKOCYTE ESTERASE ,URINE 2+ (NEGATIVE); NITRITES,URINE NEGATIVE (NEGATIVE); PH,URINE 6.5 (5.0 - 8.0); PROTEIN,URINE 4+ (NEGATIVE); UROBILINOGEN,URINE NORMAL (NORMAL)
[2022-07-05 14:22] LABS: APPEARANCE,URINE CLOUDY (CLEAR); COLOR,URINE STRAW (YELLOW)
[2022-07-05 14:30] LABS: BACTERIA,URINE TRACE /HPF (NEGATIVE); RBC,URINE 0-2 /HPF (0-3); SQUAMOUS EPITHELIAL CELL,UR RARE /HPF (NEGATIVE)
[2022-07-05] MEDS: NovoLIN R (or HumuLIN R) SUBCUT PRN (16:25)
[2022-07-05] MEDS ORDERED: APRESOLINE INJ 20 MG VIAL IVP ONE (17:11)
--- NOTE | 2022-07-05 17:50 | DR.H&P ---
H&P - History & Physical for Day of: H&P Date: 07/05/22 - Chief Complaint Chief Complaint: elevated blood pressure, weakness, sob, "UTI" - History of Present Illness History of Present Illness: PT IS 61 WF DIRECT ADMIT WITH FROM DR [facility] WITH HYPERTENSIVE URGENCY, BP 210/110 IN OFFICE. PT REPORTS SHE HAS COMPLETED CIPRO PO FOR A UTI AND CONTINUES WITH DYSURIA. PT HAS PMH OF UNCONTROLLED DM, RENAL DISEASE, CAD AND OA. PT ADMITTED FOR TREATMENT OF ACUTE ILLNESS. - Past Medical History Past Medical History: [place], Coronary Artery Disease, Hypertension, Diabetes, Dementia, Anxiety, Asthma, Arthritis Additional Medical History: Fibromyalgia, Congestive heart failure - Past Surgical History Surgical History: Angioplasty/Stents, Appendectomy, Cholecystectomy, [employer] Surgery, Hysterectomy, Ortho Surgery - Family History Family Medical History: Diabetes Mellitus, Hypertension - Social History Does patient currently use any type of tobacco product: No Have you used tobacco products in the last 12 months: No Type of Tobacco Use: None Does any household member use tobacco: No Alcohol Use: None Drug Use: None - Medications Home Medications: ceftriaxone [From Rocephin] Allergy (Verified 05/03/22 16:52) dicyclomine [From Bentyl] Allergy (Verified 05/03/22 16:52) ketorolac [From Toradol] Allergy (Verified 05/03/22 16:52) metoclopramide [From Reglan] Allergy (Verified 05/03/22 16:52) nalbuphine [From Nubain] Allergy (Verified 05/03/22 16:52) prochlorperazine [From Compazine] Allergy (Verified 05/03/22 16:52) CONTINUE taking the following medications clopidogrel 75 mg tablet 75 mg PO DAILY 07/05/22 [History] fluticasone propionate 50 mcg/actuation nasal spray,suspension 1 spray intranasal DAILY 07/05/22 [History] insulin glargine U-300 conc 300 unit/mL (1.5 mL) subcutaneous pen (Toujeo SoloStar U-300 Insulin) 60 unit subcut DAILY 07/05/22 [History] - Review of Systems Constitutional: Weakness, Malaise Eyes: No Symptoms Reported ENT: No Symptoms Reported Respiratory: SOB with Excertion Cardiovascular: Edema Gastrointestinal: Nausea, Vomiting Genitourinary: No Symptoms Reported Musculoskeletal: No Symptoms Reported Skin: No Symptoms Reported Neurological: Weakness - Physical Exam Vital Signs: Temperature 98.5 F Pulse Rate [Left Brachial] 78 Respiratory Rate 18 Blood Pressure [Right Arm] 162/70 Blood Pressure [Left Arm] 196/88 Blood Pressure 176/97 O2 Sat by Pulse Oximetry 97 Oriented: Normal Eyes: Normal Ear: Normal Nose: Normal Throat: Normal Respiratory: RLL Diminished, LLL Diminished Cardiovascular: Normal : Normal Auscultation: Bowel Sounds: Normal Palpation: Normal Tenderness: Normal Skin: Decreased Turgur Musculoskeletal: Normal Psychiatric: Anxiety Affect: Anxious Speech Pattern: Clear, Appropriate - Assessment/Plan (1) Hypertensive urgency Status: Acute Plan: ADMIT, SERIAL CE AND EKG. BP CONTROL, BS CONTROL. BLOOD AND URINE CULTURE. GENTLE IV HYDRATION, STRICT I&OS. ABG, D DIMER ON ADMISSION. VERIFY HOME MEDICATION, IV ATBX THERAPY (2) COVID Status: Acute (3) CAD (coronary artery disease) Status: Acute (4) UTI (urinary tract infection) Qualifiers: Urinary tract infection type: site unspecified Hematuria presence: without hematuria Qualified Code(s): N39.0 - Urinary tract infection, site not specified Status: Acute (5) Diabetic neuropathy Status: Chronic (6) GERD (gastroesophageal reflux disease) Status: Chronic (7) History of CHF (congestive heart failure) Status: Chronic (8) Acute on chronic renal failure Status: Acute - Allergies Allergies/Adverse Reactions: Allergies Allergy/AdvReac Type Severity Reaction Status Date / Time ceftriaxone [From Rocephin] Allergy Verified 05/03/22 16:52 dicyclomine [From Bentyl] Allergy Verified 05/03/22 16:52 ketorolac [From Toradol] Allergy Verified 05/03/22 16:52 metoclopramide [From Reglan] Allergy Verified 05/03/22 16:52 nalbuphine [From Nubain] Allergy Verified 05/03/22 16:52 prochlorperazine Allergy Verified 05/03/22 16:52 [From Compazine]
[2022-07-05] MEDS: LANOXIN PO SCH (18:02)
[2022-07-05] MEDS: ZOLOFT PO SCH (18:09)
[2022-07-05] MEDS ORDERED: LOVENOX INJ 40 MG SYR SC SCH (19:00)
[2022-07-05] MEDS: SNACK - Diabetic Appropriate PO SCH (20:15)
[2022-07-05] MEDS: LIPITOR TAB 40 MG PO SCH (20:20)
[2022-07-05] MEDS: COLACE CAP 100 MG PO SCH (20:20)
[2022-07-05] MEDS: PHENERGAN INJ 25 MG IM PRN (21:49)
[2022-07-06] MEDS: NORCO 5/325 MG TAB PO PRN ×3 (00:01→11:39)
[2022-07-06] MEDS ORDERED: ZOFRAN INJ 4 MG VIAL ONE (00:55)
[2022-07-06] MEDS: NS 1,000 ML IV 1,000 ML IV SCH ×2 (01:06→14:23)
[2022-07-06] MEDS: ZOFRAN INJ 4 MG VIAL IVP PRN ×3 (01:20→12:48)
[2022-07-06] MEDS: APRESOLINE INJ 20 MG VIAL IVP PRN ×2 (05:20→15:44)
[2022-07-06 06:28] LABS: BASOPHILS # (AUTO) 0.1 X10^3/uL (0.0-0.1); BASOPHILS % (AUTO) 0.9 % (0.2-1.0); EOSINOPHILS % (AUTO) 0.5 % (0.9-2.9); HEMATOCRIT 25.2 % (36.0-47.0); HEMOGLOBIN 8.7 g/dL (12.0-16.0); LYMPHOCYTES # (AUTO) 1.1 X10^3/uL (1.3-2.9); LYMPHOCYTES % (AUTO) 12.6 % (21.0-51.0); MEAN CORPUSCULAR HGB CONC 34.7 g/dL (33.0-35.0); MEAN CORPUSCULAR VOLUME 77.9 fL (80.0-100.0); MEAN PLATELET VOLUME 8.2 fL (7.4-11.0); MONOCYTES # (AUTO) 0.3 x10^3/uL (0.3-0.8); MONOCYTES % (AUTO) 4.1 % (0.0-13.0); NEUTROPHILS # (AUTO) 6.8 x10^3/uL (2.2-4.8); NEUTROPHILS % (AUTO) 81.9 % (42.0-75.0); RED BLOOD COUNT 3.23 X10^6/uL (3.5-5.4); RED CELL DISTRIBUTION WIDTH 15.7 % (11.6-16.5); WHITE BLOOD COUNT 8.3 X10^3/uL (3.6-10.0)
--- NOTE | 2022-07-06 06:34 | RAD ---
HISTORYCOVID-19, shortness of breathSTUDYChest AP [id number]/28/2022FINDINGSHear t size is normal. Iliana are normal. Lung spencer are clear. No pleural effusions are identified. Bony thorax is unremarkable.IMPRESSIONNo significant abnormality identifiedElectronically signed by: UNIQUE HENAO (Jul 06, 2022 06:32:50)
[2022-07-06 06:37] LABS: ALBUMIN 2.3 g/dL (3.4-5.0); CALCIUM 7.8 mg/dL (8.5-10.1); CARBON DIOXIDE 20.1 mmol/L (21-32); CHOL/HDL RATIO 6.6 (0.0-5.0); COR CA(FOR HYPOALB) 9.2 mg/dL (8.5-10.1); CREATININE 3.36 mg/dL (0.55-1.02); TOTAL PROTEIN 6.7 g/dL (6.4-8.2)
[2022-07-06] MEDS: CARDIZEM CD 180 MG 24-HR PO SCH (08:27)
[2022-07-06] MEDS: INVanz INJ 1 GRAM VIAL 0.5 G in NS 50 ML IV 50 ML IV SCH (08:27)
[2022-07-06] MEDS: LANOXIN PO SCH (08:27)
[2022-07-06] MEDS: PROTONIX INJ 40 MG VIAL IVP SCH (08:29)
[2022-07-06] MEDS: ZOLOFT PO SCH (08:29)
[2022-07-06] MEDS: PLAVIX PO SCH (08:29)
[2022-07-06] MEDS: FLONASE NASAL SPRAY ENOSTRIL SCH (08:39)
[2022-07-06] MEDS ORDERED: LOVENOX INJ 30 MG SYR SC SCH (09:00)
[2022-07-06] MEDS: PHENERGAN INJ 25 MG IM PRN (15:29)
--- NOTE | 2022-07-06 18:17 | PCM.PROG ---
Progress Note - Progress Note for Day of Date of Exam: 07/06/22 - Subjective Subjective: PT IS 61 WF ADMITTED WITH HYPERTENSIVE URGENCY AND HISTORY OF UNCONTROLLED, CAD AND RENAL DISEASE. PT HAS RECENTLY BEEN UNDER THE CARE OF DR MANZANO AND REPORTS SHE HAD UTI, CULTURE REVIEWED AND PT STARTED ON IV ATBX ON ADMISSION WITH BLOOD AND URINE CULTURES PENDING. PT WAS COVID POSITIVE WITHOUT RESP DISTRESS AND PT DENIES ANY KNOWN FEVER. PT HAS HAD NAUSEA AND VOMITING. SHE IS ON PPI THERAPY AND GENTLE IV HYDRATION WITH STRICT I&OS PRN PAIN AND NAUSEA MEDICATION ORDERED. PT BP ELEVATED THIS MORING WITH USE OF IV HYDRALAZINE SINCE ADMISSION. PT STATES "I CANNOT TAKE A BETABLOCKER". PT STARTED ON HYDRALAZINE 10MG PO TID AND WE WILL CONTINUE BP AND CARDIAC MONITORING. PT CHEST XRAY WITHOUT PNEUMONIA OR EFFUSIONS. PLAN TO REPEAT AM LABS AND PRN RESP THERAPY. PT ADMITS THIS MORNING SHE IS FEELING BETTER BUT CONTINUED NAUSEA - Past Medical Family Social History Past Med/Fam/Surg Hx: No changes since H&P Allergies: Allergies ceftriaxone [From Rocephin] Allergy (Verified 05/03/22 16:52) dicyclomine [From Bentyl] Allergy (Verified 05/03/22 16:52) ketorolac [From Toradol] Allergy (Verified 05/03/22 16:52) metoclopramide [From Reglan] Allergy (Verified 05/03/22 16:52) nalbuphine [From Nubain] Allergy (Verified 05/03/22 16:52) prochlorperazine [From Compazine] Allergy (Verified 05/03/22 16:52) - Review of Systems ROS: No change since H&P - Vital Signs and I&O's Vital Signs: Temperature 98.2 F Pulse Rate [Left Brachial] 80 Pulse Rate 90 Respiratory Rate 18 Blood Pressure [Right Arm] 168/71 Blood Pressure [Left Arm] 176/75 Blood Pressure 176/97 O2 Sat by Pulse Oximetry 94 Intake and Output: Intake & Output 07/04/22 07/05/22 07/06/22 07/07/22 11:59 11:59 11:59 11:59 Intake Total 2196 1494 / 1494 Balance 2196 1494 / 1494 - Physical Exam Oriented: Normal Eyes: Normal Ear: Normal Nose: Normal Throat: Normal Respiratory: Diminished Cardiovascular: Normal : Normal Auscultation: Bowel Sounds: Normal Tenderness: Epigastric, Mild Skin: Decreased Turgur Musculoskeletal: Normal Psychiatric: Anxiety Affect: Anxious Speech Pattern: Clear, Appropriate - Laboratory and Diagnostics Result Diagrams: 07/06/22 05:37 07/06/22 05:37 Labs: 07/05/22 13:50 Urine,Clean Catch Urine Culture - Final Laboratory WBC 8.3 X10^3/uL (3.6-10.0) 07/06/22 05:37 RBC 3.23 X10^6/uL (3.5-5.4) L 07/06/22 05:37 Hgb 8.7 g/dL (12.0-16.0) L 07/06/22 05:37 Hct 25.2 % (36.0-47.0) L 07/06/22 05:37 MCV 77.9 fL (80.0-100.0) L 07/06/22 05:37 MCH 27.0 pg (27.0-34.0) 07/06/22 05:37 MCHC 34.7 g/dL (33.0-35.0) 07/06/22 05:37 RDW 15.7 % (11.6-16.5) 07/06/22 05:37 Plt Count 270 X10^3/uL (150.0-450.0) 07/06/22 05:37 MPV 8.2 fL (7.4-11.0) 07/06/22 05:37 Neut % (Auto) 81.9 % (42.0-75.0) H 07/06/22 05:37 Lymph % (Auto) 12.6 % (21.0-51.0) L 07/06/22 05:37 [place] % (Auto) 4.1 % (0.0-13.0) 07/06/22 05:37 Eos % (Auto) 0.5 % (0.9-2.9) L 07/06/22 05:37 Baso % (Auto) 0.9 % (0.2-1.0) 07/06/22 05:37 Neut # (Auto) 6.8 x10^3/uL (2.2-4.8) H 07/06/22 05:37 Lymph # (Auto) 1.1 X10^3/uL (1.3-2.9) L 07/06/22 05:37 [place] # (Auto) 0.3 x10^3/uL (0.3-0.8) 07/06/22 05:37 Eos # (Auto) 0.0 x10^3/uL (0.0-0.2) 07/06/22 05:37 Baso # (Auto) 0.1 X10^3/uL (0.0-0.1) 07/06/22 05:37 Absolute Nucleated RBC 0.0 /100WBC 07/06/22 05:37 D-Dimer 0.87 ug/ml (0.0-0.57) H 07/05/22 10:50 Sample Site Lrad 07/05/22 13:25 ABG pH 7.450 (7.35-7.45) 07/05/22 13:25 ABG pCO2 27.0 mmHg (35.0-45.0) L 07/05/22 13:25 ABG pO2 153.0 mmHg (80.0-100.0) H 07/05/22 13:25 ABG HCO3 18.8 mmol/L (22-26) L 07/05/22 13:25 ABG O2 Saturation 99.0 % (90-100) 07/05/22 13:25 ABG Base Excess -3.9 mmol/L (-2.0-2.0) L 07/05/22 13:25 Nathan Test Pos 07/05/22 13:25 A-a Gradient -37.0 mmHg 07/05/22 13:25 FiO2 21.0 07/05/22 13:25 Blood Gas Comments Thomas well ms/eb 07/05/22 13:25 Sodium 140 mmol/L (136-145) 07/06/22 05:37 Corrected Sodium 141 mmol/L (136-145) 07/06/22 05:37 Potassium 4.0 mmol/L (3.5-5.1) 07/06/22 05:37 Chloride 110 mmol/L (98-107) H 07/06/22 05:37 Carbon Dioxide 20.1 mmol/L (21-32) L 07/06/22 05:37 BUN 39 mg/dL (7-18) H 07/06/22 05:37 Creatinine 3.36 mg/dL (0.55-1.02) H 07/06/22 05:37 Est GFR (MDRD) Af Amer 18 (>60) L 07/06/22 05:37 Est GFR (MDRD) Non-Af 15 (>60) L 07/06/22 05:37 Glucose 129 mg/dL (65-99) H 07/06/22 05:37 POC Glucose (mg/dL) 98 mg/dL (65-99) 07/06/22 15:32 Lactic Acid < 0.3 mmol/L (0.4-2.0) L 07/05/22 10:50 Calcium 7.8 mg/dL (8.5-10.1) L 07/06/22 05:37 Corrected Calcium 9.2 mg/dL (8.5-10.1) 07/06/22 05:37 Magnesium 1.8 mg/dL (1.7-2.9) 07/05/22 10:50 Total Bilirubin 0.20 mg/dL (0.2-1.0) 07/06/22 05:37 AST 22 Units/L (15-37) 07/06/22 05:37 ALT 33 Units/L (12-78) 07/06/22 05:37 Alkaline Phosphatase 112 Units/L (46-116) 07/06/22 05:37 Creatine Kinase 167 Units/L (26-192) 07/05/22 10:50 Troponin I High Sens 13.9 ng/L (4.0-60.0) 07/05/22 10:50 B-Natriuretic Peptide 276 pg/mL (0-79) H 07/06/22 05:37 Total Protein 6.7 g/dL (6.4-8.2) 07/06/22 05:37 Albumin 2.3 g/dL (3.4-5.0) L 07/06/22 05:37 Globulin 4.4 g/dL (2.5-4.5) 07/06/22 05:37 Albumin/Globulin Ratio 0.5 Ratio (1.1-2.1) L 07/06/22 05:37 Triglycerides 276 mg/dL (0-150) H 07/06/22 05:37 Cholesterol 192 mg/dL (0-200) 07/06/22 05:37 LDL Cholesterol, Calc 108 mg/dL (0-100) H 07/06/22 05:37 HDL Cholesterol 29 mg/dL (40-60) L 07/06/22 05:37 Cholesterol/HDL Ratio 6.6 (0.0-5.0) H 07/06/22 05:37 Specimen Type Clean catch urine 07/05/22 13:50 Urine Color Straw (YELLOW) 07/05/22 13:50 Urine Appearance Cloudy (CLEAR) 07/05/22 13:50 Urine pH 6.5 (5.0 - 8.0) 07/05/22 13:50 Ur Specific [place] 1.015 (1.000-1.030) 07/05/22 13:50 Urine Protein 4+ (NEGATIVE) 07/05/22 13:50 Urine Glucose (UA) 3+ (NEGATIVE) 07/05/22 13:50 Urine Ketones Negative (NEGATIVE) 07/05/22 13:50 Urine Blood 2+ (NEGATIVE) 07/05/22 13:50 Urine Nitrite Negative (NEGATIVE) 07/05/22 13:50 Urine Bilirubin Negative (NEGATIVE) 07/05/22 13:50 Urine Urobilinogen Normal (NORMAL) 07/05/22 13:50 Ur Leukocyte Esterase 2+ (NEGATIVE) 07/05/22 13:50 Urine RBC 0-2 /HPF (0-3) 07/05/22 13:50 Urine WBC 10-20 /HPF (0-5) A 07/05/22 13:50 Ur Squamous Epith Cells Rare /HPF (NEGATIVE) 07/05/22 13:50 Amorphous Sediment 1+ /HPF (NEGATIVE) 07/05/22 13:50 Urine Bacteria Trace /HPF (NEGATIVE) 07/05/22 13:50 Ur Culture Indicated? Yes/culture set up 07/05/22 13:50 Digoxin 1.96 ng/mL (0.9-2) 07/06/22 05:37 Urine Opiates Screen Negative (NEG=<300) 07/05/22 13:50 Urine Methadone Screen Negative (NEG=<300) 07/05/22 13:50 Ur Barbiturates Screen Negative (NEG=<200) 07/05/22 13:50 Ur Phencyclidine Scrn Negative (NEG=<25) 07/05/22 13:50 Ur Amphetamines Screen Negative (NEG=<1000) 07/05/22 13:50 U Benzodiazepines Scrn Negative (NEG=<200) 07/05/22 13:50 Urine Cocaine Screen Negative (NEG=<300) 07/05/22 13:50 U Marijuana (THC) Screen Negative (NEG=<50) 07/05/22 13:50 SARS-CoV-2 (PCR) Positive (NEGATIVE) A 07/05/22 12:00 - Plan (1) Hypertensive urgency Status: Acute Plan: SERIAL CE AND EKG. BP CONTROL, BS CONTROL. BLOOD AND URINE CULTURE. GENTLE IV HYDRATION, STRICT I&OS. ABG, D DIMER ON ADMISSION. VERIFY HOME MEDICATION, IV ATBX THERAPY (2) COVID Status: Acute (3) CAD (coronary artery disease) Status: Acute (4) UTI (urinary tract infection) Status: Acute Qualifiers: Urinary tract infection type: site unspecified Hematuria presence: without hematuria Qualified Code(s): N39.0 - Urinary tract infection, site not specified (5) Diabetic neuropathy Status: Chronic (6) GERD (gastroesophageal reflux disease) Status: Chronic (7) History of CHF (congestive heart failure) Status: Chronic (8) Acute on chronic renal failure Status: Acute
[2022-07-06] MEDS: SNACK - Diabetic Appropriate PO SCH (20:45)
[2022-07-06] MEDS: ZANAFLEX PO SCH (21:14)
[2022-07-06] MEDS: COLACE CAP 100 MG PO SCH (21:15)
[2022-07-06] MEDS: LIPITOR TAB 40 MG PO SCH (21:15)
[2022-07-06] MEDS: APRESOLINE TAB 10 MG PO SCH (21:23)
[2022-07-07] MEDS: ZOFRAN INJ 4 MG VIAL IVP PRN ×2 (03:39→11:19)
[2022-07-07] MEDS: NORCO 5/325 MG TAB PO PRN ×3 (03:39→19:20)
[2022-07-07] MEDS: APRESOLINE TAB 10 MG PO SCH ×3 (05:40→21:18)
--- NOTE | 2022-07-07 06:27 | RAD ---
HISTORYCOPDSTUDYChest AP [id number]/29/2022FINDINGSHeart size is normal. Iliana are normal. Lungs are well inflated and free of acute infiltrates. There is a question of a right-sided perihilar cavitary lesion. This could represent a real finding or could be due to a confluence of vascular shadows. Chest CT with contrast is recommended for further evaluation. No pleural effusions are identified. Bony thorax is unremarkable.IMPRESSIONNo acute infiltratesQuestion cavitary lesion in the right perihilar region which could be a real finding or could be due to a confluence of vascular shadows. CHEST CT WITH CONTRAST is recommended for further evaluation.Electronically signed by: UNIQUE HENAO (Jul 07, 2022 06:25:10)
[2022-07-07 06:29] LABS: BASOPHILS # (AUTO) 0.1 X10^3/uL (0.0-0.1); BASOPHILS % (AUTO) 1.2 % (0.2-1.0); EOSINOPHILS # (AUTO) 0.2 x10^3/uL (0.0-0.2); HEMATOCRIT 23.1 % (36.0-47.0); HEMOGLOBIN 7.9 g/dL (12.0-16.0); LYMPHOCYTES # (AUTO) 1.9 X10^3/uL (1.3-2.9); LYMPHOCYTES % (AUTO) 22.9 % (21.0-51.0); MEAN CORPUSCULAR HEMOGLOBIN 26.9 pg (27.0-34.0); MEAN CORPUSCULAR VOLUME 79.2 fL (80.0-100.0); MEAN PLATELET VOLUME 8.1 fL (7.4-11.0); MONOCYTES # (AUTO) 0.4 x10^3/uL (0.3-0.8); MONOCYTES % (AUTO) 4.8 % (0.0-13.0); NEUTROPHILS # (AUTO) 5.9 x10^3/uL (2.2-4.8); NEUTROPHILS % (AUTO) 69.1 % (42.0-75.0); RED BLOOD COUNT 2.92 X10^6/uL (3.5-5.4); RED CELL DISTRIBUTION WIDTH 15.4 % (11.6-16.5); WHITE BLOOD COUNT 8.5 X10^3/uL (3.6-10.0)
[2022-07-07 06:36] LABS: ALANINE AMINOTRANSFERASE 30 Units/L (12-78); ALBUMIN 2.2 g/dL (3.4-5.0); ALKALINE PHOSPHATASE 103 Units/L (46-116); ASPARTATE AMINO TRANSFERASE 24 Units/L (15-37); BLOOD UREA NITROGEN 36 mg/dL (7-18); CALCIUM 7.7 mg/dL (8.5-10.1); CARBON DIOXIDE 21.9 mmol/L (21-32); CHLORIDE 109 mmol/L (98-107); COR CA(FOR HYPOALB) 9.1 mg/dL (8.5-10.1); SODIUM 140 mmol/L (136-145); TOTAL PROTEIN 6.3 g/dL (6.4-8.2); eGFR NON BLACK RACES 15 (>60)
[2022-07-07] MEDS: NS 1,000 ML IV 1,000 ML IV SCH ×3 (07:43→19:11)
[2022-07-07] MEDS: FLONASE NASAL SPRAY ENOSTRIL SCH (08:49)
[2022-07-07] MEDS: CARDIZEM CD 180 MG 24-HR PO SCH (08:49)
[2022-07-07] MEDS: PLAVIX PO SCH (08:50)
[2022-07-07] MEDS: INVanz INJ 1 GRAM VIAL 0.5 G in NS 50 ML IV 50 ML IV SCH (08:50)
[2022-07-07] MEDS: LANOXIN PO SCH (08:50)
[2022-07-07] MEDS: PROTONIX INJ 40 MG VIAL IVP SCH (08:51)
[2022-07-07] MEDS: ZOLOFT PO SCH (08:51)
[2022-07-07] MEDS ORDERED: APLISOL ID ONE (10:37)
[2022-07-07] MEDS: ZITHROMAX INJ 500 MG VIAL 500 MG in NS 250 ML IV 250 ML IV SCH (10:54)
[2022-07-07] MEDS: HEMOCYTE-PLUS PO SCH (10:54)
[2022-07-07] MEDS ORDERED: CARDIZEM CD 120 MG 24-HR PO ONE (11:28)
[2022-07-07] MEDS: APRESOLINE INJ 20 MG VIAL IVP PRN (11:47)
[2022-07-07] MEDS: PHENERGAN INJ 25 MG IM PRN (13:33)
[2022-07-07] MEDS: LIPITOR TAB 40 MG PO SCH (20:32)
[2022-07-07] MEDS: SNACK - Diabetic Appropriate PO SCH (20:32)
[2022-07-07] MEDS: COLACE CAP 100 MG PO SCH (20:32)
[2022-07-07] MEDS: ZANAFLEX PO SCH (20:33)
[2022-07-08] MEDS: PHENERGAN INJ 25 MG IM PRN (01:40)
[2022-07-08] MEDS: NORCO 5/325 MG TAB PO PRN ×3 (03:43→19:09)
[2022-07-08] MEDS: APRESOLINE INJ 20 MG VIAL IVP PRN ×3 (04:15→22:10)
[2022-07-08] MEDS ORDERED: CATAPRES TAB 0.1 MG PO ONE (04:30)
[2022-07-08] MEDS: NS 1,000 ML IV 1,000 ML IV SCH ×2 (04:30→08:29)
[2022-07-08] MEDS: APRESOLINE TAB 10 MG PO SCH ×3 (05:36→20:59)
[2022-07-08 05:42] LABS: HEMATOCRIT 22.2 % (36.0-47.0); HEMOGLOBIN 7.7 g/dL (12.0-16.0); MEAN CORPUSCULAR VOLUME 79.3 fL (80.0-100.0); MEAN PLATELET VOLUME 7.8 fL (7.4-11.0)
[2022-07-08 05:45] LABS: BASOPHILS # (AUTO) 0.1 X10^3/uL (0.0-0.1); BASOPHILS % (AUTO) 1.2 % (0.2-1.0); EOSINOPHILS # (AUTO) 0.2 x10^3/uL (0.0-0.2); EOSINOPHILS % (AUTO) 1.9 % (0.9-2.9); LYMPHOCYTES # (AUTO) 1.5 X10^3/uL (1.3-2.9); LYMPHOCYTES % (AUTO) 18.1 % (21.0-51.0); MEAN CORPUSCULAR HEMOGLOBIN 27.6 pg (27.0-34.0); MEAN CORPUSCULAR HGB CONC 34.8 g/dL (33.0-35.0); MONOCYTES # (AUTO) 0.4 x10^3/uL (0.3-0.8); MONOCYTES % (AUTO) 4.9 % (0.0-13.0); NEUTROPHILS # (AUTO) 5.9 x10^3/uL (2.2-4.8); NEUTROPHILS % (AUTO) 73.9 % (42.0-75.0); RED CELL DISTRIBUTION WIDTH 15.4 % (11.6-16.5)
[2022-07-08 05:49] LABS: ALBUMIN 2.2 g/dL (3.4-5.0); CALCIUM 7.4 mg/dL (8.5-10.1); CARBON DIOXIDE 20.2 mmol/L (21-32); COR CA(FOR HYPOALB) 8.8 mg/dL (8.5-10.1); CREATININE 3.34 mg/dL (0.55-1.02); TOTAL PROTEIN 6.2 g/dL (6.4-8.2)
--- NOTE | 2022-07-08 07:45 | RAD ---
HISTORYhypertensive urgency covid positive hx of lung lesion on previous imagingSTUDYCHEST, PA/LAT [id number]/30/2022FINDINGSLINES AND TUBES: NoneHEART/ PULMONARY VASCULATURE: No significant abnormalityLUNGS/ PLEURA: There is unchanged perihilar prominence of bronchial wall thickening. Previously question cavitary lesion in the right hilar region is less conspicuous on current study.IMPRESSIONNo acute infiltrate. Previously questioned right perihilar cavitary lesion is less conspicuous on current study. Continued follow-up suggested.Electronically signed by: Narinder Fernández (Jul 08, 2022 07:44:01)
[2022-07-08] MEDS: CARDIZEM CD 240 MG 24-HR PO SCH (08:27)
[2022-07-08] MEDS: LANOXIN PO SCH (08:28)
[2022-07-08] MEDS: HEMOCYTE-PLUS PO SCH (08:28)
[2022-07-08] MEDS: FLONASE NASAL SPRAY ENOSTRIL SCH (08:28)
[2022-07-08] MEDS: PLAVIX PO SCH (08:29)
[2022-07-08] MEDS: ZITHROMAX INJ 500 MG VIAL 500 MG in NS 250 ML IV 250 ML IV SCH (08:30)
[2022-07-08] MEDS: PROTONIX INJ 40 MG VIAL IVP SCH (08:30)
[2022-07-08] MEDS: ZOLOFT PO SCH (08:30)
[2022-07-08] MEDS: CATAPRES-TTS-2 TD SCH (10:22)
[2022-07-08] MEDS: ZOFRAN INJ 4 MG VIAL IVP PRN ×2 (10:32→19:09)
--- NOTE | 2022-07-08 18:13 | PCM.PROG ---
Progress Note Progress Note for Day of Date of Exam: 07/08/22 Subjective Subjective: PT IS 61 WF ADMITTED WITH HYPERTENSIVE URGENCY AND HISTORY OF UNCONTROLLED, CAD AND RENAL DISEASE. PT HAS RECENTLY BEEN UNDER THE CARE OF DR MANZANO AND REPORTS SHE HAD UTI, CULTURE REVIEWED AND PT STARTED ON IV ATBX ON ADMISSION WITH BLOOD AND URINE CULTURES PENDING. PT WAS COVID POSITIVE WITHOUT RESP DISTRESS AND PT DENIES ANY KNOWN FEVER. PT HAS HAD NAUSEA AND VOMITING. SHE IS ON PPI THERAPY AND GENTLE IV HYDRATION WITH STRICT I&OS PRN PAIN AND NAUSEA MEDICATION ORDERED. PT BP ELEVATED THIS MORING WITH USE OF IV HYDRALAZINE SINCE ADMISSION. PT STATES "I CANNOT TAKE A BETABLOCKER". PT STARTED ON HYDRALAZINE 10MG PO TID AND WE WILL CONTINUE BP AND CARDIAC MONITORING. PT CHEST XRAY WITHOUT PNEUMONIA OR EFFUSIONS. PLAN TO REPEAT AM LABS AND PRN RESP THERAPY. PT ADMITS THIS MORNING SHE IS FEELING BETTER BUT CONTINUED NAUSEA Sunday, 08 July 2022 Patient is resting comfortably this morning with no new complaints. There was concern regarding her chest x-ray which showed a possible perihilar cavitary lesion. She was sent to [facility] in [place], [place] today for CT scan of the chest without contrast. He did not show any cavitary lesions suspicious for TB. Also the chest x-ray today was less convincing showing a cavitary lesion. Her kidney function is improved compared to yesterday. She does have stage IV chronic kidney disease. Her COVID infection seems to be improving regarding her symptoms as well as her UTI symptoms as well. Continue current treatment no change Past Medical Family Social History Past Med/Fam/Surg Hx: No changes since H&P Allergies: Allergies ceftriaxone [From Rocephin] Allergy (Verified 05/03/22 16:52) dicyclomine [From Bentyl] Allergy (Verified 05/03/22 16:52) ketorolac [From Toradol] Allergy (Verified 05/03/22 16:52) metoclopramide [From Reglan] Allergy (Verified 05/03/22 16:52) nalbuphine [From Nubain] Allergy (Verified 05/03/22 16:52) prochlorperazine [From Compazine] Allergy (Verified 05/03/22 16:52) Review of Systems ROS: No change since H&P Vital Signs and I&O's Vital Signs: Temperature 98.9 F Pulse Rate [Left Brachial] 69 Pulse Rate 74 Respiratory Rate 18 Blood Pressure [Right Arm] 171/73 Blood Pressure [Left Arm] 166/75 Blood Pressure 167/72 O2 Sat by Pulse Oximetry 98 Intake and Output: Intake & Output 07/06/22 07/07/22 07/08/22 07/09/22 11:59 11:59 11:59 11:59 Intake Total 2196 / 7 3062 / 3062 2268 / 2268 1408 / 1408 Balance 2196 / 2196 3062 / 3062 2268 / 2268 1408 / 1408 Physical Exam Oriented: Normal Eyes: Normal Ear: Normal Nose: Normal Throat: Normal Respiratory: Diminished Cardiovascular: Normal : Normal Auscultation: Bowel Sounds: Normal Tenderness: Epigastric and Mild Skin: Decreased Turgur Musculoskeletal: Normal Psychiatric: Anxiety Affect: Anxious Speech Pattern: Clear and Appropriate Laboratory and Diagnostics Result Diagrams: 07/08/22 05:19 07/08/22 05:19 Labs: 07/06/22 15:50 Urine,Clean Catch Urine Culture - Final 07/05/22 11:13 Blood Blood Culture - Preliminary 07/05/22 10:50 Blood Blood Culture - Preliminary 07/05/22 13:50 Urine,Clean Catch Urine Culture - Final Laboratory WBC 8.0 X10^3/uL (3.6-10.0) 07/08/22 05:19 RBC 2.80 X10^6/uL (3.5-5.4) L 07/08/22 05:19 Hgb 7.7 g/dL (12.0-16.0) L 07/08/22 05:19 Hct 22.2 % (36.0-47.0) L 07/08/22 05:19 MCV 79.3 fL (80.0-100.0) L 07/08/22 05:19 MCH 27.6 pg (27.0-34.0) 07/08/22 05:19 MCHC 34.8 g/dL (33.0-35.0) 07/08/22 05:19 RDW 15.4 % (11.6-16.5) 07/08/22 05:19 Plt Count 212 X10^3/uL (150.0-450.0) 07/08/22 05:19 MPV 7.8 fL (7.4-11.0) 07/08/22 05:19 Neut % (Auto) 73.9 % (42.0-75.0) 07/08/22 05:19 Lymph % (Auto) 18.1 % (21.0-51.0) L 07/08/22 05:19 [place] % (Auto) 4.9 % (0.0-13.0) 07/08/22 05:19 Eos % (Auto) 1.9 % (0.9-2.9) 07/08/22 05:19 Baso % (Auto) 1.2 % (0.2-1.0) H 07/08/22 05:19 Neut # (Auto) 5.9 x10^3/uL (2.2-4.8) H 07/08/22 05:19 Lymph # (Auto) 1.5 X10^3/uL (1.3-2.9) 07/08/22 05:19 [place] # (Auto) 0.4 x10^3/uL (0.3-0.8) 07/08/22 05:19 Eos # (Auto) 0.2 x10^3/uL (0.0-0.2) 07/08/22 05:19 Baso # (Auto) 0.1 X10^3/uL (0.0-0.1) 07/08/22 05:19 Absolute Nucleated RBC 0.0 /100WBC 07/08/22 05:19 D-Dimer 0.87 ug/ml (0.0-0.57) H 07/05/22 10:50 Sample Site Lrad 07/05/22 13:25 ABG pH 7.450 (7.35-7.45) 07/05/22 13:25 ABG pCO2 27.0 mmHg (35.0-45.0) L 07/05/22 13:25 ABG pO2 153.0 mmHg (80.0-100.0) H 07/05/22 13:25 ABG HCO3 18.8 mmol/L (22-26) L 07/05/22 13:25 ABG O2 Saturation 99.0 % (90-100) 07/05/22 13:25 ABG Base Excess -3.9 mmol/L (-2.0-2.0) L 07/05/22 13:25 Nathan Test Pos 07/05/22 13:25 A-a Gradient -37.0 mmHg 07/05/22 13:25 FiO2 21.0 07/05/22 13:25 Blood Gas Comments Thomas well ms/eb 07/05/22 13:25 Sodium 138 mmol/L (136-145) 07/08/22 05:19 Corrected Sodium 141 mmol/L (136-145) 07/08/22 05:19 Potassium 4.4 mmol/L (3.5-5.1) 07/08/22 05:19 Chloride 109 mmol/L (98-107) H 07/08/22 05:19 Carbon Dioxide 20.2 mmol/L (21-32) L 07/08/22 05:19 BUN 35 mg/dL (7-18) H 07/08/22 05:19 Creatinine 3.34 mg/dL (0.55-1.02) H 07/08/22 05:19 Est GFR (MDRD) Af Amer 18 (>60) L 07/08/22 05:19 Est GFR (MDRD) Non-Af 15 (>60) L 07/08/22 05:19 Glucose 241 mg/dL (65-99) H 07/08/22 05:19 POC Glucose (mg/dL) 106 mg/dL (65-99) H 07/08/22 16:53 Lactic Acid < 0.3 mmol/L (0.4-2.0) L 07/05/22 10:50 Calcium 7.4 mg/dL (8.5-10.1) L 07/08/22 05:19 Corrected Calcium 8.8 mg/dL (8.5-10.1) 07/08/22 05:19 Magnesium 1.8 mg/dL (1.7-2.9) 07/05/22 10:50 Iron 48 ug/dL (50-175) L 07/06/22 05:37 Transferrin 185 mg/dL (202-364) L 07/06/22 05:37 Ferritin 76 ng/mL (8-252) 07/06/22 05:37 Total Bilirubin 0.20 mg/dL (0.2-1.0) 07/08/22 05:19 AST 20 Units/L (15-37) 10/01/22 05:19 ALT 23 Units/L (12-78) 07/08/22 05:19 Alkaline Phosphatase 93 Units/L (46-116) 07/08/22 05:19 Creatine Kinase 167 Units/L (26-192) 07/05/22 10:50 Troponin I High Sens 13.9 ng/L (4.0-60.0) 07/05/22 10:50 B-Natriuretic Peptide 250 pg/mL (0-79) H 07/07/22 05:30 Total Protein 6.2 g/dL (6.4-8.2) L 07/08/22 05:19 Albumin 2.2 g/dL (3.4-5.0) L 07/08/22 05:19 Globulin 4.0 g/dL (2.5-4.5) 07/08/22 05:19 Albumin/Globulin Ratio 0.6 Ratio (1.1-2.1) L 07/08/22 05:19 Triglycerides 276 mg/dL (0-150) H 07/06/22 05:37 Cholesterol 192 mg/dL (0-200) 07/06/22 05:37 LDL Cholesterol, Calc 108 mg/dL (0-100) H 07/06/22 05:37 HDL Cholesterol 29 mg/dL (40-60) L 07/06/22 05:37 Cholesterol/HDL Ratio 6.6 (0.0-5.0) H 07/06/22 05:37 Vitamin B12 621 pg/mL (193-986) 07/06/22 05:37 Folate 11.7 ng/mL (>8.6) 07/06/22 05:37 Specimen Type Clean catch urine 07/05/22 13:50 Urine Color Straw (YELLOW) 07/05/22 13:50 Urine Appearance Cloudy (CLEAR) 07/05/22 13:50 Urine pH 6.5 (5.0 - 8.0) 07/05/22 13:50 Ur Specific [place] 1.015 (1.000-1.030) 07/05/22 13:50 Urine Protein 4+ (NEGATIVE) 07/05/22 13:50 Urine Glucose (UA) 3+ (NEGATIVE) 07/05/22 13:50 Urine Ketones Negative (NEGATIVE) 07/05/22 13:50 Urine Blood 2+ (NEGATIVE) 07/05/22 13:50 Urine Nitrite Negative (NEGATIVE) 07/05/22 13:50 Urine Bilirubin Negative (NEGATIVE) 07/05/22 13:50 Urine Urobilinogen Normal (NORMAL) 07/05/22 13:50 Ur Leukocyte Esterase 2+ (NEGATIVE) 07/05/22 13:50 Urine RBC 0-2 /HPF (0-3) 07/05/22 13:50 Urine WBC 10-20 /HPF (0-5) A 07/05/22 13:50 Ur Squamous Epith Cells Rare /HPF (NEGATIVE) 07/05/22 13:50 Amorphous Sediment 1+ /HPF (NEGATIVE) 07/05/22 13:50 Urine Bacteria Trace /HPF (NEGATIVE) 07/05/22 13:50 Ur Culture Indicated? Yes/culture set up 07/05/22 13:50 Digoxin 1.96 ng/mL (0.9-2) 07/06/22 05:37 Urine Opiates Screen Negative (NEG=<300) 07/05/22 13:50 Urine Methadone Screen Negative (NEG=<300) 07/05/22 13:50 Ur Barbiturates Screen Negative (NEG=<200) 07/05/22 13:50 Ur Phencyclidine Scrn Negative (NEG=<25) 07/05/22 13:50 Ur Amphetamines Screen Negative (NEG=<1000) 07/05/22 13:50 U Benzodiazepines Scrn Negative (NEG=<200) 07/05/22 13:50 Urine Cocaine Screen Negative (NEG=<300) 07/05/22 13:50 U Marijuana (THC) Screen Negative (NEG=<50) 07/05/22 13:50 SARS-CoV-2 (PCR) Positive (NEGATIVE) A 07/05/22 12:00 Plan (1) Hypertensive urgency: Status: Acute Plan: SERIAL CE AND EKG BP CONTROL, BS CONTROL BLOOD AND URINE CULTURE GENTLE IV HYDRATION, STRICT I&OS ABG, D DIMER ON ADMISSION VERIFY HOME MEDICATION, IV ATBX THERAPY (2) COVID: Status: Acute (3) CAD (coronary artery disease): Status: Acute (4) UTI (urinary tract infection): Status: Acute Qualifiers: Urinary tract infection type: site unspecified Hematuria presence: without hematuria Qualified Code(s): N39.0 - Urinary tract infection, site not specified (5) Diabetic neuropathy: Status: Chronic (6) GERD (gastroesophageal reflux disease): Status: Chronic (7) History of CHF (congestive heart failure): Status: Chronic (8) Acute on chronic renal failure: Status: Acute
[2022-07-08] MEDS: LIPITOR TAB 40 MG PO SCH (20:55)
[2022-07-08] MEDS: ZANAFLEX PO SCH (20:55)
[2022-07-08] MEDS: SNACK - Diabetic Appropriate PO SCH (20:56)
[2022-07-08] MEDS: COLACE CAP 100 MG PO SCH (20:56)
[2022-07-08] MEDS: NovoLIN R (or HumuLIN R) SUBCUT PRN (20:58)
[2022-07-09] MEDS: APRESOLINE INJ 20 MG VIAL IVP PRN ×2 (03:59→22:16)
[2022-07-09] MEDS: ZOFRAN INJ 4 MG VIAL IVP PRN ×2 (04:03→12:22)
[2022-07-09] MEDS: NORCO 5/325 MG TAB PO PRN ×2 (04:04→20:50)
[2022-07-09 05:32] LABS: BASOPHILS # (AUTO) 0.1 X10^3/uL (0.0-0.1); BASOPHILS % (AUTO) 0.9 % (0.2-1.0); EOSINOPHILS # (AUTO) 0.2 x10^3/uL (0.0-0.2); EOSINOPHILS % (AUTO) 2.8 % (0.9-2.9); HEMATOCRIT 21.3 % (36.0-47.0); HEMOGLOBIN 7.5 g/dL (12.0-16.0); LYMPHOCYTES # (AUTO) 1.6 X10^3/uL (1.3-2.9); LYMPHOCYTES % (AUTO) 18.9 % (21.0-51.0); MEAN CORPUSCULAR HEMOGLOBIN 27.8 pg (27.0-34.0); MEAN CORPUSCULAR HGB CONC 34.9 g/dL (33.0-35.0); MEAN CORPUSCULAR VOLUME 79.5 fL (80.0-100.0); MEAN PLATELET VOLUME 8.2 fL (7.4-11.0); MONOCYTES # (AUTO) 0.5 x10^3/uL (0.3-0.8); MONOCYTES % (AUTO) 5.6 % (0.0-13.0); NEUTROPHILS % (AUTO) 71.8 % (42.0-75.0); RED BLOOD COUNT 2.68 X10^6/uL (3.5-5.4); RED CELL DISTRIBUTION WIDTH 15.1 % (11.6-16.5); WHITE BLOOD COUNT 8.4 X10^3/uL (3.6-10.0)
[2022-07-09] MEDS: APRESOLINE TAB 10 MG PO SCH (05:36)
[2022-07-09 05:42] LABS: ALBUMIN 2.3 g/dL (3.4-5.0); CALCIUM 7.5 mg/dL (8.5-10.1); CARBON DIOXIDE 18.9 mmol/L (21-32); COR CA(FOR HYPOALB) 8.9 mg/dL (8.5-10.1); CREATININE 3.22 mg/dL (0.55-1.02); TOTAL PROTEIN 6.2 g/dL (6.4-8.2)
[2022-07-09] MEDS: CARDIZEM CD 240 MG 24-HR PO SCH (08:31)
[2022-07-09] MEDS: HEMOCYTE-PLUS PO SCH (08:32)
[2022-07-09] MEDS: FLONASE NASAL SPRAY ENOSTRIL SCH (08:32)
[2022-07-09] MEDS: LANOXIN PO SCH (08:32)
[2022-07-09] MEDS: ZOLOFT PO SCH (08:33)
[2022-07-09] MEDS: PLAVIX PO SCH (08:33)
[2022-07-09] MEDS: PROTONIX INJ 40 MG VIAL IVP SCH ×2 (08:33→21:02)
[2022-07-09] MEDS: ZITHROMAX INJ 500 MG VIAL 500 MG in NS 250 ML IV 250 ML IV SCH (08:33)
[2022-07-09] MEDS: NS 1,000 ML IV 1,000 ML IV SCH ×2 (10:40→13:01)
[2022-07-09] MEDS: MORPHINE SULFATE INJ 2 MG INJ IVP PRN ×2 (10:50→15:50)
[2022-07-09] MEDS: APRESOLINE TAB 25 MG PO SCH ×3 (10:50→21:00)
[2022-07-09] MEDS: PHENERGAN INJ 25 MG IM PRN (15:50)
--- NOTE | 2022-07-09 17:01 | PCM.PROG ---
Progress Note Progress Note for Day of Date of Exam: 07/09/22 Subjective Subjective: PT IS 61 WF ADMITTED WITH HYPERTENSIVE URGENCY AND HISTORY OF UNCONTROLLED, CAD AND RENAL DISEASE. PT HAS RECENTLY BEEN UNDER THE CARE OF DR MANZANO AND REPORTS SHE HAD UTI, CULTURE REVIEWED AND PT STARTED ON IV ATBX ON ADMISSION WITH BLOOD AND URINE CULTURES PENDING. PT WAS COVID POSITIVE WITHOUT RESP DISTRESS AND PT DENIES ANY KNOWN FEVER. PT HAS HAD NAUSEA AND VOMITING. SHE IS ON PPI THERAPY AND GENTLE IV HYDRATION WITH STRICT I&OS PRN PAIN AND NAUSEA MEDICATION ORDERED. PT BP ELEVATED THIS MORING WITH USE OF IV HYDRALAZINE SINCE ADMISSION. PT STATES "I CANNOT TAKE A BETABLOCKER". PT STARTED ON HYDRALAZINE 10MG PO TID AND WE WILL CONTINUE BP AND CARDIAC MONITORING. PT CHEST XRAY WITHOUT PNEUMONIA OR EFFUSIONS. PLAN TO REPEAT AM LABS AND PRN RESP THERAPY. PT ADMITS THIS MORNING SHE IS FEELING BETTER BUT CONTINUED NAUSEA Sunday, 08 July 2022 Patient is resting comfortably this morning with no new complaints. There was concern regarding her chest x-ray which showed a possible perihilar cavitary lesion. She was sent to [facility] in [place], [place] today for CT scan of the chest without contrast. He did not show any cavitary lesions suspicious for TB. Also the chest x-ray today was less convincing showing a cavitary lesion. Her kidney function is improved compared to yesterday. She does have stage IV chronic kidney disease. Her COVID infection seems to be improving regarding her symptoms as well as her UTI symptoms as well. Continue current treatment no change. 09 July 2022 Patient reports increasing pain all over this morning. Also noted her blood pressure still not controlled after starting the clonidine patch 0.2 mg yesterday. Her hemoglobin has also dropped some more since yesterday. She is on GI protection with Protonix 40 mg IV daily. I will increase her Protonix to every 12 hours for better GI protection in case she is losing blood through the GI tract. I will increase her Apresoline from 10 mg 3 times daily to 25 mg 3 times daily to see if this gets her blood pressure under control. Past Medical Family Social History Past Med/Fam/Surg Hx: No changes since H&P Allergies: Allergies ceftriaxone [From Rocephin] Allergy (Verified 05/03/22 16:52) dicyclomine [From Bentyl] Allergy (Verified 05/03/22 16:52) ketorolac [From Toradol] Allergy (Verified 05/03/22 16:52) metoclopramide [From Reglan] Allergy (Verified 05/03/22 16:52) nalbuphine [From Nubain] Allergy (Verified 05/03/22 16:52) prochlorperazine [From Compazine] Allergy (Verified 05/03/22 16:52) Review of Systems ROS: No change since H&P Vital Signs and I&O's Vital Signs: Temperature 99.4 F Pulse Rate [Left Brachial] 73 Pulse Rate 89 Respiratory Rate 18 Blood Pressure [Right Arm] 179/80 Blood Pressure [Left Arm] 180/62 Blood Pressure 167/72 O2 Sat by Pulse Oximetry 98 Intake and Output: Intake & Output 07/07/22 07/08/22 07/09/22 07/10/22 11:59 11:59 11:59 11:59 Intake Total 3062 / 3062 2268 / 2268 5502 / 5502 550 / 550 Balance 3062 / 3062 2268 / 2268 5502 / 5502 550 / 550 Physical Exam Oriented: Normal Eyes: Normal Ear: Normal Nose: Normal Throat: Normal Respiratory: Diminished Cardiovascular: Normal : Normal Auscultation: Bowel Sounds: Normal Tenderness: Epigastric and Mild Skin: Decreased Turgur Musculoskeletal: Normal Psychiatric: Anxiety Affect: Anxious Speech Pattern: Clear and Appropriate Laboratory and Diagnostics Result Diagrams: 07/09/22 04:10 07/09/22 04:10 Labs: 07/06/22 15:50 Urine,Clean Catch Urine Culture - Final 07/05/22 11:13 Blood Blood Culture - Preliminary 07/05/22 10:50 Blood Blood Culture - Preliminary 07/05/22 13:50 Urine,Clean Catch Urine Culture - Final Laboratory WBC 8.4 X10^3/uL (3.6-10.0) 07/09/22 04:10 RBC 2.68 X10^6/uL (3.5-5.4) L 07/09/22 04:10 Hgb 7.5 g/dL (12.0-16.0) L 07/09/22 04:10 Hct 21.3 % (36.0-47.0) L 07/09/22 04:10 MCV 79.5 fL (80.0-100.0) L 07/09/22 04:10 MCH 27.8 pg (27.0-34.0) 07/09/22 04:10 MCHC 34.9 g/dL (33.0-35.0) 07/09/22 04:10 RDW 15.1 % (11.6-16.5) 07/09/22 04:10 Plt Count 200 X10^3/uL (150.0-450.0) 07/09/22 04:10 MPV 8.2 fL (7.4-11.0) 07/09/22 04:10 Neut % (Auto) 71.8 % (42.0-75.0) 07/09/22 04:10 Lymph % (Auto) 18.9 % (21.0-51.0) L 07/09/22 04:10 Bollinger % (Auto) 5.6 % (0.0-13.0) 07/09/22 04:10 Eos % (Auto) 2.8 % (0.9-2.9) 07/09/22 04:10 Baso % (Auto) 0.9 % (0.2-1.0) 07/09/22 04:10 Neut # (Auto) 6.0 x10^3/uL (2.2-4.8) H 07/09/22 04:10 Lymph # (Auto) 1.6 X10^3/uL (1.3-2.9) 07/09/22 04:10 Bollinger # (Auto) 0.5 x10^3/uL (0.3-0.8) 07/09/22 04:10 Eos # (Auto) 0.2 x10^3/uL (0.0-0.2) 07/09/22 04:10 Baso # (Auto) 0.1 X10^3/uL (0.0-0.1) 07/09/22 04:10 Absolute Nucleated RBC 0.0 /100WBC 07/09/22 04:10 D-Dimer 0.87 ug/ml (0.0-0.57) H 07/05/22 10:50 Sample Site Lrad 07/05/22 13:25 ABG pH 7.450 (7.35-7.45) 07/05/22 13:25 ABG pCO2 27.0 mmHg (35.0-45.0) L 07/05/22 13:25 ABG pO2 153.0 mmHg (80.0-100.0) H 07/05/22 13:25 ABG HCO3 18.8 mmol/L (22-26) L 07/05/22 13:25 ABG O2 Saturation 99.0 % (90-100) 07/05/22 13:25 ABG Base Excess -3.9 mmol/L (-2.0-2.0) L 07/05/22 13:25 Nathan Test Pos 07/05/22 13:25 A-a Gradient -37.0 mmHg 07/05/22 13:25 FiO2 21.0 07/05/22 13:25 Blood Gas Comments Thomas well ms/eb 07/05/22 13:25 Sodium 139 mmol/L (136-145) 07/09/22 04:10 Corrected Sodium 141 mmol/L (136-145) 07/09/22 04:10 Potassium 4.4 mmol/L (3.5-5.1) 07/09/22 04:10 Chloride 110 mmol/L (98-107) H 07/09/22 04:10 Carbon Dioxide 18.9 mmol/L (21-32) L 07/09/22 04:10 BUN 40 mg/dL (7-18) H 07/09/22 04:10 Creatinine 3.22 mg/dL (0.55-1.02) H 07/09/22 04:10 Est GFR (MDRD) Af Amer 19 (>60) L 07/09/22 04:10 Est GFR (MDRD) Non-Af 16 (>60) L 07/09/22 04:10 Glucose 169 mg/dL (65-99) H 07/09/22 04:10 POC Glucose (mg/dL) 148 mg/dL (65-99) H 07/09/22 16:26 Lactic Acid < 0.3 mmol/L (0.4-2.0) L 07/05/22 10:50 Calcium 7.5 mg/dL (8.5-10.1) L 07/09/22 04:10 Corrected Calcium 8.9 mg/dL (8.5-10.1) 07/09/22 04:10 Magnesium 1.8 mg/dL (1.7-2.9) 07/05/22 10:50 Iron 48 ug/dL (50-175) L 07/06/22 05:37 Transferrin 185 mg/dL (202-364) L 07/06/22 05:37 Ferritin 76 ng/mL (8-252) 07/06/22 05:37 Total Bilirubin 0.20 mg/dL (0.2-1.0) 07/09/22 04:10 AST 23 Units/L (15-37) 07/09/22 04:10 ALT 24 Units/L (12-78) 07/09/22 04:10 Alkaline Phosphatase 93 Units/L (46-116) 07/09/22 04:10 Creatine Kinase 167 Units/L (26-192) 07/05/22 10:50 Troponin I High Sens 13.9 ng/L (4.0-60.0) 07/05/22 10:50 B-Natriuretic Peptide 250 pg/mL (0-79) H 07/07/22 05:30 Total Protein 6.2 g/dL (6.4-8.2) L 07/09/22 04:10 Albumin 2.3 g/dL (3.4-5.0) L 07/09/22 04:10 Globulin 3.9 g/dL (2.5-4.5) 07/09/22 04:10 Albumin/Globulin Ratio 0.6 Ratio (1.1-2.1) L 07/09/22 04:10 Triglycerides 276 mg/dL (0-150) H 07/06/22 05:37 Cholesterol 192 mg/dL (0-200) 07/06/22 05:37 LDL Cholesterol, Calc 108 mg/dL (0-100) H 07/06/22 05:37 HDL Cholesterol 29 mg/dL (40-60) L 07/06/22 05:37 Cholesterol/HDL Ratio 6.6 (0.0-5.0) H 07/06/22 05:37 Vitamin B12 621 pg/mL (193-986) 07/06/22 05:37 Folate 11.7 ng/mL (>8.6) 07/06/22 05:37 Specimen Type Clean catch urine 07/05/22 13:50 Urine Color Straw (YELLOW) 07/05/22 13:50 Urine Appearance Cloudy (CLEAR) 07/05/22 13:50 Urine pH 6.5 (5.0 - 8.0) 07/05/22 13:50 Ur Specific [place] 1.015 (1.000-1.030) 07/05/22 13:50 Urine Protein 4+ (NEGATIVE) 07/05/22 13:50 Urine Glucose (UA) 3+ (NEGATIVE) 07/05/22 13:50 Urine Ketones Negative (NEGATIVE) 07/05/22 13:50 Urine Blood 2+ (NEGATIVE) 07/05/22 13:50 Urine Nitrite Negative (NEGATIVE) 07/05/22 13:50 Urine Bilirubin Negative (NEGATIVE) 07/05/22 13:50 Urine Urobilinogen Normal (NORMAL) 07/05/22 13:50 Ur Leukocyte Esterase 2+ (NEGATIVE) 07/05/22 13:50 Urine RBC 0-2 /HPF (0-3) 07/05/22 13:50 Urine WBC 10-20 /HPF (0-5) A 07/05/22 13:50 Ur Squamous Epith Cells Rare /HPF (NEGATIVE) 07/05/22 13:50 Amorphous Sediment 1+ /HPF (NEGATIVE) 07/05/22 13:50 Urine Bacteria Trace /HPF (NEGATIVE) 07/05/22 13:50 Ur Culture Indicated? Yes/culture set up 07/05/22 13:50 Digoxin 1.96 ng/mL (0.9-2) 07/06/22 05:37 Urine Opiates Screen Negative (NEG=<300) 07/05/22 13:50 Urine Methadone Screen Negative (NEG=<300) 07/05/22 13:50 Ur Barbiturates Screen Negative (NEG=<200) 07/05/22 13:50 Ur Phencyclidine Scrn Negative (NEG=<25) 07/05/22 13:50 Ur Amphetamines Screen Negative (NEG=<1000) 07/05/22 13:50 U Benzodiazepines Scrn Negative (NEG=<200) 07/05/22 13:50 Urine Cocaine Screen Negative (NEG=<300) 07/05/22 13:50 U Marijuana (THC) Screen Negative (NEG=<50) 07/05/22 13:50 SARS-CoV-2 (PCR) Positive (NEGATIVE) A 07/05/22 12:00 Plan (1) Hypertensive urgency: Status: Acute Plan: SERIAL CE AND EKG BP CONTROL, BS CONTROL BLOOD AND URINE CULTURE GENTLE IV HYDRATION, STRICT I&OS ABG, D DIMER ON ADMISSION VERIFY HOME MEDICATION, IV ATBX THERAPY (2) COVID: Status: Acute (3) CAD (coronary artery disease): Status: Acute (4) UTI (urinary tract infection): Status: Acute Qualifiers: Urinary tract infection type: site unspecified Hematuria presence: without hematuria Qualified Code(s): N39.0 - Urinary tract infection, site not specified (5) Diabetic neuropathy: Status: Chronic (6) GERD (gastroesophageal reflux disease): Status: Chronic (7) History of CHF (congestive heart failure): Status: Chronic (8) Acute on chronic renal failure: Status: Acute (9) Generalized pain: Status: Acute Plan: I will add as needed morphine sulfate for breakthrough pain. (10) Uncontrolled hypertension: Status: Acute Plan: Change Apresoline from 10 mg 3 times daily to 25 mg 3 times daily for better blood pressure control.
[2022-07-09] MEDS: ZANAFLEX PO SCH (20:49)
[2022-07-09] MEDS: LIPITOR TAB 40 MG PO SCH (20:49)
[2022-07-09] MEDS: COLACE CAP 100 MG PO SCH (21:01)
[2022-07-09] MEDS: SNACK - Diabetic Appropriate PO SCH (21:02)
[2022-07-09] MEDS: NovoLIN R (or HumuLIN R) SUBCUT PRN (21:02)
[2022-07-09] MEDS: CATAPRES-TTS-2 TD SCH (23:17)
[2022-07-10 05:02] LABS: BASOPHILS # (AUTO) 0.1 X10^3/uL (0.0-0.1); BASOPHILS % (AUTO) 0.8 % (0.2-1.0); EOSINOPHILS # (AUTO) 0.3 x10^3/uL (0.0-0.2); EOSINOPHILS % (AUTO) 3.2 % (0.9-2.9); HEMATOCRIT 22.4 % (36.0-47.0); HEMOGLOBIN 7.9 g/dL (12.0-16.0); LYMPHOCYTES # (AUTO) 2.1 X10^3/uL (1.3-2.9); MEAN CORPUSCULAR HEMOGLOBIN 28.1 pg (27.0-34.0); MEAN CORPUSCULAR HGB CONC 35.2 g/dL (33.0-35.0); MEAN CORPUSCULAR VOLUME 79.8 fL (80.0-100.0); MONOCYTES # (AUTO) 0.6 x10^3/uL (0.3-0.8); MONOCYTES % (AUTO) 5.7 % (0.0-13.0); NEUTROPHILS # (AUTO) 7.8 x10^3/uL (2.2-4.8); NEUTROPHILS % (AUTO) 71.3 % (42.0-75.0); RED BLOOD COUNT 2.81 X10^6/uL (3.5-5.4); RED CELL DISTRIBUTION WIDTH 15.6 % (11.6-16.5)
[2022-07-10 05:07] LABS: ALBUMIN 2.5 g/dL (3.4-5.0); CALCIUM 7.7 mg/dL (8.5-10.1); CARBON DIOXIDE 20.1 mmol/L (21-32); COR CA(FOR HYPOALB) 8.9 mg/dL (8.5-10.1); CREATININE 3.36 mg/dL (0.55-1.02); TOTAL PROTEIN 6.6 g/dL (6.4-8.2)
[2022-07-10] MEDS: APRESOLINE TAB 25 MG PO SCH (05:37)
[2022-07-10] MEDS: ZITHROMAX INJ 500 MG VIAL 500 MG in NS 250 ML IV 250 ML IV SCH (08:25)
[2022-07-10] MEDS: NORCO 5/325 MG TAB PO PRN ×2 (08:27→14:20)
[2022-07-10] MEDS: PLAVIX PO SCH (08:28)
[2022-07-10] MEDS: CARDIZEM CD 240 MG 24-HR PO SCH (08:28)
[2022-07-10] MEDS: HEMOCYTE-PLUS PO SCH (08:28)
[2022-07-10] MEDS: ZOLOFT PO SCH (08:28)
[2022-07-10] MEDS: FLONASE NASAL SPRAY ENOSTRIL SCH (08:44)
[2022-07-10] MEDS: PROTONIX INJ 40 MG VIAL IVP SCH (08:44)
[2022-07-10] MEDS: LANOXIN PO SCH (09:41)
--- NOTE | 2022-07-10 10:34 | RAD ---
HISTORYCOVID, CHFSTUDYCHEST, PA/LAT [id number]/01/2022.TECHNIQUE2 views of the chestFINDINGSThe cardiac and mediastinal contours are within normal limits. The lungs are radiographically clear without focal consolidation or segmental collapse. No pleural effusion or pneumothorax.IMPRESSIONNo acute pulmonary process radiographically.Electronically signed by: Go Barney (Jul 10, 2022 10:31:57)
--- NOTE | 2022-07-10 11:07 | RAD ---
HISTORYHand painSTUDYLeft hand three viewsCOMPARISONNoneFINDINGSThere is no evidence for trauma, specific arthritis, articular deformity or joint erosion. No soft tissue swelling or abnormal calcification is identified.IMPRESSIONNo acute findings or evidence for significant arthropathy.Electronically signed by: BRIJESH GAUTHIER (Jul 10, 2022 11:05:35)
--- NOTE | 2022-07-10 11:10 | RAD ---
HISTORYLeft knee painSTUDYLeft knee three viewsCOMPARISONNoneFINDINGSThere is moderately severe degenerative narrowing and deformity of patellar-femoral, lateral and medial compartments with osteophytes. No erosion, fracture or synovial effusion.IMPRESSIONTricompartmental osteoarthritis.Electronically signed by: BRIJESH GAUTHIER (Jul 10, 2022 11:08:26)
--- NOTE | 2022-07-10 11:11 | RAD ---
HISTORYHand painSTUDYRight hand three viewsCOMPARISONNoneFINDINGSThere is no evidence for recent injury, bone destruction, articular deformity or joint erosion. The soft tissues are unremarkable.IMPRESSIONNo acute findings or evidence for significant arthritis.Electronically signed by: BRIJESH GAUTHIER (Jul 10, 2022 11:09:22)
--- NOTE | 2022-07-10 11:12 | RAD ---
HISTORYFoot painSTUDYRight foot three viewsCOMPARISONNoneFINDINGSThere is no evidence for injury, specific arthritis, bone destruction or articular deformity/erosion. Prominent arterial calcification is present.IMPRESSIONNo acute osseous, joint space or soft tissue abnormality demonstrated.Electronically signed by: BRIJESH GAUTHIER (Jul 10, 2022 11:10:24)
--- NOTE | 2022-07-10 11:13 | RAD ---
HISTORYLeft foot painSTUDYLeft foot three viewsCOMPARISONAugust 2020FINDINGSThere is no evidence for injury, bone destruction, articular deformity or erosion. Vascular calcification is present. Small plantar calcaneal spur.IMPRESSIONNo acute or significant findings left foot.Electronically signed by: BRIJESH GAUTHIER (Jul 10, 2022 11:11:33)
--- NOTE | 2022-07-10 11:14 | RAD ---
HISTORYRight knee painSTUDYRight knee three viewsCOMPARISONNoneFINDINGSModerately severe degenerative narrowing and osteophyte formation at joint spaces with irregularity of the tibial spines and suspect chondrocalcinosis. No bone destruction or synovial effusion.IMPRESSIONTricompartmental osteoarthritis with possible chondrocalcinosis/CPPD.Electronically signed by: BRIJESH GAUTHIER (Jul 10, 2022 11:12:55)
--- NOTE | 2022-07-10 11:16 | RAD ---
HISTORYLupusSTUDYLumbar spine five viewsCOMPARISONSelect At Bellevillech 2017FINDINGSThere is a mild dextroscoliosis present with anatomic alignment of lumbar vertebrae. Mild disc narrowing is present at several levels especially L4-5 and T12-L2. No fracture or bone destruction, or sacroiliac disease is noted.IMPRESSIONNo acute findings. Mild dextroscoliosis with multilevel degenerative discogenic changes.Electronically signed by: BRIJESH GAUTHIER (Jul 10, 2022 11:14:42)
[2022-07-10 13:21] LABS: ALANINE AMINOTRANSFERASE 36 Units/L (12-78); ALBUMIN 2.3 g/dL (3.4-5.0); ALKALINE PHOSPHATASE 102 Units/L (46-116); ASPARTATE AMINO TRANSFERASE 35 Units/L (15-37); BLOOD UREA NITROGEN 40 mg/dL (7-18); CALCIUM 7.4 mg/dL (8.5-10.1); CARBON DIOXIDE 20.6 mmol/L (21-32); CHLORIDE 109 mmol/L (98-107); COR CA(FOR HYPOALB) 8.8 mg/dL (8.5-10.1); COR NA(FOR HYPERGLY) 139 mmol/L (136-145); CREATININE 3.23 mg/dL (0.55-1.02); SODIUM 137 mmol/L (136-145); TOTAL PROTEIN 6.3 g/dL (6.4-8.2); eGFR NON BLACK RACES 15 (>60)
[2022-07-10 13:41] VITALS: BP 179/77
[2022-07-10 13:46] LABS: ABG BASE EXCESS -6.4 mmol/L (-2.0-2.0); ABG HCO3 18.1 mmol/L (22-26)
[2022-07-10] MEDS ORDERED: APRESOLINE TAB 25 MG PO SCH (14:00)
[2022-07-10 14:11] LABS: SERUM ACETONE NEGATIVE (NEGATIVE)
[2022-07-11] MEDS ORDERED: LANOXIN or DIGITEK PO SCH (09:00)
== END 2022-07-10 15:30 | disposition home or self-care (01) | DRG 304 ==
LOC: MED/SURG
PROVIDERS: ADMIT Internal Medicine; ATTEND Internal Medicine
DX: N18.9 Chronic kidney disease, unspecified; N39.0 Urinary tract infection, site not specified; I16.0 Hypertensive urgency; R94.31 Abnormal electrocardiogram [ECG] [EKG]; I25.10 Atherosclerotic heart disease of native coronary artery without angina pectoris; I12.9 Hypertensive chronic kidney disease with stage 1 through stage 4 chronic kidney disease, or unspecified chronic kidney disease; K21.9 Gastro-esophageal reflux disease without esophagitis; E11.40 Type 2 diabetes mellitus with diabetic neuropathy, unspecified; Z86.79 Personal history of other diseases of the circulatory system; N17.8 Other acute kidney failure; E11.65 Type 2 diabetes mellitus with hyperglycemia; U07.1 COVID-19